=== PATIENT | female | born 1935 | race Caucasian/White ===

== ENCOUNTER 2021-10-24 10:13 | Inpatient (IN) | payer MEDICARE ==
[~2021-10-24] VITALS: Ht 152.4 cm; Wt 55.8 kg
--- NOTE | 2021-10-24 10:24 | NUR ---
DIONICIO FAJARDO from Home "Family called seemed slower than usual/AMS unknown LKWT". TO ER BED 10, HOOKED TO MONITOR, CHANGED TO HOSP GOWN,WARM BLANKET PROVIDED. PATIENT AAO x 2. NOT IN DISTRESS. DR MORGAN AT BEDSIDE
--- NOTE | 2021-10-24 10:28 | NUR ---
SENIOR STATISTICAL PROGRAMMER AT BEDSIDE
[2021-10-24] MEDS ORDERED: IV NS 0.9% 1,000 ML BAG IV ONE (10:30)
--- NOTE | 2021-10-24 10:41 | NUR ---
UNABLE TO PROVIDE URINE AT THIS TIME
--- NOTE | 2021-10-24 10:48 | NUR ---
COVID SWAB DONE AND SENT TO LAB
[2021-10-24 10:49] LABS: BASOPHILS % (AUTO) 0.5 % (0.0-2.0); EOSINOPHILS % (AUTO) 0.5 % (0.0-6.0); HEMATOCRIT 27 % (33-45); LYMPHOCYTES # (AUTO) 0.8 K/uL (0.8-4.8); LYMPHOCYTES % (AUTO) 14.3 % (20.0-44.0); MEAN CORPUSCULAR HGB CONC 34 g/dl (31.0-36.0); MEAN CORPUSCULAR VOLUME 101 fL (82-100); MONOCYTES # (AUTO) 0.2 K/uL (0.1-1.30); MONOCYTES % (AUTO) 2.7 % (2.0-12.0); NEUTROPHILS # (AUTO) 4.7 K/uL (1.8-8.9); PLATELET COUNT (AUTO) 475 K/uL (150-450); RED BLOOD CELL COUNT(AUTO) 2.68 MIL/uL (4.0-5.2); WHITE BLOOD COUNT (AUTO) 5.8 K/uL (4.3-11.0)
[2021-10-24 11:12] LABS: ALANINE AMINOTRANSFERASE 58 U/L (12-78); ALBUMIN 3.1 g/dL (3.4-5.0); ALKALINE PHOSPHATASE 94 U/L (46-116); ASPARTATE AMINOTRANSFERASE 181 U/L (15-37); BILIRUBIN,DIRECT 0.2 mg/dL (0.0-0.2); BILIRUBIN,TOTAL 0.9 mg/dL (0.2-1.0); CALCIUM, SERUM 8.1 mg/dL (8.5-10.1); CARBON DIOXIDE 21 mmol/L (21-32); CHLORIDE 96 mmol/L (98-107); CREATININE 1.5 mg/dL (0.6-1.3); GLUCOSE 149 mg/dL (74-106); POTASSIUM 4.4 mmol/L (3.5-5.1); SODIUM SERUM 129 mmol/L (136-145); TOTAL PROTEIN, SERUM 7.1 g/dL (6.4-8.2); UREA NITROGEN, BLOOD 33 mg/dL (7-18)
--- NOTE | 2021-10-24 11:25 | NUR ---
MOVE SHEET SUBMITTED.
--- NOTE | 2021-10-24 11:29 | NUR ---
URINE SAMPLE COLLECTED VIA STRAIGHT CATHETER, SENT TO LAB. URINE OUTPUT TOTAL 600CC, MADE AWARE
[2021-10-24] MEDS ORDERED: CEFTRIAXONE 1GM BAG (ER ONLY) 1 GM/50 ML PIGGYBACK IV ONE (12:00)
[2021-10-24] MEDS ORDERED: CEFTRIAXONE 1GM BAG (ER ONLY) 50 ML IV ONE (12:00)
--- NOTE | 2021-10-24 12:29 | NUR ---
DR. PETERSON SPEAKING WITH DR. MORGAN.
[2021-10-24] MEDS ORDERED: ASPIRIN 325 MG TABLET ONE (12:30)
[2021-10-24] MEDS ORDERED: ASPIRIN 325 MG TABLET PO ONE (12:30)
--- NOTE | 2021-10-24 12:30 | NUR ---
[facility] CALLED CAFETERIA MONITOR PAGED.
[2021-10-24] MEDS ORDERED: HYDR500C2 PO (12:31)
[2021-10-24] MEDS ORDERED: LEVE500T9 PO (12:31)
[2021-10-24] MEDS ORDERED: CINN500C2 PO (12:31)
[2021-10-24] MEDS ORDERED: ASPI-1169 PO (12:31)
[2021-10-24] MEDS ORDERED: LOSA100T31 PO (12:31)
[2021-10-24] MEDS ORDERED: CARV6.252 PO (12:31)
[2021-10-24] MEDS ORDERED: INSU100I24 SQ (12:31)
[2021-10-24] MEDS ORDERED: GABA-532 PO (12:31)
[2021-10-24] MEDS ORDERED: DULA1.5P SQ (12:31)
[2021-10-24] MEDS ORDERED: PRAV10TA40 PO (12:31)
[2021-10-24] MEDS ORDERED: LEVO25TA2 PO (12:31)
[2021-10-24] MEDS ORDERED: ASCO-352 PO (12:31)
[2021-10-24] MEDS ORDERED: UBID200C36 PO (12:31)
[2021-10-24 12:53] LABS: BILIRUBIN,URINE NEGATIVE (NEGATIVE); COLOR,URINE YELLOW (YELLOW); LEUKOCYTE ESTERASE ,URINE NEGATIVE (NEGATIVE); NITRITE, URINE NEGATIVE (NEGATIVE); PROTEIN,URINE 30 mg/dl (NEGATIVE); UGLUCOSE NEGATIVE (NEGATIVE); UROBILINOGEN,URINE 0.2 EU/dL (0.2)
[2021-10-24 13:23] LABS: BACTERIA,URINE Few /HPF (None Seen); RBC,URINE 0-2 /HPF (0-2); SQUAMOUS EPITHELIAL CELL,UR Rare /HPF (None Seen); URINE AMORPHOUS URATE Moderate /HPF (None Seen); WBC,URINE 0-2 /HPF (0-3)
[2021-10-24] MEDS ORDERED: ONDANSETRON HCL/PF 4 MG/2 ML VIAL IVP PRN (15:00)
[2021-10-24] MEDS ORDERED: IV NS 0.9% 1,000 ML IV ONE (15:00)
[2021-10-24] MEDS ORDERED: PIPERACILLIN /TAZOBACTAM 3.375 G in IV D5W 50 ML IV SCH (18:00)
[2021-10-24] MEDS ORDERED: VANCOMYCIN 1 GM in IV D5W 250ml IV SCH (18:00)
[2021-10-24] MEDS ORDERED: GABAPENTIN 100 MG CAPSULE ONE (18:22)
[2021-10-24] MEDS: GABAPENTIN 100 MG CAPSULE PO SCH (18:23)
--- NOTE | 2021-10-24 18:42 | NUR ---
GOING TO TELE 113.1
--- NOTE | 2021-10-24 19:19 | NUR ---
TROPONIN 378
--- NOTE | 2021-10-24 19:41 | NUR ---
PER [facility] LABORATORY ASSISTANT; [facility] RN RECIEVED REPORT
--- NOTE | 2021-10-24 19:42 | NUR ---
REPORT GIVEN TO LUIS ALFREDO ELISE OF TELE UNIT
--- NOTE | 2021-10-24 19:45 | NUR ---
MEDICAL OFFICE TECHNICIAN NOTES: RECEIVED REPORT FROM FRONT END DEVELOPER JAVASCRIPT HTML CSS NATTY. PT TRANSFERRED TO [facility] FROM ER VIA [facility] WITH ACLS PROTOCOL. PLACED IN ROOM 113 BED 2. PT AWAKE, ALERT/ORIENTED X3 AND VERBALLY RESPONSIVE. BREATHING EVEN AND UNLABORED. ON O2 AT 2L/MIN VIA N/C, O2 SAT 100%. PT TOLERATED WELL. IV ACCESS ON LAC#18G AND LFA#22G INTACT AND PATENT. NO S/S OF INFILTRATIONS. BODY ASSESSMENT DONE. NOTED SKIN REDNESS ON BOTH BIG TOES, LT HEEL AND SACRUM AREA. NO OPEN SKIN OR ANY OTHER SKIN DISCOLORATIONS NOTED. NO C/O PAIN OR DISCOMFORT. NO ACUTE DISTRESS. ALL SAFETY MEASURES IN PLACE. BED IN LOWEST POSITION AND LOCKED. SIDE RAILS UP X2, PLACE CALL LIGHT WITH IN REACH. WILL CONTINUE TO MONITOR
--- NOTE | 2021-10-24 19:56 | NUR ---
PT TRANSFERRED TO [facility] 113-2 VIA ACLS PROTOCOL. ALL BELONGINGS WITH PT. VSS
--- NOTE | 2021-10-24 19:58 | NUR ---
NOTIFIED MR KALIN SARGENT THAT PT GOT ADMITTED TO [facility]
[2021-10-24 20:00] VITALS: BP 108/52
--- NOTE | 2021-10-24 21:56 | NUR ---
RN NOTES: PT WANTS WATER TO DRINK. NOTIFIED ENZO SANTILLAN. ORDERED- BED SIDE SWALLOW EVAL. NOTED AND CARRIED OUT. GAVE HER SEVERAL SPOONS OF WATER, PT WAS ABLE TO SWALLOW WITHOUT ANY DIFFICULTIES. NOTIFIED DR. BELLO.
[2021-10-24] MEDS ORDERED: CEFTRIAXONE 1 G in IV D5W 50 ML IV SCH (22:00)
[2021-10-24] MEDS: IV NS 0.9% 1,000 ML IV PRN (22:03)
[2021-10-24] MEDS ORDERED: CEFTRIAXONE 1 G VIAL ONE (22:13)
[2021-10-24] MEDS: ATORVASTATIN 10 MG TABLET PO SCH (22:17)
[2021-10-25] VITALS (11 sets, daily range): BP systolic 99–153; BP diastolic 38–87
--- NOTE | 2021-10-25 03:43 | NUR ---
RN NOTES: RECEIVED CRITICAL LAB(ASHLEY), PT'S TROPONIN LEVEL 237 NOW. INITIALLY IT WAS-551 YESTERDAY, AT [phone], NOW TRENDING DOWN. MADE AWARE ENZO SANTILLAN WITH NNO. WILL CONTINUE TO MONITOR
--- NOTE | 2021-10-25 06:43 | NUR ---
RN CLOSING NOTES: PT SLEEPING IN BED, BUT EASILY AROUSABLE, ALERT/ORIENTED X3 AND VERBALLY RESPONSIVE. BREATHING EVEN AND UNLABORED. ON O2 AT 2L/MIN VIA N/C, O2 SAT 98%. PT TOLERATED WELL. IV ACCESS ON LAC#18G AND LFA#22G INTACT AND PATENT. NO S/S OF INFILTRATIONS. RUNNING NS AT 75CC/HR. NO C/O PAIN OR DISCOMFORT. NO ACUTE DISTRESS. ALL DUE MEDS GIVEN ORDERED. ALL SAFETY MEASURES IN PLACE. BED IN LOWEST POSITION AND LOCKED. SIDE RAILS UP X2, PLACE CALL LIGHT WITH IN REACH. WILL ENDORSE TO MORNING SHIFT NURSE.
[2021-10-25 07:18] LABS: BASOPHILS % (AUTO) 0.2 % (0.0-2.0); EOSINOPHILS % (AUTO) 1.3 % (0.0-6.0); HEMATOCRIT 23 % (33-45); HEMOGLOBIN 7.6 g/dL (11.5-14.8); LYMPHOCYTES # (AUTO) 0.7 K/uL (0.8-4.8); LYMPHOCYTES % (AUTO) 15.2 % (20.0-44.0); MEAN CORPUSCULAR HGB CONC 33 g/dl (31.0-36.0); MEAN CORPUSCULAR VOLUME 101 fL (82-100); MONOCYTES # (AUTO) 0.2 K/uL (0.1-1.30); NEUTROPHILS # (AUTO) 3.6 K/uL (1.8-8.9); NEUTROPHILS % (AUTO) 79.3 % (43.0-81.0); PLATELET COUNT (AUTO) 391 K/uL (150-450); RED BLOOD CELL COUNT(AUTO) 2.28 MIL/uL (4.0-5.2); WHITE BLOOD COUNT (AUTO) 4.5 K/uL (4.3-11.0)
--- NOTE | 2021-10-25 07:30 | NUR ---
RN OPENING NOTES; RECEIVED PATIENT IN BED, AWAKE, ALERT X 2. PATIENT IS ON OXYGEN @ 2L/MIN VIA N/C. PATIENT HAS NO S/ OF SOB, NOTED TO HAVE UNLABORED BREATHING, NO RESPIRATORY DISTRESS NOTED. PATIENT IS ON SR WITH HR OF 67. PATIENT HAS IV SITE ON LAC # 18 INFUSING WITH NS @ 75CC/HR, NO S/S OF INFILTRATION OF THE IV SITE, IV SITE ON LFA # 22, PATENT AND FLUSHING WELL. NO S/S OF PAIN OR DISCOMFORT. SKIN WARM AND DRY TO TOUCH. SAFETY MEASURES INITIATED. HOB ELEVATED, BED LOCKED AND IN LOWEST POSITION, SR UP, CALL LIGHT WITHIN REACH. WILL CONTINUE TO MONITOR THROUGH SHIFT.
[2021-10-25 08:12] LABS: ALBUMIN 2.5 g/dL (3.4-5.0); BILIRUBIN,TOTAL 0.4 mg/dL (0.2-1.0); CALCIUM, SERUM 7.7 mg/dL (8.5-10.1); CREATININE 1.3 mg/dL (0.6-1.3); MAGNESIUM 2.4 mg/dL (1.8-2.4); PHOSPHORUS 4.3 mg/dL (2.5-4.9); TOTAL PROTEIN, SERUM 5.9 g/dL (6.4-8.2)
[2021-10-25] MEDS ORDERED: CEFTRIAXONE 1 G in IV D5W 50 ML IV SCH (08:17)
[2021-10-25] MEDS: LEVOTHYROXINE SODIUM 25 MCG TABLET PO SCH (08:24)
[2021-10-25] MEDS: LEVETIRACETAM (250 MG) 250 MG TABLET PO SCH ×2 (08:25→17:05)
[2021-10-25] MEDS: ASPIRIN 81 MG TAB.CHEW PO SCH (08:25)
[2021-10-25] MEDS: ASCORBIC ACID 500 MG TABLET PO SCH ×2 (08:25→17:05)
[2021-10-25] MEDS: ACETAMINOPHEN 325 MG TABLET PO PRN (08:26)
[2021-10-25] MEDS: INSULIN GLARGINE, 100 UNIT/ML CARTRIDGE SQ SCH ×2 (08:27→16:49)
--- NOTE | 2021-10-25 08:28 | NUR ---
LANTUS HELD DUE TO PATIENT'S BLOOD SUGAR WAS 82 MG/DL. PATIENT ONLY CONSUMED 25% OF BREAKFAST
[2021-10-25] MEDS ORDERED: Medication Not On Formulary EA (Pravastatin Sodium 10 MG) PO SCH (09:00)
[2021-10-25] MEDS ORDERED: ASPIRIN 81 MG TAB.CHEW PO SCH (09:00)
[2021-10-25] MEDS ORDERED: UBIDECARENONE 200 MG PO SCH (09:00)
[2021-10-25] MEDS ORDERED: PANTOPRAZOLE 40 MG VIAL IV SCH (09:00)
[2021-10-25] MEDS ORDERED: Medication Not On Formulary EA (Levetiracetam (Keppra) 500 MG) PO SCH (09:00)
[2021-10-25] MEDS ORDERED: CINNAMON BARK 500 MG PO SCH (09:00)
[2021-10-25] MEDS: HYDROXYUREA 500 MG CAPSULE PO SCH (09:34)
[2021-10-25 10:03] LABS: THYROID STIMULATING HORMONE 1.604 uIU/mL (0.358-3.74)
--- NOTE | 2021-10-25 11:20 | NUR ---
RECEIVED A CALL FROM [facility] STATING THAT THEY DON'T CARRY TRULICITY. SPOKE WITH AND SAID THAT HE WILL BRING THE MED TODAY WHEN HE COMES IN AN HOUR.
[2021-10-25 11:26] LABS: IRON, SERUM 25 ug/dl (50-175); TOTAL IRON BINDING CAPACITY 181 ug/dl (250-450)
[2021-10-25] MEDS: IV NS 0.9% 1,000 ML IV PRN (12:22)
[2021-10-25 12:27] LABS: FERRITIN 617 ng/mL (8-388)
--- NOTE | 2021-10-25 12:47 | NUR ---
PT'S CAME BY BUT DID NOT BRING THE MEDICATION TRULICITY. WILL BRING IT LATER IN PM
[2021-10-25] MEDS: GABAPENTIN 100 MG CAPSULE PO SCH (17:04)
--- NOTE | 2021-10-25 18:52 | NUR ---
RN CLOSING NOTES: PATIENT IN BED, AWAKE, ALERT X 2. PATIENT REMAINS ON OXYGEN @ 2L/MIN VIA N/C. NO SOB NOTED AT THIS TIME, BREATHING EVEN AND UNLABORED. NO RESPIRATORY DISTRESS NOTED. PATIENT IS ON SR WITH HR OF 72. AMY HAS AN ONGOING BLOOD TRANSFUSION ORDERED BY DR. PETERSON, NO IMMEDIATE REACTIONS NOTED ON THE PATIENT AT THIS TIME, NO C/O PAIN OR DISCOMFORT. PATIENT HAS IV SITE ON LAC # 18. NO S/S OF INFILTRATION OF THE IV SITE, IV SITE ON LFA # 22, PATENT AND FLUSHING WELL. . SAFETY MEASURES INITIATED. HOB ELEVATED, BED LOCKED AND IN LOWEST POSITION, SR UP, CALL LIGHT WITHIN REACH. WILL CONTINUE TO MONITOR THROUGH SHIFT. Addendum: 10/25/21 at 1857 by THANH BRIONES RN WILL ENDORSE TO NEXT SHIFT NURSE FOR CONTINUITY OF CARE AND TO MONITOR COMPLETION OF BLOOD TRANSFUSION.
--- NOTE | 2021-10-25 18:55 | NUR ---
GOSIA NOTES: BLOOD TRANSFUSION WAS COMPLETED. PT TOLERATED WELL. NO ADVERSE REACTIONS. PT AFEBRILE. V/S STABLE. WILL CONTINUE TO MONITOR Addendum: 10/25/21 at 2232 by WILLIAM LOBATO RN wrong time
--- NOTE | 2021-10-25 19:55 | NUR ---
RN NOTES: BLOOD TRANSFUSION WAS COMPLETED. PT TOLERATED WELL. NO ADVERSE REACTIONS. NO NOTED RASHES OR HIVES. PT AFEBRILE. WILL CONTINUE TO MONITOR
--- NOTE | 2021-10-25 20:45 | NUR ---
2044 Noted patient tachypneic RR 36. O2 saturation 82% on 4L NC. Patient awake and verbally responsive. Skin pale and clammy. BS 167mg/dl when checked. Placed patient on NRM noted O2 saturation went up to 93%. Repositioned patient on high fowlers for maximum oxygenation. With c/o difficulty breathing when asked. Called RT to check patient. Called placed to HYDRO PLANT SITE MANAGER Palomares and made him aware of patient's change of condition with orders given. Orders noted and carried out.
--- NOTE | 2021-10-25 20:55 | NUR ---
2054 Vital signs taken as follows: BP 142/67, HR 118 sinus, RR 38, O2 sat 93% on NRM.
[2021-10-25 21:12] LABS: BASOPHILS % (AUTO) 0.2 % (0.0-2.0); EOSINOPHILS % (AUTO) 0.8 % (0.0-6.0); HEMATOCRIT 37 % (33-45); HEMOGLOBIN 11.9 g/dL (11.5-14.8); LYMPHOCYTES # (AUTO) 0.8 K/uL (0.8-4.8); LYMPHOCYTES % (AUTO) 5.3 % (20.0-44.0); MEAN CORPUSCULAR HGB CONC 33 g/dl (31.0-36.0); MEAN CORPUSCULAR VOLUME 102 fL (82-100); MONOCYTES # (AUTO) 0.2 K/uL (0.1-1.30); MONOCYTES % (AUTO) 1.1 % (2.0-12.0); NEUTROPHILS # (AUTO) 14.3 K/uL (1.8-8.9); NEUTROPHILS % (AUTO) 92.6 % (43.0-81.0); PLATELET COUNT (AUTO) 488 K/uL (150-450); RED BLOOD CELL COUNT(AUTO) 3.59 MIL/uL (4.0-5.2); WHITE BLOOD COUNT (AUTO) 15.4 K/uL (4.3-11.0)
[2021-10-25 21:21] LABS: ABG BASE EXCESS -14.5 mmol/L; ABG OXYGEN SATURATION 94.4 % (92.0-98.5); ABG PCO2 17.6 mmHg (35.0-45.0); ABG PO2 76.5 mmHg (75.0-100.0); AaDO2 618.9 mmHg; COHb 0.3 % (0.5-1.5); MetHb 0.3 % (0.0-1.5); O2Hb 93.8 % (94.0-97.0); SITE, ABG Right Radial; VENT MODE, BG 15LPM NRB
--- NOTE | 2021-10-25 21:30 | NUR ---
130 ABG and CBC results relayed to MECHANICAL METER TESTER Jelani. Awaiting orders at this time. Patient awake and verbally responsive. Vital signs checked again as follows: BP 136/77 HR 117 sinus, RR 40, O2 saturation 96% on NRM. Patient remains verbally responsive. Requesting to use bedside commode. Explained to patient that she's too short of breath to get on the commode. HOB kept elevated for maximum oxygenation. CXR result still pending. Patient being closely monitored.
--- NOTE | 2021-10-25 22:09 | NUR ---
8247 Called Radiology to follow up on CXR result. Tech will fax order now.
[2021-10-25] MEDS: ATORVASTATIN 10 MG TABLET PO SCH (22:22)
[2021-10-25] MEDS: CEFTRIAXONE 1 G in IV D5W 50 ML IV SCH (22:23)
--- NOTE | 2021-10-25 22:30 | NUR ---
2230 PACKAGING SPECIALIST Palomares at bedside and examined patient with order made.
--- NOTE | 2021-10-25 22:35 | NUR ---
2021 INSTRUCTIONAL RESOURCE TEACHER Jelani made aware that patient keeps removing her NRM causing her O2 saturation to drop immediately to low 80s with order to apply soft wrist restraints to prevent from pulling life saving device. Order noted and carried out.
[2021-10-25] MEDS ORDERED: LEVALBUTEROL HCL NEB 1.25 MG/0.5 ML VIAL.NEB NEB SCH (23:00)
[2021-10-25] MEDS ORDERED: IPRATROPIUM NEB FS 0.5 MG/2.5 ML AMPUL.NEB NEB PRN (23:00)
[2021-10-25] MEDS ORDERED: LEVALBUTEROL HCL NEB 1.25 MG/0.5 ML VIAL.NEB NEB PRN (23:45)
[2021-10-26] VITALS (26 sets, daily range): BP systolic 87–152; BP diastolic 20–70
[2021-10-26] MEDS ORDERED: FUROSEMIDE 40 MG/4 ML VIAL IV ONE (00:30)
--- NOTE | 2021-10-26 00:30 | NUR ---
0030 OCC THER Palomares in the unit and re assessed patient with orders to transfer to icu for rescue bipap and give Lasix 40mg ivp once. Order noted.
--- NOTE | 2021-10-26 01:13 | NUR ---
0113 Transferred to ICU on ACLS protocol. Patient awake and verbally responsive. Remains tachypneic on NRM. O2 saturation 96%. HOB elevated for maximum oxygenation.
--- NOTE | 2021-10-26 01:15 | NUR ---
ICU/RN: RECEIVED PT FROM [facility]. CORNELIUS PAUL RN PLACED GUSTAFSON CATH 1150ML [place] URINE. RETURNED. PT LINENS CHANGED. PT POSITIONED IN HIGH FOLWERS POSITION. BED IN LOW LOCKED POSITION SIDE RAILS UP. CONTINUE PLAN OF CARE.
--- NOTE | 2021-10-26 01:28 | NUR ---
RN NOTES: REPORT GIVEN TO JAREN NEWSPAPER EDITOR. PT TRANSFERRED TO ICU PER DR'S ORDER WITH ACLS PROTOCOL.
--- NOTE | 2021-10-26 01:46 | NUR ---
RT NOTE PATIENT PLACED ON BIPAP ON ORDERED SETTINGS OF S/T 15/5 RR20 100%. PATIENT IS AWAKE AND ALERT. ALARMS ARE SET AND AUDIBLE. MECHANICAL VENT IS PLUGGED INTO RED OUTLET. EMERGENCY EQUIPMENT AT PATIENT BEDSIDE. WAITING FOR FURTHER ORDERS. Addendum: 10/26/21 at 0148 by TOMAS LOPEZ RT Amended: Links added.
[2021-10-26] MEDS ORDERED: LORAZEPAM INJ 2 MG/ML VIAL IV PRN (02:00)
[2021-10-26 03:18] LABS: ABG BASE EXCESS -14.7 mmol/L; ABG OXYGEN SATURATION 99.3 % (92.0-98.5); ABG PCO2 22.4 mmHg (35.0-45.0); ABG PH 7.275 (7.350-7.450); ABG PO2 258.2 mmHg (75.0-100.0); AaDO2 432.4 mmHg; COHb 0.3 % (0.5-1.5); MetHb 0.4 % (0.0-1.5); O2Hb 98.6 % (94.0-97.0); SITE, ABG Right Radial; VENT MODE, BG S/T 15/5 RR20 100%
--- NOTE | 2021-10-26 03:25 | NUR ---
ICU/RN: ABG RESULTS RELAYED TO EUGENIA LORA. NEW ORDERS FOR ABG @0600 AND IV SOLUMEDROL 125MG x1 NOW. WILL CONTINUE WITH PLAN OF CARE.
[2021-10-26] MEDS ORDERED: methylPREDNISolone SOD SUCC 125 MG/2ML VIAL IV ONE (03:30)
--- NOTE | 2021-10-26 03:32 | NUR ---
RT NOTE POST BIPAP ABG RESULTS REPORTED TO FIO2 TITRATED TO 50%. FOLLOW UP ABG AT 0600. Addendum: 10/26/21 at 0332 by TOMAS LOPEZ RT Amended: Links added.
[2021-10-26 03:58] LABS: BASOPHILS % (AUTO) 0.2 % (0.0-2.0); EOSINOPHILS % (AUTO) 0.1 % (0.0-6.0); HEMATOCRIT 34 % (33-45); HEMOGLOBIN 11.3 g/dL (11.5-14.8); LYMPHOCYTES # (AUTO) 0.5 K/uL (0.8-4.8); LYMPHOCYTES % (AUTO) 3.9 % (20.0-44.0); MEAN CORPUSCULAR HGB CONC 33 g/dl (31.0-36.0); MEAN CORPUSCULAR VOLUME 99 fL (82-100); MONOCYTES # (AUTO) 0.2 K/uL (0.1-1.30); MONOCYTES % (AUTO) 1.3 % (2.0-12.0); NEUTROPHILS # (AUTO) 13.2 K/uL (1.8-8.9); NEUTROPHILS % (AUTO) 94.5 % (43.0-81.0); PLATELET COUNT (AUTO) 444 K/uL (150-450); RED BLOOD CELL COUNT(AUTO) 3.47 MIL/uL (4.0-5.2); WHITE BLOOD COUNT (AUTO) 13.9 K/uL (4.3-11.0)
--- NOTE | 2021-10-26 04:00 | NUR ---
ICU/RN: LABS DRAWN EARLY PER EUGENIA GIRALDO ACNP REQUEST.
[2021-10-26 04:12] LABS: CARBON DIOXIDE 14 mmol/L (21-32); CHLORIDE 97 mmol/L (98-107); GLUCOSE 192 mg/dL (74-106); MAGNESIUM 2.2 mg/dL (1.8-2.4); PHOSPHORUS 6.3 mg/dL (2.5-4.9); POTASSIUM 5.4 mmol/L (3.5-5.1); SODIUM SERUM 127 mmol/L (136-145); UREA NITROGEN, BLOOD 42 mg/dL (7-18)
[2021-10-26] MEDS ORDERED: ACETAMINOPHEN 650 MG/SUPP.RECT RC PRN (04:30)
--- NOTE | 2021-10-26 04:51 | NUR ---
ICU/RN: CRITICAL LABS AND PT CONDITION RELAYED TO EUGENIA LORA. WILL CONTINUE PLAN OF CARE.
[2021-10-26 05:08] LABS: BILIRUBIN,DIRECT 0.2 mg/dL (0.0-0.2)
[2021-10-26 06:14] LABS: ABG BASE EXCESS -15.3 mmol/L; ABG OXYGEN SATURATION 96.8 % (92.0-98.5); ABG PH 7.317 (7.350-7.450); ABG PO2 99.2 mmHg (75.0-100.0); AaDO2 238.2 mmHg; COHb 0.3 % (0.5-1.5); MetHb 0.6 % (0.0-1.5); O2Hb 95.9 % (94.0-97.0); SITE, ABG Right Brachial; VENT MODE, BG S/T 15/5 RR20 50%
--- NOTE | 2021-10-26 06:38 | NUR ---
ICU/RN: 0600 ABG RELAYED TO EUGENIA GIRALDO ACNP NO NEW ORDERS.
--- NOTE | 2021-10-26 07:45 | NUR ---
pt. is awake and follow commands placed into nasal cannula @ 3 lpm o2 flow. spo2 95% . bipap on stand by @ bedside. Addendum: 10/26/21 at 0747 by HENRIETTA MEI RT Amended: Links added.
[2021-10-26] MEDS: LEVOTHYROXINE SODIUM 25 MCG TABLET PO SCH (07:56)
--- NOTE | 2021-10-26 08:00 | NUR ---
Dr Mireles @ bedside assessing patient. Updated MD with patient progress
[2021-10-26] MEDS: LEVETIRACETAM (250 MG) 250 MG TABLET PO SCH ×2 (08:15→17:02)
[2021-10-26] MEDS: ASPIRIN 81 MG TAB.CHEW PO SCH (08:15)
[2021-10-26] MEDS: HYDROXYUREA 500 MG CAPSULE PO SCH (08:15)
[2021-10-26] MEDS: ASCORBIC ACID 500 MG TABLET PO SCH ×2 (08:16→17:02)
[2021-10-26] MEDS: INSULIN GLARGINE, 100 UNIT/ML CARTRIDGE SQ SCH (08:59)
[2021-10-26] MEDS ORDERED: INSULIN REGULAR, HUMAN 100 UNIT/ML 3 ML VIAL SQ PRN (09:00)
[2021-10-26] MEDS ORDERED: DEXTROSE 50%-WATER 50 ML DISP.SYRIN IV PRN (09:00)
[2021-10-26] MEDS ORDERED: *INSULIN REGULAR(HUMULIN R)HUM 100 UNIT/ML VIAL SQ PRN (09:00)
[2021-10-26] MEDS: PANTOPRAZOLE 40 MG TABLET.DR PO SCH (09:03)
[2021-10-26] MEDS ORDERED: IPRATROPIUM NEB FS 0.5 MG/2.5 ML AMPUL.NEB NEB PRN (10:20)
[2021-10-26] MEDS ORDERED: ALBUTEROL FS 2.5 MG/0.5 ML VIAL.NEB NEB PRN ×2 (10:30)
[2021-10-26] MEDS ORDERED: IV NS 0.9% 1,000 ML IV PRN (12:00)
--- NOTE | 2021-10-26 12:09 | NUR ---
Family @ bedside (Fozia -niece) conversing with patient. Updated family of plan of care.
[2021-10-26 12:20] LABS: ABG BASE EXCESS -16.3 mmol/L; ABG OXYGEN SATURATION 92.1 % (92.0-98.5); ABG PO2 71.7 mmHg (75.0-100.0); AaDO2 142.6 mmHg; COHb 0.1 % (0.5-1.5); MetHb 0.4 % (0.0-1.5); O2Hb 91.6 % (94.0-97.0); SITE, ABG Right Brachial; VENT MODE, BG nasal cannula
[2021-10-26] MEDS ORDERED: IV D5W 1,000 ML IV ONE (14:00)
[2021-10-26] MEDS: INSULIN REGULAR, HUMAN 100 UNIT in IV NS 0.9% 99 ML IV PRN ×2 (15:13)
[2021-10-26] MEDS: BLOOD SUGAR DIAGNOSTIC 1 EACH STRIP IN SCH ×7 (17:04→23:01)
[2021-10-26] MEDS: GABAPENTIN 100 MG CAPSULE PO SCH (17:29)
--- NOTE | 2021-10-26 19:56 | NUR ---
RT NOTE PT RECEIVED ON 3LPM NASAL CANNULA. PT IS RESTING AND SLEEPING BUT RR > 30. SPO2 @ 97%. BIPAP AT STANDBY, WILL CONTINUE TO MONITOR CLOSELY.
[2021-10-26 20:49] LABS: CALCIUM, SERUM 7.8 mg/dL (8.5-10.1); CARBON DIOXIDE 13 mmol/L (21-32); CHLORIDE 99 mmol/L (98-107); CREATININE 2.4 mg/dL (0.6-1.3); GLUCOSE 310 mg/dL (74-106); POTASSIUM 3.7 mmol/L (3.5-5.1); SODIUM SERUM 128 mmol/L (136-145); UREA NITROGEN, BLOOD 57 mg/dL (7-18)
--- NOTE | 2021-10-26 21:19 | NUR ---
ICU/RN: POTASSIUM REPLACEMENT PER DKA PROTOCOL. WILL CONTINUE WITH PLAN OF CARE.
[2021-10-26] MEDS ORDERED: POTASSIUM CL. PREMIX PERIPHER. 50 ML IV ONE (21:30)
[2021-10-26] MEDS: ATORVASTATIN 10 MG TABLET PO SCH (22:03)
[2021-10-26] MEDS: CEFTRIAXONE 1 G in IV D5W 50 ML IV SCH (22:32)
[2021-10-27] VITALS (32 sets, daily range): BP systolic 89–149; BP diastolic 48–105
[2021-10-27] MEDS: BLOOD SUGAR DIAGNOSTIC 1 EACH STRIP IN SCH ×17 (00:05→21:44)
[2021-10-27 00:52] LABS: CALCIUM, SERUM 8.1 mg/dL (8.5-10.1); CARBON DIOXIDE 16 mmol/L (21-32); CHLORIDE 99 mmol/L (98-107); CREATININE 2.4 mg/dL (0.6-1.3); GLUCOSE 252 mg/dL (74-106); POTASSIUM 4.2 mmol/L (3.5-5.1); SODIUM SERUM 128 mmol/L (136-145); UREA NITROGEN, BLOOD 59 mg/dL (7-18)
[2021-10-27 03:57] LABS: BASOPHILS % (AUTO) 0.1 % (0.0-2.0); HEMATOCRIT 33 % (33-45); HEMOGLOBIN 11.3 g/dL (11.5-14.8); LYMPHOCYTES # (AUTO) 0.5 K/uL (0.8-4.8); LYMPHOCYTES % (AUTO) 3.6 % (20.0-44.0); MEAN CORPUSCULAR HGB CONC 34 g/dl (31.0-36.0); MEAN CORPUSCULAR VOLUME 96 fL (82-100); MONOCYTES # (AUTO) 0.3 K/uL (0.1-1.30); MONOCYTES % (AUTO) 2.2 % (2.0-12.0); NEUTROPHILS # (AUTO) 12.8 K/uL (1.8-8.9); NEUTROPHILS % (AUTO) 94.1 % (43.0-81.0); PLATELET COUNT (AUTO) 403 K/uL (150-450); RED BLOOD CELL COUNT(AUTO) 3.44 MIL/uL (4.0-5.2); WHITE BLOOD COUNT (AUTO) 13.6 K/uL (4.3-11.0)
[2021-10-27 04:07] LABS: CALCIUM, SERUM 8.2 mg/dL (8.5-10.1); CARBON DIOXIDE 16 mmol/L (21-32); CHLORIDE 98 mmol/L (98-107); CREATININE 2.3 mg/dL (0.6-1.3); GLUCOSE 203 mg/dL (74-106); SODIUM SERUM 129 mmol/L (136-145); UREA NITROGEN, BLOOD 57 mg/dL (7-18)
[2021-10-27 04:12] LABS: ALANINE AMINOTRANSFERASE 84 U/L (12-78); ALBUMIN 2.5 g/dL (3.4-5.0); ALKALINE PHOSPHATASE 107 U/L (46-116); ASPARTATE AMINOTRANSFERASE 155 U/L (15-37); BILIRUBIN,TOTAL 0.3 mg/dL (0.2-1.0); MAGNESIUM 2.4 mg/dL (1.8-2.4); PHOSPHORUS 4.6 mg/dL (2.5-4.9); TOTAL PROTEIN, SERUM 6.4 g/dL (6.4-8.2)
[2021-10-27] MEDS: BLOOD SUGAR DIAGNOSTIC 1 EACH STRIP VI SCH ×2 (06:42→12:02)
[2021-10-27] MEDS: LEVOTHYROXINE SODIUM 25 MCG TABLET PO SCH (07:46)
[2021-10-27] MEDS: PANTOPRAZOLE 40 MG TABLET.DR PO SCH (08:13)
[2021-10-27] MEDS: ASPIRIN 81 MG TAB.CHEW PO SCH (08:13)
[2021-10-27] MEDS: HYDROXYUREA 500 MG CAPSULE PO SCH (08:13)
[2021-10-27] MEDS: LEVETIRACETAM (250 MG) 250 MG TABLET PO SCH ×2 (08:15→17:30)
[2021-10-27] MEDS: ASCORBIC ACID 500 MG TABLET PO SCH ×2 (08:15→17:30)
[2021-10-27] MEDS: INSULIN REGULAR, HUMAN 100 UNIT in IV NS 0.9% 99 ML IV PRN ×2 (08:33)
[2021-10-27 08:45] LABS: CALCIUM, SERUM 8.3 mg/dL (8.5-10.1); CARBON DIOXIDE 16 mmol/L (21-32); CHLORIDE 101 mmol/L (98-107); CREATININE 2.1 mg/dL (0.6-1.3); GLUCOSE 151 mg/dL (74-106); POTASSIUM 4.2 mmol/L (3.5-5.1); SODIUM SERUM 130 mmol/L (136-145); UREA NITROGEN, BLOOD 54 mg/dL (7-18)
[2021-10-27] MEDS ORDERED: IV D5/ 0.9% NACL 1,000 ML IV PRN (09:00)
[2021-10-27 09:13] LABS: ABG BASE EXCESS -10.1 mmol/L; ABG OXYGEN SATURATION 95.8 % (92.0-98.5); ABG PCO2 18.7 mmHg (35.0-45.0); ABG PH 7.428 (7.350-7.450); ABG PO2 83.1 mmHg (75.0-100.0); AaDO2 108.8 mmHg; COHb 0.3 % (0.5-1.5); MetHb 0.4 % (0.0-1.5); O2Hb 95.1 % (94.0-97.0); SITE, ABG Right Radial
--- NOTE | 2021-10-27 09:31 | NUR ---
RELAYED TO DR. JOHNSON RECENT LABS, BMP.
--- NOTE | 2021-10-27 09:48 | NUR ---
DR JOHNSON SEEN PT. WITH NEW ORDERS NOTED OF IVF.
[2021-10-27] MEDS ORDERED: Sodium Chloride 154 MEQ in IV 10% DEXTROSE 1,000 ML IV SCH (10:00)
[2021-10-27 12:15] LABS: CARBON DIOXIDE 13 mmol/L (21-32); CHLORIDE 101 mmol/L (98-107); GLUCOSE 197 mg/dL (74-106); POTASSIUM 4.1 mmol/L (3.5-5.1); SODIUM SERUM 129 mmol/L (136-145); UREA NITROGEN, BLOOD 54 mg/dL (7-18)
--- NOTE | 2021-10-27 13:15 | NUR ---
RELAYED TO DR. JOHNSON THE RECENT 12NOON BMP RESULTS.; ALSO NOTIFIED MD THAT PATIENT'S IS VISITING PATIENT NOW AND REQUESTING A CONVERSATION WITH PRIMARY MD.
[2021-10-27] MEDS: INSULIN GLARGINE, 100 UNIT/ML CARTRIDGE SQ SCH ×2 (14:00→21:47)
--- NOTE | 2021-10-27 14:00 | NUR ---
DR JOHNSON WITH NEW ORDERS OF IVF, D/C INSULIN DRIP. WILL CARRY OUT MD ORDERS.
[2021-10-27] MEDS: IV D5/0.45 NACL 1,000 ML IV PRN (14:41)
[2021-10-27] MEDS: ACETAMINOPHEN 325 MG TABLET PO PRN (17:30)
[2021-10-27] MEDS: GABAPENTIN 100 MG CAPSULE PO SCH (17:31)
[2021-10-27] MEDS: INSULIN REGULAR, HUMAN 100 UNIT/ML 3 ML VIAL SQ PRN (17:35)
--- NOTE | 2021-10-27 18:02 | NUR ---
PT. WITH EXTREME AGITATION AND STAFF REMAINS AT PT. BEDSIDE FOR MONITORING.
--- NOTE | 2021-10-27 18:18 | NUR ---
REPORTED TO DR JOHNSON REGARDING HR RANGING FROM 120s -140s and BP 131/105. AND PT. ANXIOUS. WITH NEW ORDERS OF EKG AND ATIVAN IVP ONCE.
[2021-10-27] MEDS ORDERED: LORAZEPAM INJ 2 MG/ML VIAL IV ONE (18:30)
--- NOTE | 2021-10-27 19:36 | NUR ---
PERL DEVELOPER OPENING NOTE PT RECEIVED IN BED AWAKE, A&O X2-3. ON 3L NC WITH CURRENT O2SAT OF 96%; PT NOTED TO HAVE MILD SOB, NO OTHER S/S OF RESP DISTRESS, NON-LABORED AND EQUAL BREATHING, NO COUGH. ATTACHED TO EXTERNAL MONITOR, ST WITH BBB, CURRENT HR OF 103. GUSTAFSON INTACT AND PATENT WITH NO SIGNS OF LEAKING, DRAINING CLEAR AND YELLOW URINE. IV ACCESS ON LFA 22G WITH D5 NS RUNNING AT 75 ML/HR. BED IN LOWEST POSITION, CALL LIGHT WITHIN REACH, SIDE RAILS UP X3. WILL CONTINUE TO MONITOR THROUGHOUT THE NIGHT.
[2021-10-27] MEDS: CEFTRIAXONE 1 G in IV D5W 50 ML IV SCH (21:33)
[2021-10-27] MEDS: ATORVASTATIN 10 MG TABLET PO SCH (21:34)
[2021-10-27] MEDS: *INSULIN REGULAR(HUMULIN R)HUM 100 UNIT/ML VIAL SQ PRN (21:49)
[2021-10-28] VITALS (38 sets, daily range): BP systolic 92–156; BP diastolic 41–73
[2021-10-28] MEDS: IV D5/0.45 NACL 1,000 ML IV PRN (04:31)
--- NOTE | 2021-10-28 06:42 | NUR ---
SALVAGE INSPECTOR CLOSING NOTE PT REMAINS IN BED, A/O X2-3, SLEPT INTERMITTENTLY THROUGHOUT THE NIGHT, CALM, COOPERATIVE. PT CONTINUES TO BE ON 3L NC, O2SAT RANGED FROM 92%-98% WITH MILD SOB; PT ALSO NOTED TO INTERMITTENTLY MAKE GROANING-LIKE SOUNDS WHEN BREATHING; NO OTHER S/S OF RESP DISTRESS, NON-LABORED AND EQUAL BREATHING, NO COUGH. ATTACHED TO EXTERNAL MONITOR ST WITH BBB, HR RANGING FROM 90-125 THROUGHOUT THE NIGHT. GUSTAFSON INTACT AND PATENT WITH NO SIGNS OF LEAKING DRAINING CLEAR AND YELLOW URINE. PT HAD SMALL BM EARLIER TODAY. DTI ON SACRUM WAS CLEANSED AND MEPILEX APPLIED. LFA 22G INTACT AND PATENT, FLUSHES EASILY WITH NO RESISTANCE, HAS D5 NS RUNNING AT 75 ML/HR. ALL DUE MEDS ADMINISTERED DURING THE NIGHT. BED IN LOWEST POSITION, CALL LIGHT WITHIN REACH, SIDE RAILS UP X3. WILL ENDORSE TO DAYSHIFT NURSE TO CONTINUE CARE.
--- NOTE | 2021-10-28 07:05 | NUR ---
RN NOTES PT RECEIVED IN BED AWAKE, A&O X1 , ON 3L NC WITH CURRENT O2SAT OF 96%; MILD SOB NOTED, HR IN IN 110'S , PT IS TACHYPNEIC , RESTLESS , GUSTAFSON INTACT AND PATENT WITH NO SIGNS OF LEAKING, DRAINING CLEAR AND YELLOW URINE. IV ACCESS ON LFA 22G WITH D5 NS RUNNING AT 75 ML/HR. BED IN LOWEST POSITION, CALL LIGHT WITHIN REACH, SIDE RAILS UP X3. WILL CONTINUE TO MONITOR .
[2021-10-28] MEDS: ASCORBIC ACID 500 MG TABLET PO SCH ×2 (08:38→16:51)
[2021-10-28] MEDS: ASPIRIN 81 MG TAB.CHEW PO SCH (08:38)
[2021-10-28] MEDS: LEVOTHYROXINE SODIUM 25 MCG TABLET PO SCH (08:38)
[2021-10-28] MEDS: HYDROXYUREA 500 MG CAPSULE PO SCH (08:39)
[2021-10-28] MEDS: LEVETIRACETAM (250 MG) 250 MG TABLET PO SCH ×2 (08:39→16:51)
[2021-10-28] MEDS: PANTOPRAZOLE 40 MG TABLET.DR PO SCH (08:39)
[2021-10-28] MEDS: INSULIN REGULAR, HUMAN 100 UNIT/ML 3 ML VIAL SQ PRN ×3 (08:58→17:20)
[2021-10-28] MEDS: BLOOD SUGAR DIAGNOSTIC 1 EACH STRIP IN SCH ×4 (08:59→21:34)
[2021-10-28] MEDS: FUROSEMIDE 40 MG/4 ML VIAL IV SCH ×2 (09:13→12:48)
[2021-10-28 09:26] LABS: HEMATOCRIT 34 % (33-45); HEMOGLOBIN 11.5 g/dL (11.5-14.8); LYMPHOCYTES # (AUTO) 0.7 K/uL (0.8-4.8); LYMPHOCYTES % (AUTO) 7.4 % (20.0-44.0); MEAN CORPUSCULAR HGB CONC 34 g/dl (31.0-36.0); MEAN CORPUSCULAR VOLUME 98 fL (82-100); MONOCYTES # (AUTO) 0.2 K/uL (0.1-1.30); MONOCYTES % (AUTO) 1.8 % (2.0-12.0); NEUTROPHILS % (AUTO) 90.8 % (43.0-81.0); PLATELET COUNT (AUTO) 308 K/uL (150-450); RED BLOOD CELL COUNT(AUTO) 3.45 MIL/uL (4.0-5.2); WHITE BLOOD COUNT (AUTO) 9.9 K/uL (4.3-11.0)
[2021-10-28 09:26] LABS: ABG BASE EXCESS -9.1 mmol/L; ABG PCO2 18.3 mmHg (35.0-45.0); ABG PH 7.455 (7.350-7.450); ABG PO2 70.8 mmHg (75.0-100.0); AaDO2 121.6 mmHg; COHb 0.3 % (0.5-1.5); MetHb 0.2 % (0.0-1.5); O2Hb 93.5 % (94.0-97.0); SITE, ABG Right Radial; VENT MODE, BG N/C
[2021-10-28] MEDS ORDERED: Sodium Bicarbonate 150 MEQ in IV D5W 1,000 ML IV SCH (09:30)
[2021-10-28] MEDS ORDERED: Sodium Bicarbonate 150 MEQ in IV D5W 1,000 ML IV PRN (09:30)
[2021-10-28 09:45] LABS: ALANINE AMINOTRANSFERASE 82 U/L (12-78); ALBUMIN 2.4 g/dL (3.4-5.0); ALKALINE PHOSPHATASE 89 U/L (46-116); ASPARTATE AMINOTRANSFERASE 100 U/L (15-37); BILIRUBIN,TOTAL 0.5 mg/dL (0.2-1.0); CALCIUM, SERUM 7.9 mg/dL (8.5-10.1); CARBON DIOXIDE 13 mmol/L (21-32); CHLORIDE 99 mmol/L (98-107); GLUCOSE 317 mg/dL (74-106); POTASSIUM 4.5 mmol/L (3.5-5.1); SODIUM SERUM 126 mmol/L (136-145); TOTAL PROTEIN, SERUM 6.2 g/dL (6.4-8.2); UREA NITROGEN, BLOOD 46 mg/dL (7-18)
[2021-10-28] MEDS ORDERED: VANCOMYCIN 1 GM in IV D5W 250ml IV ONE (10:30)
--- NOTE | 2021-10-28 10:50 | NUR ---
RN NOTES DR JOHNSON AT THE BEDSIDE. NEW ORDER RECEIVED .
--- NOTE | 2021-10-28 11:00 | NUR ---
RN NOTES TELEPHONE CONSENT TO CT OBTAINED FROM PT'S .
[2021-10-28] MEDS ORDERED: IOHEXOL-350 100 ML VIAL IV ONE (11:39)
[2021-10-28] MEDS ORDERED: CT SWABBABLE VALVE TRANS SET 1 EA INFUS.SET MC ONE (11:39)
[2021-10-28] MEDS ORDERED: IV NS 0.9% 250 ML IV ONE (11:40)
--- NOTE | 2021-10-28 14:00 | NUR ---
RN NOTES FAMILY REQUESTING TO TALK TO PRIMARY CARE , DR JOHNSON NOTIFIED .
[2021-10-28] MEDS ORDERED: METOPROLOL TARTRATE 50 MG TABLET PO ONE (15:00)
[2021-10-28] MEDS ORDERED: IV NS 0.9% 500 ML IV ONE (15:00)
--- NOTE | 2021-10-28 15:50 | NUR ---
RN NOTES HR IN 130-140'S, PT TACHYPNEIC , DR JOHNSON NOTIFED , NEW ORDERS RECEIVED , CONTINUE TO MONITOR.
[2021-10-28] MEDS: GABAPENTIN 100 MG CAPSULE PO SCH (17:23)
--- NOTE | 2021-10-28 17:33 | NUR ---
RN NOTES HR IN 90'S , PT TACHYPNEIC , O2 SAT WNL, PT FOLLOWS SIMPLE COMMAND, RESPONDS TO VERBAL STIMULI . CONTINUE TO MONITOR
--- NOTE | 2021-10-28 18:37 | NUR ---
RN NOTES PT ON BICARB DRIP, HR IN 90'S , TACHYPNEIC , AWARE, O2 SAT WNL, PT RESPONDS TO TOUCH , SLEEPING AT THIS TIME, REFUSED TO EAT, WILL ENDORSE TO MANAGER APPOINTMENT NURSE FOR CONTINUITY OF CARE .
[2021-10-28] MEDS: INSULIN GLARGINE, 100 UNIT/ML CARTRIDGE SQ SCH (21:34)
[2021-10-28] MEDS: ATORVASTATIN 10 MG TABLET PO SCH (21:34)
[2021-10-28] MEDS: CEFTRIAXONE 1 G in IV D5W 50 ML IV SCH (21:34)
[2021-10-28] MEDS: *INSULIN REGULAR(HUMULIN R)HUM 100 UNIT/ML VIAL SQ PRN (21:38)
[2021-10-28] MEDS ORDERED: Sodium Bicarbonate 100 MEQ in IV NS 0.9% 1,000 ML IV PRN (23:00)
[2021-10-28] MEDS ORDERED: SODIUM BICARBONATE SYR 50 MEQ/50 ML DISP.SYRIN ONE (23:13)
[2021-10-29] VITALS (71 sets, daily range): BP systolic 85–123; BP diastolic 36–82
--- NOTE | 2021-10-29 04:00 | NUR ---
ICU/RN: PT NOTED WITH ELEVATED HEART RATE 130-140 TWELVE LEAD EKG OBTAINED. RESULTS RELAYED TO ROJAS LORA NEW ORDERS FOR AMIODARONE GTT WITH BOLUS. RECEIVED AND CARRIED OUT.
[2021-10-29 04:24] LABS: BASOPHILS % (AUTO) 0.2 % (0.0-2.0); EOSINOPHILS % (AUTO) 0.2 % (0.0-6.0); HEMATOCRIT 32 % (33-45); HEMOGLOBIN 11.1 g/dL (11.5-14.8); LYMPHOCYTES # (AUTO) 0.9 K/uL (0.8-4.8); LYMPHOCYTES % (AUTO) 12.1 % (20.0-44.0); MEAN CORPUSCULAR HGB CONC 35 g/dl (31.0-36.0); MEAN CORPUSCULAR VOLUME 95 fL (82-100); MONOCYTES # (AUTO) 0.2 K/uL (0.1-1.30); NEUTROPHILS # (AUTO) 6.3 K/uL (1.8-8.9); NEUTROPHILS % (AUTO) 85.5 % (43.0-81.0); PLATELET COUNT (AUTO) 209 K/uL (150-450); RED BLOOD CELL COUNT(AUTO) 3.35 MIL/uL (4.0-5.2); WHITE BLOOD COUNT (AUTO) 7.4 K/uL (4.3-11.0)
[2021-10-29] MEDS ORDERED: AMIODARONE 150 MG in IV D5W 100 ML IV ONE (04:30)
[2021-10-29] MEDS ORDERED: AMIODARONE 150 MG/3 ML VIAL IV ONE ×2 (04:35→04:38)
[2021-10-29 04:56] LABS: ALANINE AMINOTRANSFERASE 78 U/L (12-78); ALBUMIN 2.1 g/dL (3.4-5.0); ALKALINE PHOSPHATASE 73 U/L (46-116); ASPARTATE AMINOTRANSFERASE 83 U/L (15-37); BILIRUBIN,TOTAL 0.4 mg/dL (0.2-1.0); CALCIUM, SERUM 7.7 mg/dL (8.5-10.1); CARBON DIOXIDE 22 mmol/L (21-32); CHLORIDE 100 mmol/L (98-107); CREATININE 2.3 mg/dL (0.6-1.3); GLUCOSE 107 mg/dL (74-106); PHOSPHORUS 2.2 mg/dL (2.5-4.9); POTASSIUM 3.5 mmol/L (3.5-5.1); SODIUM SERUM 131 mmol/L (136-145); TOTAL PROTEIN, SERUM 5.8 g/dL (6.4-8.2); UREA NITROGEN, BLOOD 48 mg/dL (7-18)
--- NOTE | 2021-10-29 05:00 | NUR ---
ICU/RN: ROJAS MANRIQUEZ ACNP ON THE FLOOR MAKING ROUNDS CRITICAL LABS RELAYED TO HER. LACTIC 2.72 AND TROP 3144 NO NEW ORDERS.
[2021-10-29] MEDS: AMIODARONE 450 MG in IV D5W 241 ML IV PRN ×2 (05:04→13:13)
[2021-10-29] MEDS ORDERED: Sodium Bicarbonate 100 MEQ in IV NS 0.9% 1,000 ML IV SCH ×2 (07:27→13:00)
--- NOTE | 2021-10-29 07:30 | NUR ---
ICU/RN PT IS VERY WEAK ,LETHARGIC,REACTIVE ON PAIN STIMULATION.ON 3L N/C SAT O2-96%.ON AMIODARONE DRIP.HR-SINUS ARRHYTHMIA. 80-100 BPM.AFEBRILE.NO PAIN REPORTED AT THIS TIME.ON BICARB DRIP.F/C IN PLACE DRAINING WITH CLOUDY YELLOW URINE.LABS REVIEW. NOTIFIED.
[2021-10-29 07:52] LABS: BILIRUBIN,DIRECT 0.1 mg/dL (0.0-0.2)
[2021-10-29] MEDS: ASPIRIN 81 MG TAB.CHEW PO SCH (08:12)
[2021-10-29] MEDS: ASCORBIC ACID 500 MG TABLET PO SCH ×2 (08:12→17:17)
[2021-10-29] MEDS: HYDROXYUREA 500 MG CAPSULE PO SCH (08:12)
[2021-10-29] MEDS: PANTOPRAZOLE 40 MG TABLET.DR PO SCH (08:12)
[2021-10-29] MEDS: LEVOTHYROXINE SODIUM 25 MCG TABLET PO SCH (08:13)
[2021-10-29] MEDS: LEVETIRACETAM (250 MG) 250 MG TABLET PO SCH ×2 (08:13→17:18)
[2021-10-29] MEDS: BLOOD SUGAR DIAGNOSTIC 1 EACH STRIP IN SCH ×4 (08:13→22:04)
[2021-10-29 08:24] LABS: ABG BASE EXCESS -1.1 mmol/L; ABG OXYGEN SATURATION 91.2 % (92.0-98.5); ABG PCO2 22.8 mmHg (35.0-45.0); ABG PH 7.556 (7.350-7.450); ABG PO2 56.1 mmHg (75.0-100.0); AaDO2 116.6 mmHg; MetHb 0.3 % (0.0-1.5); O2Hb 90.9 % (94.0-97.0); SITE, ABG Left Radial; VENT MODE, BG 2LPM NC
--- NOTE | 2021-10-29 09:00 | NUR ---
ICU/RN ABG DONE.MD NOTIFIED.BICARB DRIP STOP.
[2021-10-29] MEDS: POTASSIUM CL. PREMIX PERIPHER. 50 ML IV SCH ×4 (09:20→12:14)
[2021-10-29] MEDS ORDERED: VANCOMYCIN HCL 0.75 GM in IV D5W 250 ML IV SCH (10:00)
[2021-10-29] MEDS: ENOXAPARIN SODIUM 60 MG/0.6 ML DISP.SYRIN SQ SCH (11:35)
[2021-10-29] MEDS: INSULIN REGULAR, HUMAN 100 UNIT/ML 3 ML VIAL SQ PRN ×2 (11:45→17:19)
[2021-10-29] MEDS ORDERED: K PHOS NEUTRAL 250 MG TABLET PO ONE (16:00)
[2021-10-29] MEDS: GABAPENTIN 100 MG CAPSULE PO SCH (17:17)
[2021-10-29] MEDS: GLUCERNA SHAKE 237 ML CAN PO SCH (17:18)
--- NOTE | 2021-10-29 21:30 | NUR ---
ICU/RN: PER GLASS LOADING EQUIPMENT TENDER PT CONVERTED TO SINUS RHYTHM.
[2021-10-29] MEDS: INSULIN GLARGINE, 100 UNIT/ML CARTRIDGE SQ SCH (22:00)
[2021-10-29] MEDS: CEFTRIAXONE 1 G in IV D5W 50 ML IV SCH (22:04)
[2021-10-29] MEDS: ATORVASTATIN 10 MG TABLET PO SCH (22:04)
[2021-10-29] MEDS: *INSULIN REGULAR(HUMULIN R)HUM 100 UNIT/ML VIAL SQ PRN (22:10)
[2021-10-29 23:30] LABS: BILIRUBIN,URINE NEGATIVE (NEGATIVE); COLOR,URINE YELLOW (YELLOW); LEUKOCYTE ESTERASE ,URINE NEGATIVE (NEGATIVE); NITRITE, URINE NEGATIVE (NEGATIVE); PH,URINE 5.5 (5.0-8.0); PROTEIN,URINE 30 mg/dl (NEGATIVE); UGLUCOSE NEGATIVE (NEGATIVE); UROBILINOGEN,URINE 0.2 EU/dL (0.2)
[2021-10-29 23:42] LABS: CREATININE, URINE 99.4 MG/DL (30.0-125.0)
[2021-10-29 23:45] LABS: BACTERIA,URINE Rare /HPF (None Seen); HYALINE CASTS, URINE Rare /LPF (None Seen); SQUAMOUS EPITHELIAL CELL,UR Few /HPF (None Seen)
[2021-10-30] VITALS (67 sets, daily range): BP systolic 83–158; BP diastolic 38–85
[2021-10-30] MEDS ORDERED: CEFEPIME 1 GM in IV D5W 50 ML IV SCH ×2
[2021-10-30] MEDS ORDERED: CEFEPIME 1 GM VIAL ONE (00:38)
--- NOTE | 2021-10-30 03:00 | NUR ---
ICU/RN: PER ROJAS MANRIQUEZ ACNP DC AMIODARONE DRIP AND SWITCH AMIODARONE 200MG PO DAILY.
[2021-10-30 04:35] LABS: BASOPHILS % (AUTO) 0.4 % (0.0-2.0); EOSINOPHILS % (AUTO) 2.7 % (0.0-6.0); HEMATOCRIT 30 % (33-45); HEMOGLOBIN 10.3 g/dL (11.5-14.8); LYMPHOCYTES % (AUTO) 12.1 % (20.0-44.0); MEAN CORPUSCULAR HGB CONC 35 g/dl (31.0-36.0); MEAN CORPUSCULAR VOLUME 96 fL (82-100); MONOCYTES # (AUTO) 0.1 K/uL (0.1-1.30); MONOCYTES % (AUTO) 1.7 % (2.0-12.0); NEUTROPHILS % (AUTO) 83.1 % (43.0-81.0); PLATELET COUNT (AUTO) 190 K/uL (150-450); RED BLOOD CELL COUNT(AUTO) 3.12 MIL/uL (4.0-5.2); WHITE BLOOD COUNT (AUTO) 8.4 K/uL (4.3-11.0)
[2021-10-30 04:54] LABS: CALCIUM, SERUM 7.7 mg/dL (8.5-10.1); CARBON DIOXIDE 21 mmol/L (21-32); CHLORIDE 98 mmol/L (98-107); CREATININE 2.6 mg/dL (0.6-1.3); GLUCOSE 268 mg/dL (74-106); MAGNESIUM 2.2 mg/dL (1.8-2.4); PHOSPHORUS 3.5 mg/dL (2.5-4.9); SODIUM SERUM 130 mmol/L (136-145); UREA NITROGEN, BLOOD 58 mg/dL (7-18)
--- NOTE | 2021-10-30 07:30 | NUR ---
OPENING NOTE: REPORT RECEIVED FROM JAREN ELISE. ORDERS AND LABS REVIEWED DURING REPORT. PT CHECKED ON HOURLY AND PRN BY NURSING STAFF.
[2021-10-30 08:05] LABS: ABG BASE EXCESS -2.8 mmol/L; ABG OXYGEN SATURATION 94.7 % (92.0-98.5); ABG PH 7.512 (7.350-7.450); ABG PO2 70.9 mmHg (75.0-100.0); AaDO2 100.4 mmHg; COHb 0.3 % (0.5-1.5); MetHb 0.3 % (0.0-1.5); O2Hb 94.1 % (94.0-97.0); SITE, ABG Right Brachial; VENT MODE, BG nasal cannula
[2021-10-30] MEDS: AMIODARONE HCL 200 MG TABLET PO SCH (08:43)
[2021-10-30] MEDS: LEVETIRACETAM (250 MG) 250 MG TABLET PO SCH ×2 (08:44→17:31)
[2021-10-30] MEDS: ASPIRIN 81 MG TAB.CHEW PO SCH (08:44)
[2021-10-30] MEDS: LEVOTHYROXINE SODIUM 25 MCG TABLET PO SCH (08:44)
[2021-10-30] MEDS: HYDROXYUREA 500 MG CAPSULE PO SCH (08:44)
[2021-10-30] MEDS: PANTOPRAZOLE 40 MG TABLET.DR PO SCH (08:44)
[2021-10-30] MEDS: ASCORBIC ACID 500 MG TABLET PO SCH ×2 (08:44→17:31)
[2021-10-30] MEDS: BLOOD SUGAR DIAGNOSTIC 1 EACH STRIP IN SCH ×4 (08:44→22:13)
[2021-10-30] MEDS: INSULIN REGULAR, HUMAN 100 UNIT/ML 3 ML VIAL SQ PRN ×3 (08:46→17:30)
[2021-10-30] MEDS: GLUCERNA SHAKE 237 ML CAN PO SCH ×2 (08:48→17:32)
[2021-10-30] MEDS: ENOXAPARIN SODIUM 60 MG/0.6 ML DISP.SYRIN SQ SCH (14:11)
[2021-10-30] MEDS: GABAPENTIN 100 MG CAPSULE PO SCH (17:31)
[2021-10-30] MEDS: IV NS 0.9% 250 ML IV PRN (17:51)
[2021-10-30] MEDS: INSULIN GLARGINE, 100 UNIT/ML CARTRIDGE SQ SCH (22:00)
[2021-10-30] MEDS ORDERED: VANCOMYCIN HCL 0.75 GM in IV D5W 250 ML IV SCH (22:00)
[2021-10-30] MEDS: ATORVASTATIN 10 MG TABLET PO SCH (22:14)
[2021-10-30] MEDS: *INSULIN REGULAR(HUMULIN R)HUM 100 UNIT/ML VIAL SQ PRN (22:18)
[2021-10-30] MEDS: CEFEPIME 1 GM in IV D5W 50 ML IV SCH (23:11)
[2021-10-31] VITALS (16 sets, daily range): BP systolic 84–120; BP diastolic 44–82
[2021-10-31 05:29] LABS: BASOPHILS % (AUTO) 0.1 % (0.0-2.0); EOSINOPHILS % (AUTO) 1.6 % (0.0-6.0); HEMATOCRIT 31 % (33-45); HEMOGLOBIN 10.3 g/dL (11.5-14.8); LYMPHOCYTES # (AUTO) 0.4 K/uL (0.8-4.8); LYMPHOCYTES % (AUTO) 4.7 % (20.0-44.0); MEAN CORPUSCULAR HGB CONC 34 g/dl (31.0-36.0); MEAN CORPUSCULAR VOLUME 98 fL (82-100); MONOCYTES # (AUTO) 0.1 K/uL (0.1-1.30); MONOCYTES % (AUTO) 1.5 % (2.0-12.0); NEUTROPHILS # (AUTO) 8.4 K/uL (1.8-8.9); NEUTROPHILS % (AUTO) 92.1 % (43.0-81.0); PLATELET COUNT (AUTO) 194 K/uL (150-450); RED BLOOD CELL COUNT(AUTO) 3.13 MIL/uL (4.0-5.2); WHITE BLOOD COUNT (AUTO) 9.1 K/uL (4.3-11.0)
[2021-10-31 06:03] LABS: CALCIUM, SERUM 7.9 mg/dL (8.5-10.1); CARBON DIOXIDE 21 mmol/L (21-32); CHLORIDE 99 mmol/L (98-107); CREATININE 3.2 mg/dL (0.6-1.3); GLUCOSE 202 mg/dL (74-106); MAGNESIUM 2.2 mg/dL (1.8-2.4); PHOSPHORUS 3.5 mg/dL (2.5-4.9); POTASSIUM 4.1 mmol/L (3.5-5.1); SODIUM SERUM 132 mmol/L (136-145); UREA NITROGEN, BLOOD 66 mg/dL (7-18)
[2021-10-31] MEDS: BLOOD SUGAR DIAGNOSTIC 1 EACH STRIP IN SCH ×4 (07:52→21:00)
[2021-10-31] MEDS: LEVOTHYROXINE SODIUM 25 MCG TABLET PO SCH (07:52)
[2021-10-31] MEDS: ASCORBIC ACID 500 MG TABLET PO SCH ×2 (08:02→16:59)
[2021-10-31] MEDS: ASPIRIN 81 MG TAB.CHEW PO SCH (08:02)
[2021-10-31] MEDS: PANTOPRAZOLE 40 MG TABLET.DR PO SCH (08:02)
[2021-10-31] MEDS: LEVETIRACETAM (250 MG) 250 MG TABLET PO SCH ×2 (08:02→16:59)
[2021-10-31] MEDS: AMIODARONE HCL 200 MG TABLET PO SCH (08:02)
[2021-10-31] MEDS: HYDROXYUREA 500 MG CAPSULE PO SCH (08:03)
[2021-10-31] MEDS: GLUCERNA SHAKE 237 ML CAN PO SCH ×2 (08:04→16:59)
[2021-10-31 08:27] LABS: LYMPHOCYTES % (MANUAL) 7 % (16-48); NEUTROPHILS % (MANUAL) 89 (42-76)
[2021-10-31 08:28] LABS: BASOPHILS % (MANUAL) 0 % (0.0-2.0); EOSINOPHILS % (MANUAL) 1 % (0-4); MONOCYTES % (MANUAL) 3 % (0-11.0)
[2021-10-31] MEDS ORDERED: IV NS 0.9% 1,000 ML IV SCH (08:30)
--- NOTE | 2021-10-31 13:00 | NUR ---
director telemetry note received patient from icu , alert oriented with confusion, placed on tele monitor sr hr 88, on 2l nc, no so noted, tried to feed patient but refusing will cont to encourage to eat , rt fa hl intact and flushed well bed in lowest and locked position , call light within reach, will monitor Addendum: 10/31/21 at 1854 by ROSALINE NATION RN 1300 received patient from icu with lethargic but responds to tactily and verbal slimilyelton
[2021-10-31] MEDS: ENOXAPARIN SODIUM 60 MG/0.6 ML DISP.SYRIN SQ SCH (13:31)
[2021-10-31] MEDS: INSULIN REGULAR, HUMAN 100 UNIT/ML 3 ML VIAL SQ PRN ×2 (13:35→17:50)
--- NOTE | 2021-10-31 15:08 | NUR ---
teletype mechanic note turn reposition , kep clean dry, family at bedside
[2021-10-31] MEDS: TRULICITY 1.5 MG/0.5 ML SQ SCH (17:01)
[2021-10-31] MEDS: GABAPENTIN 100 MG CAPSULE PO SCH (17:54)
--- NOTE | 2021-10-31 17:58 | NUR ---
telesales representative note noted patent has difficulty swallow and wound on sacral arae , dr stacie Robison notified with order wound care consult ans swallow eval
--- NOTE | 2021-10-31 18:28 | NUR ---
teleprinter note patient in bed ,resting in bed lethargic but easily awake when taking to her ,on tele monitor st hr 104 with Rosenberg cath to gravity with yellow color urine, bed in lowest and locked position, turn reposition , on 2l nc of o2 ,no sob noted at this time call light within reach family at bedside
[2021-10-31] MEDS: ATORVASTATIN 10 MG TABLET PO SCH (20:58)
[2021-10-31] MEDS: INSULIN GLARGINE, 100 UNIT/ML CARTRIDGE SQ SCH (21:44)
[2021-10-31] MEDS: CEFEPIME 1 GM in IV D5W 50 ML IV SCH (22:00)
[2021-11-01] VITALS: BP 111/60
[2021-11-01 04:00] VITALS: BP 117/63
[2021-11-01 07:02] LABS: BASOPHILS % (AUTO) 0.1 % (0.0-2.0); EOSINOPHILS % (AUTO) 2.4 % (0.0-6.0); HEMATOCRIT 33 % (33-45); HEMOGLOBIN 11.1 g/dL (11.5-14.8); LYMPHOCYTES # (AUTO) 0.4 K/uL (0.8-4.8); LYMPHOCYTES % (AUTO) 3.2 % (20.0-44.0); MEAN CORPUSCULAR HGB CONC 33 g/dl (31.0-36.0); MEAN CORPUSCULAR VOLUME 97 fL (82-100); MONOCYTES # (AUTO) 0.2 K/uL (0.1-1.30); MONOCYTES % (AUTO) 1.7 % (2.0-12.0); NEUTROPHILS # (AUTO) 10.6 K/uL (1.8-8.9); NEUTROPHILS % (AUTO) 92.6 % (43.0-81.0); PLATELET COUNT (AUTO) 209 K/uL (150-450); RED BLOOD CELL COUNT(AUTO) 3.42 MIL/uL (4.0-5.2); WHITE BLOOD COUNT (AUTO) 11.4 K/uL (4.3-11.0)
[2021-11-01 07:22] LABS: CALCIUM, SERUM 8.3 mg/dL (8.5-10.1); CARBON DIOXIDE 20 mmol/L (21-32); CHLORIDE 103 mmol/L (98-107); CREATININE 3.5 mg/dL (0.6-1.3); GLUCOSE 248 mg/dL (74-106); MAGNESIUM 2.4 mg/dL (1.8-2.4); PHOSPHORUS 4.5 mg/dL (2.5-4.9); POTASSIUM 4.7 mmol/L (3.5-5.1); SODIUM SERUM 137 mmol/L (136-145); UREA NITROGEN, BLOOD 73 mg/dL (7-18)
--- NOTE | 2021-11-01 07:30 | NUR ---
PT RECEIVED RESTING COMFORTABLY IN BED. NO S/S OR C/O PAIN OR DISTRESS NOTED. SIDE RAILS UP X2, CALL LIGHT LEFT WITHIN REACH. WILL CONTINUE PLAN OF CARE.
--- NOTE | 2021-11-01 07:31 | NUR ---
RN CLOSING NOTE PATIENT STABLE REPORT GIVEN TO DAY NURSE ALL QUESTIONS ANSWERED.
[2021-11-01 08:00] VITALS: BP 109/57
[2021-11-01 08:21] LABS: BAND % (MANUAL) 10 % (0.0-5.0); LYMPHOCYTES % (MANUAL) 10 % (16-48); METAMYELOCYTES % 1 % (0-0); MONOCYTES % (MANUAL) 2 % (0-11.0); MYELOCYTES % 1 % (0-0); NEUTROPHILS % (MANUAL) 76 (42-76)
[2021-11-01] MEDS: LEVETIRACETAM (250 MG) 250 MG TABLET PO SCH ×2 (09:09→17:41)
[2021-11-01] MEDS: ASPIRIN 81 MG TAB.CHEW PO SCH (09:09)
[2021-11-01] MEDS: HYDROXYUREA 500 MG CAPSULE PO SCH (09:10)
[2021-11-01] MEDS: ASCORBIC ACID 500 MG TABLET PO SCH ×2 (09:10→17:41)
[2021-11-01] MEDS: AMIODARONE HCL 200 MG TABLET PO SCH (09:10)
[2021-11-01] MEDS: LEVOTHYROXINE SODIUM 25 MCG TABLET PO SCH (09:10)
[2021-11-01] MEDS: PANTOPRAZOLE 40 MG TABLET.DR PO SCH (09:10)
[2021-11-01] MEDS: INSULIN REGULAR, HUMAN 100 UNIT/ML 3 ML VIAL SQ PRN ×4 (09:35→21:35)
[2021-11-01] MEDS: GLUCERNA SHAKE 237 ML CAN PO SCH ×2 (09:36→17:00)
[2021-11-01] MEDS: BLOOD SUGAR DIAGNOSTIC 1 EACH STRIP IN SCH ×4 (09:36→21:22)
[2021-11-01 12:00] VITALS: BP 96/48
[2021-11-01] MEDS: ENOXAPARIN SODIUM 60 MG/0.6 ML DISP.SYRIN SQ SCH (12:41)
[2021-11-01 16:00] VITALS: BP 122/70
--- NOTE | 2021-11-01 17:30 | NUR ---
CHANGE OF CONDITION PT PRESENTS WITH TACHYPNEA OF 40 & TACHYCARDIA OF 130. MD JOHNSON PAGED. ORDERS RECEIVED AND CARRIED OUT. - STAT CHEST XRAY - INCREASE LANTUS TO 20 - BREATHING TREATMENT - XANAX ORDERED - NT SUCTION WILL CONTINUE TO MONITOR.
[2021-11-01] MEDS: GABAPENTIN 100 MG CAPSULE PO SCH (17:41)
--- NOTE | 2021-11-01 19:27 | NUR ---
CHANGE OF SHIFT REPORT PT RESTING COMFORTABLY IN BED. NO S/S OR C/O PAIN OR DISTRESS NOTED. SIDE RAILS UP X2, CALL [facility] TLEFT WITHIN REACH. PT KEPT CLEAN, DRY, AND COMFORTABLE. NO SIGNIFICANT CHANGES SINCE PREVIOUS SHIFT. REPORT GIVEN TO KIN ELISE.
--- NOTE | 2021-11-01 19:38 | NUR ---
RN OPENING NOTE PATIENT AWAKE IN BED. A/OX1. NO S/S OF DISTRESS, BREATHING WW/O DIFFICULTY ON 4L NC. RFA #22, AND R-WRIST #22 INTACT AND PATENT. TELE MONITOR REVEALS ST100 (ENDORSED PATIENT'S BASELINE). SAFETY MEASURES IN PLACE: BED LOCKED AND AT LOWEST POSITION, RAILS UP X2, CALL PICHARDO WITHIN REACH. WILL CONTINUE TO MONITOR THE PATIENT.
[2021-11-01 20:00] VITALS: BP 117/52
[2021-11-01] MEDS ORDERED: IV NS 0.9% 500 ML BAG IV ONE (21:00)
[2021-11-01] MEDS: ATORVASTATIN 10 MG TABLET PO SCH (21:22)
[2021-11-01] MEDS: DOXYCYCLINE 100 MG in IV D5W 100 ML IV SCH (21:26)
[2021-11-01] MEDS: INSULIN GLARGINE, 100 UNIT/ML CARTRIDGE SQ SCH (21:35)
[2021-11-01] MEDS ORDERED: VANCOMYCIN HCL 0.75 GM in IV D5W 250 ML IV SCH (22:00)
[2021-11-01] MEDS ORDERED: BUMETANIDE INJ 0.25 MG/ML VIAL IV ONE (22:30)
--- NOTE | 2021-11-01 23:00 | NUR ---
RN NOTE PATIENT WAS FOUND TO HAVE HAD INFILTRATION IN THE RFA AND R-WRIST. IV ACCESS WAS REMOVED W/ BOTH ACCESS PORTS BEING INTACT - THE CATH OF EACH INTACT. NO ACTIVE BLEEDING; HOWEVER, PRESSURE DRESSINGS WERE APPLIED. NEW IV ACCESS SUCCESSFULLY ACQUIRED ON LFA W/ A 22G (#22). PATIENT STABLE; WILL CONTINUE TO MONITOR PATIENT.
[2021-11-01] MEDS: CEFEPIME 1 GM in IV D5W 50 ML IV SCH (23:04)
[2021-11-02] VITALS: BP 111/46
[2021-11-02 04:00] VITALS: BP 98/44
[2021-11-02 06:20] LABS: BASOPHILS % (AUTO) 0.1 % (0.0-2.0); EOSINOPHILS % (AUTO) 6.3 % (0.0-6.0); HEMATOCRIT 30 % (33-45); HEMOGLOBIN 10.2 g/dL (11.5-14.8); LYMPHOCYTES # (AUTO) 0.4 K/uL (0.8-4.8); LYMPHOCYTES % (AUTO) 4.6 % (20.0-44.0); MEAN CORPUSCULAR HGB CONC 34 g/dl (31.0-36.0); MEAN CORPUSCULAR VOLUME 97 fL (82-100); MONOCYTES # (AUTO) 0.1 K/uL (0.1-1.30); MONOCYTES % (AUTO) 1.5 % (2.0-12.0); NEUTROPHILS # (AUTO) 6.8 K/uL (1.8-8.9); NEUTROPHILS % (AUTO) 87.5 % (43.0-81.0); PLATELET COUNT (AUTO) 185 K/uL (150-450); RED BLOOD CELL COUNT(AUTO) 3.08 MIL/uL (4.0-5.2); WHITE BLOOD COUNT (AUTO) 7.8 K/uL (4.3-11.0)
[2021-11-02 06:33] LABS: CALCIUM, SERUM 8.6 mg/dL (8.5-10.1); CARBON DIOXIDE 21 mmol/L (21-32); CHLORIDE 107 mmol/L (98-107); CREATININE 3.7 mg/dL (0.6-1.3); GLUCOSE 95 mg/dL (74-106); MAGNESIUM 2.5 mg/dL (1.8-2.4); PHOSPHORUS 4.4 mg/dL (2.5-4.9); POTASSIUM 4.1 mmol/L (3.5-5.1); SODIUM SERUM 141 mmol/L (136-145)
[2021-11-02 06:38] LABS: UREA NITROGEN, BLOOD 80 mg/dL (7-18)
--- NOTE | 2021-11-02 06:53 | NUR ---
RN CLOSING NOTE PATIENT ASLEEP IN BED. A/OX1. NO S/S OF DISTRESS, BREATHING W/O DIFFICULTY ON 4L NC. LFA #22 INTACT AND PATENT. TELE MONITOR REVEALS SR87. SAFETY MEASURES IN PLACE: BED LOCKED & AT LOWEST POSITION, RAILS UP X2, CALL PICHARDO WITHIN REACH. WILL ENDORSE TO NEXT SHIFT FOR RADHA. CRITICAL LAB WAS NOTIFIED TO THIS RN (ASHLEY FROM LAB). BUN/CYBER SECURITY MANAGER 80/3.7 - HAVING TRENDED UP FROM PREVIOUS. ON-CALL MD, ROJAS MANRIQUEZ, NOTIFIED. NO NEW ORDERS.
[2021-11-02] MEDS: BLOOD SUGAR DIAGNOSTIC 1 EACH STRIP IN SCH ×4 (07:30→22:30)
--- NOTE | 2021-11-02 07:40 | NUR ---
RN OPENING NOTE PATIENT AWAKE IN BED. A/OX1. NO S/S OF DISTRESS, BREATHING WW/O DIFFICULTY ON 4L NC. LFA #22. PATIENT IS ON NASAL CANULA 4 LITER. PATIENT IS NOT DISTRESSED. TELE MONITOR REVEALS SR 84. SAFETY MEASURES IN PLACE: BED LOCKED AND AT LOWEST POSITION, RAILS UP X2, CALL PICHARDO WITHIN REACH. WILL CONTINUE TO MONITOR THE PATIENT.
[2021-11-02 08:00] VITALS: BP 111/47
[2021-11-02] MEDS: HYDROXYUREA 500 MG CAPSULE PO SCH (08:35)
[2021-11-02] MEDS: PANTOPRAZOLE 40 MG TABLET.DR PO SCH (08:35)
[2021-11-02] MEDS: LEVETIRACETAM (250 MG) 250 MG TABLET PO SCH ×2 (08:35→16:49)
[2021-11-02] MEDS: ASPIRIN 81 MG TAB.CHEW PO SCH (08:35)
[2021-11-02] MEDS: ASCORBIC ACID 500 MG TABLET PO SCH ×2 (08:35→16:49)
[2021-11-02] MEDS: LEVOTHYROXINE SODIUM 25 MCG TABLET PO SCH (08:36)
[2021-11-02] MEDS: AMIODARONE HCL 200 MG TABLET PO SCH (08:36)
[2021-11-02] MEDS: GLUCERNA SHAKE 237 ML CAN PO SCH ×2 (08:54→17:29)
[2021-11-02] MEDS: HEPARIN SODIUM, PORCINE 5000 UNITS/1 ML VIAL SQ SCH ×2 (09:07→21:44)
[2021-11-02] MEDS: DOXYCYCLINE 100 MG in IV D5W 100 ML IV SCH ×2 (09:08→21:42)
[2021-11-02 12:00] VITALS: BP 103/45
[2021-11-02] MEDS: INSULIN REGULAR, HUMAN 100 UNIT/ML 3 ML VIAL SQ PRN ×2 (12:40→17:04)
[2021-11-02 16:00] VITALS: BP 109/48
[2021-11-02] MEDS: GABAPENTIN 100 MG CAPSULE PO SCH (17:00)
--- NOTE | 2021-11-02 18:20 | NUR ---
RN CLOSING NOTE PATIENT ASLEEP IN BED. A/OX2. NO S/S OF DISTRESS, BREATHING W/O DIFFICULTY ON 4L NC. LFA #22 INTACT AND PATENT. TELE MONITOR REVEALS SR94. SAFETY MEASURES IN PLACE: BED LOCKED & AT LOWEST POSITION, RAILS UP X3, CALL PICHARDO WITHIN REACH. WILL ENDORSE TO NEXT SHIFT FOR RADHA. BUN/GENERAL MANAGER ORACLE DATA CLOUD 80/3.7 - SAME PREVIOUS SHIFT TRENDED UP. NEPHRO MAY NEED HD IF KIDNEY FXN WORSENS
--- NOTE | 2021-11-02 18:46 | NUR ---
REDNESS ON RIGHT FOOT, PHOTO WAS TAKEN REFERED TO WOUND NURSE NO NEW ORDER FOR NOW BUT CONTINUE TO MONITOR. THE PHOTO IS IN THE CHART WITH TODAYS DATE 11/02/2021.
--- NOTE | 2021-11-02 19:30 | NUR ---
REGRINDER OPENING NOTE RECEIVED PATIENT IN BED, ASLEEP. NO S/SX OF ACUTE DISTRESS NOTED AT THIS TIME. CURRENTLY ON 4L VIA NC, TOLERATING WELL. TELE MONITOE SHOWS SR WITH HR IN 70S. IV ACCESS IN LFA #22., PATENT AND INTACT. ALL SAFETY MEASURES IN PLACE: BED LOCKED IN LOWEST POSITION, SIDE RAILS UP X2, CALL PICHARDO WITHIN REACH. WILL CONTINUE TO MONITOR THE PATIENT.
[2021-11-02 20:00] VITALS: BP 131/52
[2021-11-02] MEDS: ATORVASTATIN 10 MG TABLET PO SCH (21:42)
[2021-11-02] MEDS: *INSULIN REGULAR(HUMULIN R)HUM 100 UNIT/ML VIAL SQ PRN (22:41)
[2021-11-02] MEDS: INSULIN GLARGINE, 100 UNIT/ML CARTRIDGE SQ SCH (22:43)
[2021-11-02] MEDS: CEFEPIME 1 GM in IV D5W 50 ML IV SCH (22:49)
[2021-11-03] VITALS: BP 109/45
[2021-11-03 04:00] VITALS: BP 105/48
--- NOTE | 2021-11-03 06:23 | NUR ---
FENCE MAKER CLOSING NOTE NO SIGNIFICANT CHANGE THROUGHOUT THE SHIFT. ALL VS STABLE. DUE MEDS GIVEN. NEEDS ATTENDED TO. ALL SAFETY MEASURES IN PLACE. WILL ENDORSE TO AM SHIFT NURSE FOR RADHA.
[2021-11-03 07:11] LABS: BASOPHILS % (AUTO) 0.2 % (0.0-2.0); HEMATOCRIT 27 % (33-45); HEMOGLOBIN 9.2 g/dL (11.5-14.8); LYMPHOCYTES # (AUTO) 0.4 K/uL (0.8-4.8); LYMPHOCYTES % (AUTO) 6.2 % (20.0-44.0); MEAN CORPUSCULAR HGB CONC 34 g/dl (31.0-36.0); MEAN CORPUSCULAR VOLUME 97 fL (82-100); MONOCYTES # (AUTO) 0.1 K/uL (0.1-1.30); NEUTROPHILS # (AUTO) 5.2 K/uL (1.8-8.9); NEUTROPHILS % (AUTO) 80.6 % (43.0-81.0); PLATELET COUNT (AUTO) 174 K/uL (150-450); RED BLOOD CELL COUNT(AUTO) 2.83 MIL/uL (4.0-5.2); WHITE BLOOD COUNT (AUTO) 6.5 K/uL (4.3-11.0)
--- NOTE | 2021-11-03 07:15 | NUR ---
RN OPENING NOTES: PATIENT AWAKE AND ALERT A&OX2-3. ALL VSS. PATIENT SATTING AT 96% ON 3.5 L NC. DIET CCHO CRUSHED MEDS. IV LFA #22G PATENT, INTACT AND FLUSHED WITH NS.. ALL SAFETY FALL PRECAUTIONS IN PLACE BED LOCK ON, BED IN LOWEST POSITION, SIDE RAILS UP, BED ALARM ON, CALL LIGHT WITHIN REACH. WILL CONTINUE TO MONITOR.
[2021-11-03 07:20] LABS: CALCIUM, SERUM 8.4 mg/dL (8.5-10.1); CARBON DIOXIDE 19 mmol/L (21-32); CHLORIDE 107 mmol/L (98-107); GLUCOSE 119 mg/dL (74-106); MAGNESIUM 2.2 mg/dL (1.8-2.4); PHOSPHORUS 4.6 mg/dL (2.5-4.9); POTASSIUM 3.9 mmol/L (3.5-5.1); SODIUM SERUM 138 mmol/L (136-145)
[2021-11-03 07:25] LABS: UREA NITROGEN, BLOOD 82 mg/dL (7-18)
[2021-11-03] MEDS: BLOOD SUGAR DIAGNOSTIC 1 EACH STRIP IN SCH ×4 (07:30→21:57)
[2021-11-03 08:00] VITALS: BP 110/52
[2021-11-03] MEDS: DOXYCYCLINE 100 MG in IV D5W 100 ML IV SCH ×2 (08:28→20:14)
[2021-11-03] MEDS: AMIODARONE HCL 200 MG TABLET PO SCH (08:29)
[2021-11-03] MEDS: ASPIRIN 81 MG TAB.CHEW PO SCH (08:29)
[2021-11-03] MEDS: PANTOPRAZOLE 40 MG TABLET.DR PO SCH (08:30)
[2021-11-03] MEDS: ASCORBIC ACID 500 MG TABLET PO SCH ×2 (08:31→17:31)
[2021-11-03] MEDS: LEVETIRACETAM (250 MG) 250 MG TABLET PO SCH ×2 (08:31→17:31)
[2021-11-03] MEDS: HEPARIN SODIUM, PORCINE 5000 UNITS/1 ML VIAL SQ SCH ×2 (08:32→21:59)
[2021-11-03] MEDS: HYDROXYUREA 500 MG CAPSULE PO SCH (08:32)
[2021-11-03] MEDS: GLUCERNA SHAKE 237 ML CAN PO SCH ×2 (08:33→17:32)
[2021-11-03] MEDS: LEVOTHYROXINE SODIUM 25 MCG TABLET PO SCH (08:36)
[2021-11-03] MEDS: IV NS 0.9% 1,000 ML IV PRN ×2 (09:47→18:39)
[2021-11-03] MEDS: *INSULIN REGULAR(HUMULIN R)HUM 100 UNIT/ML VIAL SQ PRN ×2 (11:53→22:13)
[2021-11-03 12:00] VITALS: BP 109/56
[2021-11-03 16:00] VITALS: BP 128/59
[2021-11-03] MEDS: GABAPENTIN 100 MG CAPSULE PO SCH (17:31)
--- NOTE | 2021-11-03 18:47 | NUR ---
RN closing NOTES: PATIENT AWAKE AND ALERT A&OX2-3. ALL VSS. PATIENT SATTING AT 96% ON 4 L NC. DIET CCHO CRUSHED MEDS. IV LFA #22G PATENT, INTACT AND FLUSHED WITH NS. PATIENT IS RUNNING NS 0.9% @ 125MLS/HR. ALL SAFETY FALL PRECAUTIONS IN PLACE BED LOCK ON, BED IN LOWEST POSITION, SIDE RAILS UP, BED ALARM ON, CALL LIGHT WITHIN REACH. PATIENT HAS NO SIGNS OF DISTRESS. ALL CARE ENDORSED TO AUTOMOTIVE REPAIR TECHNICIAN NURSE.
--- NOTE | 2021-11-03 19:40 | NUR ---
RN OPENING NOTE RECEIVED PATIENT SLEEPING IN BED. ALERT AND ORIENTED X 1. NO S/SX OF PAIN NOTED AT THIS TIME. CONTINUES ON O2 4L VIA NC WITH NO S/SX OF RESPIRATORY DISTRESS NOTED. IV ACCESS TO LEFT FOREARM #22G INTACT AND PATENT. CONTINUES ON IVF NS @ 125ML/HR. CONTINUES ON IV ABX. GUSTAFSON CATHETER IN PLACE DRAINING CLEAR, YELLOW URINE TO GRAVITY. CALL LIGHT WITHIN REACH. ASPIRATION, FALL AND SAFETY PRECAUTIONS MAINTAINED. ALL NEEDS ATTENDED TO AT THIS TIME.
[2021-11-03 20:00] VITALS: BP 125/57
[2021-11-03] MEDS: ATORVASTATIN 10 MG TABLET PO SCH (21:58)
[2021-11-03] MEDS: INSULIN GLARGINE, 100 UNIT/ML CARTRIDGE SQ SCH (22:12)
[2021-11-03] MEDS: CEFEPIME 1 GM in IV D5W 50 ML IV SCH (23:28)
[2021-11-04] VITALS: BP 125/57
[2021-11-04 04:00] VITALS: BP 125/57
[2021-11-04] MEDS: IV NS 0.9% 250 ML IV PRN (06:08)
[2021-11-04 06:29] LABS: BASOPHILS % (AUTO) 0.3 % (0.0-2.0); EOSINOPHILS % (AUTO) 10.3 % (0.0-6.0); HEMATOCRIT 29 % (33-45); HEMOGLOBIN 9.6 g/dL (11.5-14.8); LYMPHOCYTES # (AUTO) 0.6 K/uL (0.8-4.8); LYMPHOCYTES % (AUTO) 9.2 % (20.0-44.0); MEAN CORPUSCULAR HGB CONC 33 g/dl (31.0-36.0); MEAN CORPUSCULAR VOLUME 98 fL (82-100); MONOCYTES # (AUTO) 0.2 K/uL (0.1-1.30); MONOCYTES % (AUTO) 2.4 % (2.0-12.0); NEUTROPHILS % (AUTO) 77.8 % (43.0-81.0); PLATELET COUNT (AUTO) 153 K/uL (150-450); RED BLOOD CELL COUNT(AUTO) 2.93 MIL/uL (4.0-5.2); WHITE BLOOD COUNT (AUTO) 6.4 K/uL (4.3-11.0)
--- NOTE | 2021-11-04 06:30 | NUR ---
MS/RN CLOSING NOTE PATIENT CURRENTLY SLEEPING IN BED. ALERT AND ORIENTED X 1. NO S/SX OF PAIN NOTED AT THIS TIME. CONTINUES ON O2 4L VIA NC WITH NO S/SX OF RESPIRATORY DISTRESS NOTED. IV ACCESS TO LEFT FOREARM #22G INTACT AND PATENT. COMPLETED IVF NS @ 125ML/HR X 2 LITERS. CONTINUES ON IV ABX. GUSTAFSON CATHETER IN PLACE DRAINING CLEAR, YELLOW URINE TO GRAVITY. TOTAL OUTPUT WAS 1300CC THIS SHIFT. CALL LIGHT WITHIN REACH. ASPIRATION, FALL AND SAFETY PRECAUTIONS MAINTAINED. WILL ENDORSE PLAN OF CARE TO ONCOMING SHIFT RN.
[2021-11-04 07:15] LABS: ALANINE AMINOTRANSFERASE 47 U/L (12-78); ALBUMIN 1.7 g/dL (3.4-5.0); ALKALINE PHOSPHATASE 112 U/L (46-116); ASPARTATE AMINOTRANSFERASE 41 U/L (15-37); BILIRUBIN,TOTAL 0.5 mg/dL (0.2-1.0); CALCIUM, SERUM 8.1 mg/dL (8.5-10.1); CARBON DIOXIDE 20 mmol/L (21-32); CHLORIDE 105 mmol/L (98-107); CREATININE 3.9 mg/dL (0.6-1.3); GLUCOSE 77 mg/dL (74-106); MAGNESIUM 2.3 mg/dL (1.8-2.4); PHOSPHORUS 4.7 mg/dL (2.5-4.9); POTASSIUM 3.9 mmol/L (3.5-5.1); SODIUM SERUM 137 mmol/L (136-145); TOTAL PROTEIN, SERUM 5.7 g/dL (6.4-8.2)
[2021-11-04] MEDS: BLOOD SUGAR DIAGNOSTIC 1 EACH STRIP IN SCH ×4 (07:30→21:07)
--- NOTE | 2021-11-04 07:30 | NUR ---
RN/ OPENING NOTE, PATIENT RESTING ON BED COMFORTABLE A&OX2-3. ALL VSS. SR. PUREE DIET CRUSHED MEDS. IV LFA #22 G PATENT AND INTACT. VOIDING VIA GUSTAFSON PATENT AND DRAINING BELOW THE BLADDER. ALL SAFETY PRECAUTIONS IN PLACE BED LOCK ON, BED IN LOWEST POSITION, BED ALARM ON, SIDE RAILS UP, CALL LIGHT WITHIN REACH. WILL CONTINUE TO MONITOR.
[2021-11-04 07:31] LABS: UREA NITROGEN, BLOOD 80 mg/dL (7-18)
[2021-11-04 08:00] VITALS: BP 118/41
[2021-11-04] MEDS: GLUCERNA SHAKE 237 ML CAN PO SCH ×2 (08:00→16:49)
[2021-11-04] MEDS: ASCORBIC ACID 500 MG TABLET PO SCH ×2 (08:40→17:24)
[2021-11-04] MEDS: PANTOPRAZOLE 40 MG TABLET.DR PO SCH (08:40)
[2021-11-04] MEDS: HYDROXYUREA 500 MG CAPSULE PO SCH (08:40)
[2021-11-04] MEDS: ASPIRIN 81 MG TAB.CHEW PO SCH (08:40)
[2021-11-04] MEDS: LEVETIRACETAM (250 MG) 250 MG TABLET PO SCH ×2 (08:40→17:24)
[2021-11-04] MEDS: LEVOTHYROXINE SODIUM 25 MCG TABLET PO SCH (08:41)
[2021-11-04] MEDS: HEPARIN SODIUM, PORCINE 5000 UNITS/1 ML VIAL SQ SCH ×2 (08:45→21:01)
[2021-11-04] MEDS: DOXYCYCLINE 100 MG in IV D5W 100 ML IV SCH (09:37)
[2021-11-04] MEDS: AMIODARONE HCL 200 MG TABLET PO SCH (09:45)
[2021-11-04] MEDS: *INSULIN REGULAR(HUMULIN R)HUM 100 UNIT/ML VIAL SQ PRN ×3 (12:17→21:10)
[2021-11-04] MEDS: GABAPENTIN 100 MG CAPSULE PO SCH (17:24)
--- NOTE | 2021-11-04 19:04 | NUR ---
RN/ CLOSING NOTE, PATIENT RESTING ON BED COMFORTABLE A&OX2-3. ALL VSS. SR. PUREE DIET CRUSHED MEDS. IV LFA #22 G PATENT AND INTACT. VOIDING VIA GUSTAFSON PATENT AND DRAINING BELOW THE BLADDER. ALL SAFETY PRECAUTIONS IN PLACE BED LOCK ON, BED IN LOWEST POSITION, BED ALARM ON, SIDE RAILS UP, CALL LIGHT WITHIN REACH. ALL VSS. PATIENT WAS CLEANED AND CHANGED. CARE ENDORSED TO USABILITY ENGINEER NURSE.
--- NOTE | 2021-11-04 19:15 | NUR ---
RN NOTE RECEIVED PATIENT IN BED, AO X 1, IN NO ACUTE DISTRESS AT THIS TIME, AT BEDSIDE. BREATHING EVEN AND UNLABORED, SATURATION AT 98% ON 4L VIA NC, HR IS 93. NOTED IV SITE AT LFA 22G, PATENT AND FLUSHING WELL, NO S/S OF INFECTION OR INFILTRATION. NO IV FLUID INFUSING, BUT NO ORDER TO DC NS AT 125 ML/HR. NOTED PER MD NOTE, CONT IV HYDRATION. GUSTAFSON CATH DRIAINING TO A CLEAR, YELLOW OUTPUT. SAFETY MEASURES IMPLEMENTED. PATIENT BED ALARM IS ON. HEAD OF BED ELEVATED. BED IS LOCKED, IN LOWEST POSITION AND SIDE RAILS UP. CALL LIGHT WITHIN REACH OF THE PATIENT. WILL CONTINUE TO MONITOR AND REASSESS FOR ANY CHANGES.
[2021-11-04 20:00] VITALS: BP 148/63
[2021-11-04] MEDS: IV NS 0.9% 1,000 ML IV PRN (20:13)
[2021-11-04] MEDS: ATORVASTATIN 10 MG TABLET PO SCH (21:01)
[2021-11-04] MEDS: INSULIN GLARGINE, 100 UNIT/ML CARTRIDGE SQ SCH (21:11)
[2021-11-04] MEDS ORDERED: IV NS 0.9% 1,000 ML IV ONE (22:30)
[2021-11-05] VITALS: BP 148/63
[2021-11-05 04:00] VITALS: BP 122/57
[2021-11-05] MEDS: IV NS 0.9% 1,000 ML IV PRN (06:49)
[2021-11-05 07:27] LABS: BASOPHILS % (AUTO) 0.3 % (0.0-2.0); EOSINOPHILS % (AUTO) 7.7 % (0.0-6.0); HEMATOCRIT 29 % (33-45); HEMOGLOBIN 9.5 g/dL (11.5-14.8); LYMPHOCYTES # (AUTO) 1.1 K/uL (0.8-4.8); LYMPHOCYTES % (AUTO) 14.6 % (20.0-44.0); MEAN CORPUSCULAR HGB CONC 33 g/dl (31.0-36.0); MEAN CORPUSCULAR VOLUME 98 fL (82-100); MONOCYTES # (AUTO) 0.1 K/uL (0.1-1.30); MONOCYTES % (AUTO) 1.9 % (2.0-12.0); NEUTROPHILS # (AUTO) 5.7 K/uL (1.8-8.9); NEUTROPHILS % (AUTO) 75.5 % (43.0-81.0); PLATELET COUNT (AUTO) 170 K/uL (150-450); RED BLOOD CELL COUNT(AUTO) 2.93 MIL/uL (4.0-5.2); WHITE BLOOD COUNT (AUTO) 7.5 K/uL (4.3-11.0)
--- NOTE | 2021-11-05 07:30 | NUR ---
RN MS NOTES PT IN BED, AWAKE, ALERT AND VERBALLY RESPONSIVE, NO COMPLAINT OF PAIN OR ANY DISCOMFORT AT THIS TIME, NO SOB, CALL LIGHT WITHIN REACH, F/C IN PLACE, DRAINING WELL WITH CLEAR, YELLOW URINE, KEPT WARM AND COMFORTABLE IN BED.
[2021-11-05 07:59] LABS: CALCIUM, SERUM 8.2 mg/dL (8.5-10.1); CARBON DIOXIDE 19 mmol/L (21-32); CHLORIDE 110 mmol/L (98-107); CREATININE 3.6 mg/dL (0.6-1.3); GLUCOSE 51 mg/dL (74-106); PHOSPHORUS 4.4 mg/dL (2.5-4.9); POTASSIUM 3.9 mmol/L (3.5-5.1); SODIUM SERUM 142 mmol/L (136-145); UREA NITROGEN, BLOOD 73 mg/dL (7-18)
[2021-11-05 08:00] VITALS: BP 118/47
[2021-11-05] MEDS: DEXTROSE 50%-WATER 50 ML DISP.SYRIN IV PRN ×3 (08:05→08:31)
[2021-11-05] MEDS: LEVOTHYROXINE SODIUM 25 MCG TABLET PO SCH (08:16)
[2021-11-05] MEDS: BLOOD SUGAR DIAGNOSTIC 1 EACH STRIP IN SCH ×4 (08:16→21:14)
[2021-11-05] MEDS: GLUCERNA SHAKE 237 ML CAN PO SCH ×2 (08:27→16:43)
[2021-11-05] MEDS: HYDROXYUREA 500 MG CAPSULE PO SCH (09:00)
[2021-11-05] MEDS: LEVETIRACETAM (250 MG) 250 MG TABLET PO SCH ×2 (09:09→16:50)
[2021-11-05] MEDS: PANTOPRAZOLE 40 MG TABLET.DR PO SCH (09:10)
[2021-11-05] MEDS: AMIODARONE HCL 200 MG TABLET PO SCH (09:10)
[2021-11-05] MEDS: ASCORBIC ACID 500 MG TABLET PO SCH ×2 (09:11→16:50)
[2021-11-05] MEDS: ASPIRIN 81 MG TAB.CHEW PO SCH (09:11)
[2021-11-05] MEDS: HEPARIN SODIUM, PORCINE 5000 UNITS/1 ML VIAL SQ SCH ×2 (09:16→21:13)
[2021-11-05] MEDS ORDERED: Sodium Bicarbonate 50 MEQ in IV NS 0.9% 1,000 ML IV SCH (11:00)
--- NOTE | 2021-11-05 11:49 | NUR ---
RN MS NOTES PT SEEN AND EXAMINED BY DR. FUENTES, PLAN OF CARE DISCUSSED WITH PT, MD AWARE OF PT'S EPISODE OF HYPOGLYCEMIA BEFORE BREAKFAST, ORDERS GIVEN, NOTED AND CARRIED OUT.
[2021-11-05 12:00] VITALS: BP 136/60
[2021-11-05 16:00] VITALS: BP 130/61
[2021-11-05] MEDS: GABAPENTIN 100 MG CAPSULE PO SCH (16:51)
[2021-11-05] MEDS: INSULIN REGULAR, HUMAN 100 UNIT/ML 3 ML VIAL SQ PRN (16:53)
--- NOTE | 2021-11-05 18:00 | NUR ---
RN CLOSING NOTE PATIENT ASLEEP IN BED. A/OX1. NO S/S OF DISTRESS, BREATHING W/O DIFFICULTY ON 2L NC. RFA #22 INTACT AND PATENT. NO S/S OF HYPOGLYCEMIA. SAFETY MEASURES IN PLACE: BED LOCKED & AT LOWEST POSITION, RAILS UP X3, CALL PICHARDO WITHIN REACH. WILL ENDORSE TO NEXT SHIFT FOR RADHA.
--- NOTE | 2021-11-05 19:20 | NUR ---
RN NOTE RECEIVED PATIENT IN BED, AO X 1-2, IN NO ACUTE DISTRESS AT THIS TIME, BREATHING EVEN AND UNLABORED, SATURATION AT 97% ON 2L VIA NC, HR IS 95. EMMANUELLE MIDLINE PATENT AND FLUSHING WELL, NO S/S OF INFECTION OR INFILTRATION, SALINE LOCKED. GUSTAFSON CATH DRAINING TO A CLEAR, YELLOW OUTPUT. SAFETY MEASURES IMPLEMENTED. PATIENT BED ALARM IS ON. HEAD OF BED ELEVATED. BED IS LOCKED, IN LOWEST POSITION AND SIDE RAILS UP. CALL LIGHT WITHIN REACH OF THE PATIENT. WILL CONTINUE TO MONITOR AND REASSESS FOR ANY CHANGES.
[2021-11-05 20:00] VITALS: BP 129/72
[2021-11-05] MEDS: *INSULIN REGULAR(HUMULIN R)HUM 100 UNIT/ML VIAL SQ PRN (21:15)
[2021-11-05] MEDS: INSULIN GLARGINE, 100 UNIT/ML CARTRIDGE SQ SCH (21:16)
[2021-11-05] MEDS: ATORVASTATIN 10 MG TABLET PO SCH (21:16)
[2021-11-06] VITALS: BP 129/72
[2021-11-06 04:00] VITALS: BP 116/69
[2021-11-06] MEDS: IV NS 0.9% 1,000 ML IV SCH ×3 (07:26→23:22)
--- NOTE | 2021-11-06 07:30 | NUR ---
MS RN opening NOTE PATIENT IN BED. PATIENT IS ALERT AND ORIENTED X1-2. PATIENT IS ON 2 L NASAL CANNULA TOLERATING 100%. PATIENT HAS IV ON RIGHT ARM. IV PATENT AND FLUSHING WELL. PATIENT HAS NORMAL SALINE RUNNING AT 125 ML/HR. PATIENT HAS DIAPER AND GUSTAFSON CATHETER. ALL SAFETY MEASURES IN PLACE. BED LOCKED AND IN LOWEST POSITION.CALL LIGHT WITHIN REACH. BEDSIDE TABLE NEXT TO PATIENT. WILL CONTINUE TO ASSESS THROUGHOUT SHIFT
[2021-11-06 07:56] LABS: BASOPHILS % (AUTO) 0.6 % (0.0-2.0); EOSINOPHILS % (AUTO) 8.1 % (0.0-6.0); HEMATOCRIT 28 % (33-45); HEMOGLOBIN 9.6 g/dL (11.5-14.8); LYMPHOCYTES # (AUTO) 1.7 K/uL (0.8-4.8); LYMPHOCYTES % (AUTO) 27.3 % (20.0-44.0); MEAN CORPUSCULAR HGB CONC 34 g/dl (31.0-36.0); MEAN CORPUSCULAR VOLUME 98 fL (82-100); MONOCYTES # (AUTO) 0.2 K/uL (0.1-1.30); MONOCYTES % (AUTO) 2.5 % (2.0-12.0); NEUTROPHILS # (AUTO) 3.8 K/uL (1.8-8.9); NEUTROPHILS % (AUTO) 61.5 % (43.0-81.0); PLATELET COUNT (AUTO) 134 K/uL (150-450); RED BLOOD CELL COUNT(AUTO) 2.91 MIL/uL (4.0-5.2); WHITE BLOOD COUNT (AUTO) 6.2 K/uL (4.3-11.0)
[2021-11-06 08:00] VITALS: BP 109/50
[2021-11-06 08:17] LABS: CALCIUM, SERUM 8.5 mg/dL (8.5-10.1); CARBON DIOXIDE 17 mmol/L (21-32); CHLORIDE 107 mmol/L (98-107); CREATININE 3.5 mg/dL (0.6-1.3); GLUCOSE 102 mg/dL (74-106); PHOSPHORUS 4.6 mg/dL (2.5-4.9); POTASSIUM 4.3 mmol/L (3.5-5.1); SODIUM SERUM 134 mmol/L (136-145); UREA NITROGEN, BLOOD 70 mg/dL (7-18)
[2021-11-06] MEDS: HYDROXYUREA 500 MG CAPSULE PO SCH (08:25)
[2021-11-06] MEDS: BLOOD SUGAR DIAGNOSTIC 1 EACH STRIP IN SCH ×4 (08:25→22:05)
[2021-11-06 08:29] LABS: MAGNESIUM 2.2 mg/dL (1.8-2.4)
[2021-11-06] MEDS: LEVOTHYROXINE SODIUM 25 MCG TABLET PO SCH (08:42)
[2021-11-06] MEDS: HEPARIN SODIUM, PORCINE 5000 UNITS/1 ML VIAL SQ SCH ×2 (09:00→22:04)
[2021-11-06] MEDS: PANTOPRAZOLE 40 MG TABLET.DR PO SCH (09:00)
[2021-11-06] MEDS: LEVETIRACETAM (250 MG) 250 MG TABLET PO SCH ×2 (09:00→18:50)
[2021-11-06] MEDS: ASPIRIN 81 MG TAB.CHEW PO SCH (09:00)
[2021-11-06] MEDS: AMIODARONE HCL 200 MG TABLET PO SCH (09:00)
[2021-11-06] MEDS: ASCORBIC ACID 500 MG TABLET PO SCH ×2 (09:00→18:50)
[2021-11-06 09:23] LABS: BAND % (MANUAL) 5 % (0.0-5.0); BASOPHILS % (MANUAL) 0 % (0.0-2.0); EOSINOPHILS % (MANUAL) 9 % (0-4); LYMPHOCYTES % (MANUAL) 23 % (16-48); MONOCYTES % (MANUAL) 3 % (0-11.0); NEUTROPHILS % (MANUAL) 60 (42-76)
[2021-11-06] MEDS: GLUCERNA SHAKE 237 ML CAN PO SCH ×2 (10:42→19:00)
[2021-11-06] MEDS: INSULIN REGULAR, HUMAN 100 UNIT/ML 3 ML VIAL SQ PRN (12:20)
--- NOTE | 2021-11-06 15:08 | NUR ---
ENDORSED BY SOLAR PV INSTALLER NURSE THAT REFUSES HYDROXYUREA
--- NOTE | 2021-11-06 15:13 | NUR ---
television script writer note notified dr. jones that sodium is currently 134 before it was 142 and currently on normal saline at 125 ml/hr. Addendum: 11/06/21 at 1629 by EMANUEL POP RN dr. jones said to hold po hydration meds if any and recheck labs in the morning
--- NOTE | 2021-11-06 15:37 | NUR ---
FAMILY AT BEDSIDE
[2021-11-06 16:00] VITALS: BP 122/66
--- NOTE | 2021-11-06 18:00 | NUR ---
C CONSULTANT NOTE spoke with patient's to consult with dr. bai and patient chief of service on whether or not she should be taking hydroxurea. dr. bai aware and will call chief of service on monday.
--- NOTE | 2021-11-06 18:30 | NUR ---
notified dr. bai that bs is 163 and hold insulin due to patient not eating a lot. md aware and acknowledged
[2021-11-06] MEDS: GABAPENTIN 100 MG CAPSULE PO SCH (18:51)
--- NOTE | 2021-11-06 19:15 | NUR ---
RN NOTE RECEIVED PATIENT IN BED, AO X 1-2, IN NO ACUTE DISTRESS AT THIS TIME, BREATHING EVEN AND UNLABORED, SATURATION AT 95% ON 2L VIA NC, HR IS 99. EMMANUELLE MIDLINE PATENT AND FLUSHING WELL, NO S/S OF INFECTION OR INFILTRATION, NS INFUSING AT 125 ML/HR. GUSTAFSON CATH DRAINING TO A CLEAR, YELLOW OUTPUT. SAFETY MEASURES IMPLEMENTED. PATIENT BED ALARM IS ON. HEAD OF BED ELEVATED. BED IS LOCKED, IN LOWEST POSITION AND SIDE RAILS UP. CALL LIGHT WITHIN REACH OF THE PATIENT. WILL CONTINUE TO MONITOR AND REASSESS FOR ANY CHANGES.
--- NOTE | 2021-11-06 19:45 | NUR ---
MS RN opening NOTE PATIENT IN BED. PATIENT IS ALERT AND ORIENTED X1-2. PATIENT IS ON 2 L NASAL CANNULA TOLERATING 100%. PATIENT HAS IV ON RIGHT ARM. IV PATENT AND FLUSHING WELL. PATIENT IS ON PUREED DIET. NO SIGNS OF PAIN OR DISCOMFORT AT THIS TIME.PATIENT HAS NORMAL SALINE RUNNING AT 125 ML/HR. PATIENT HAS DIAPER. ALL SAFETY MEASURES IN PLACE. BED LOCKED AND IN LOWEST POSITION.CALL LIGHT WITHIN REACH. BEDSIDE TABLE NEXT TO PATIENT. Addendum: 11/06/21 at 2002 by EMANUEL POP RN telecommunications linesworker closing note
[2021-11-06 20:00] VITALS: BP 127/67
[2021-11-06] MEDS: ATORVASTATIN 10 MG TABLET PO SCH (22:06)
[2021-11-06] MEDS: INSULIN GLARGINE, 100 UNIT/ML CARTRIDGE SQ SCH (22:06)
[2021-11-06] MEDS: *INSULIN REGULAR(HUMULIN R)HUM 100 UNIT/ML VIAL SQ PRN (22:28)
[2021-11-07] VITALS: BP 127/67
[2021-11-07] MEDS: ALPRAZOLAM 0.25 MG TABLET PO PRN ×2 (01:22→11:48)
[2021-11-07 04:00] VITALS: BP 117/63
[2021-11-07] MEDS: IV NS 0.9% 1,000 ML IV SCH (06:22)
[2021-11-07 07:20] LABS: BASOPHILS # (AUTO) 0.1 K/uL (0.0-0.2); EOSINOPHILS % (AUTO) 5.9 % (0.0-6.0); HEMATOCRIT 24 % (33-45); LYMPHOCYTES # (AUTO) 1.5 K/uL (0.8-4.8); LYMPHOCYTES % (AUTO) 28.2 % (20.0-44.0); MEAN CORPUSCULAR HGB CONC 34 g/dl (31.0-36.0); MEAN CORPUSCULAR VOLUME 97 fL (82-100); MONOCYTES # (AUTO) 0.1 K/uL (0.1-1.30); MONOCYTES % (AUTO) 2.2 % (2.0-12.0); NEUTROPHILS # (AUTO) 3.3 K/uL (1.8-8.9); NEUTROPHILS % (AUTO) 62.7 % (43.0-81.0); PLATELET COUNT (AUTO) 146 K/uL (150-450); RED BLOOD CELL COUNT(AUTO) 2.41 MIL/uL (4.0-5.2); WHITE BLOOD COUNT (AUTO) 5.3 K/uL (4.3-11.0)
--- NOTE | 2021-11-07 07:35 | NUR ---
RN OPEN NOTE PATIENT AWAKE IN BED. A/OX1. NO S/S OF DISTRESS, BREATHING NON LABORED ON 4L VIA NC. EMMANUELLE MIDLINE #22. RUNING AY 75 ML/HR OF D5W ,SAFETY MEASURES IN PLACE: BED LOCKED AND AT LOWEST POSITION, RAILS UP X2, CALL PICHARDO WITHIN REACH. WILL CONTINUE TO MONITOR THE PATIENT.
[2021-11-07 08:00] VITALS: BP 134/56
[2021-11-07] MEDS: LEVOTHYROXINE SODIUM 25 MCG TABLET PO SCH (08:02)
[2021-11-07] MEDS: BLOOD SUGAR DIAGNOSTIC 1 EACH STRIP IN SCH ×4 (08:03→21:09)
[2021-11-07] MEDS: GLUCERNA SHAKE 237 ML CAN PO SCH ×2 (08:04→17:04)
[2021-11-07 08:26] LABS: CARBON DIOXIDE 19 mmol/L (21-32); CHLORIDE 113 mmol/L (98-107); CREATININE 3.1 mg/dL (0.6-1.3); GLUCOSE 152 mg/dL (74-106); PHOSPHORUS 5.2 mg/dL (2.5-4.9); POTASSIUM 4.6 mmol/L (3.5-5.1); SODIUM SERUM 142 mmol/L (136-145); UREA NITROGEN, BLOOD 63 mg/dL (7-18)
[2021-11-07] MEDS: ASCORBIC ACID 500 MG TABLET PO SCH ×2 (09:49→17:03)
[2021-11-07] MEDS: HYDROXYUREA 500 MG CAPSULE PO SCH (09:50)
[2021-11-07] MEDS: ASPIRIN 81 MG TAB.CHEW PO SCH (09:50)
[2021-11-07] MEDS: LEVETIRACETAM (250 MG) 250 MG TABLET PO SCH ×2 (09:50→17:03)
[2021-11-07] MEDS: PANTOPRAZOLE 40 MG TABLET.DR PO SCH (09:50)
[2021-11-07] MEDS: AMIODARONE HCL 200 MG TABLET PO SCH (09:51)
[2021-11-07] MEDS: HEPARIN SODIUM, PORCINE 5000 UNITS/1 ML VIAL SQ SCH ×2 (09:53→20:30)
[2021-11-07] MEDS: INSULIN REGULAR, HUMAN 100 UNIT/ML 3 ML VIAL SQ PRN ×2 (12:13→18:21)
[2021-11-07] MEDS ORDERED: GUAIFENESIN/D-METHORPHAN HB 5 ML UDC PO PRN (13:00)
[2021-11-07 16:33] VITALS: BP 125/65
[2021-11-07] MEDS: GABAPENTIN 100 MG CAPSULE PO SCH (17:03)
[2021-11-07] MEDS: TRULICITY 1.5 MG/0.5 ML SQ SCH (17:14)
--- NOTE | 2021-11-07 18:45 | NUR ---
RN CLOSING NOTE PATIENT IS IN BED, ALERT , ORIENTED BY NAME .CURRENTLY ON NPO JUST MEDS, HAS EMMANUELLE MIDLINE NS RUNNING AT 125 ML/HR , HAS GUSTAFSON CATH IN PLACE RUINING YELLOW CLEAR URINE .STARTING MORNUING AROUND 10 AM MOANING , ASKED IF YOU HAVE ANY PAIN STATING NO. BED IS AT LOWEST POSITION , CALL LIGHT WITHIN REACH
--- NOTE | 2021-11-07 19:30 | NUR ---
MS RN OPENING NOTE RECEIVED PATIENT IN BED, AWAKE. A/O X 1. NO S/SX OF ACUTE DISTRESS NOTED AT THIS TIME, BREATHING IS NON LABORED. CURRENTLY ON O2 VIA NC, 2LPM, TOLERATING WELL. EMMANUELLE MIDLINE NOTED, RUNNING NS @ 40 CC/HR. GUSTAFSON CATH IN PLACE, DRAINING YELLOW URINE VIA GRAVITY. ALL SAFETY MEASURES IN PLACE: BED LOCKED IN LOWEST POSITION, BED ALARM ON, SIDE RAILS UP X2, CALL LIGHT WITHIN REACH. WILL CONTINUE TO MONITOR THE PATIENT.
[2021-11-07 20:00] VITALS: BP 135/64
[2021-11-07] MEDS: IV NS 0.9% 1,000 ML IV PRN (20:37)
[2021-11-07] MEDS: ATORVASTATIN 10 MG TABLET PO SCH (21:02)
[2021-11-07] MEDS: *INSULIN REGULAR(HUMULIN R)HUM 100 UNIT/ML VIAL SQ PRN (21:16)
[2021-11-08 04:00] VITALS: BP 133/63
--- NOTE | 2021-11-08 06:29 | NUR ---
MS RN CLOSING NOTE PT REMAINED STABLE THROUGHOUT THE SHIFT. NO ACUTE DISTRESS NOTED. CURRENTLY NPO EXCEPT MEDS. ALL DUE MEDS GIVEN. NEEDS ATTENDED TO. ALL SAFETY MEASURES IMPLEMENTED: BED LOCKED IN LOW POSITION. BED ALARM ON. CALL LIGHT WITHIN REACH. SR UP X3. WILL ENDORSE TO AM SHIFT NURSE FOR RADHA.
[2021-11-08 07:04] LABS: BASOPHILS # (AUTO) 0.1 K/uL (0.0-0.2); BASOPHILS % (AUTO) 0.8 % (0.0-2.0); EOSINOPHILS % (AUTO) 4.9 % (0.0-6.0); HEMATOCRIT 29 % (33-45); HEMOGLOBIN 9.5 g/dL (11.5-14.8); LYMPHOCYTES # (AUTO) 1.9 K/uL (0.8-4.8); LYMPHOCYTES % (AUTO) 24.9 % (20.0-44.0); MEAN CORPUSCULAR HGB CONC 33 g/dl (31.0-36.0); MEAN CORPUSCULAR VOLUME 99 fL (82-100); MONOCYTES # (AUTO) 0.2 K/uL (0.1-1.30); MONOCYTES % (AUTO) 3.2 % (2.0-12.0); NEUTROPHILS # (AUTO) 5.1 K/uL (1.8-8.9); NEUTROPHILS % (AUTO) 66.2 % (43.0-81.0); PLATELET COUNT (AUTO) 165 K/uL (150-450); WHITE BLOOD COUNT (AUTO) 7.6 K/uL (4.3-11.0)
--- NOTE | 2021-11-08 07:16 | NUR ---
RN open note PATIENT IS IN BED, ALERT , ORIENTED BY NAME .CURRENTLY ON NPO JUST MEDS, HAS EMMANUELLE MIDLINE NS RUNNING AT40 ML/HR , HAS GUSTAFSON CATH IN PLACE RUINING YELLOW CLEAR URINE .PATIENT IS MOANING , HEAVY BREATHING , BED IS AT LOWEST POSITION , SIDE RAILS ARE UP CALL LIGHT WITHIN REACH.
[2021-11-08 07:28] LABS: ALANINE AMINOTRANSFERASE 264 U/L (12-78); ALBUMIN 1.8 g/dL (3.4-5.0); ALKALINE PHOSPHATASE 839 U/L (46-116); ASPARTATE AMINOTRANSFERASE 154 U/L (15-37); BILIRUBIN,TOTAL 1.6 mg/dL (0.2-1.0); CALCIUM, SERUM 8.5 mg/dL (8.5-10.1); CARBON DIOXIDE 13 mmol/L (21-32); CHLORIDE 111 mmol/L (98-107); CREATININE 3.1 mg/dL (0.6-1.3); GLUCOSE 129 mg/dL (74-106); MAGNESIUM 2.3 mg/dL (1.8-2.4); PHOSPHORUS 5.5 mg/dL (2.5-4.9); POTASSIUM 5.1 mmol/L (3.5-5.1); SODIUM SERUM 139 mmol/L (136-145); UREA NITROGEN, BLOOD 59 mg/dL (7-18)
--- NOTE | 2021-11-08 07:39 | NUR ---
Received PT on 5 L NC,awake with Saturation of 93%. No increase WOB. will continue to monitor Addendum: 11/08/21 at 0741 by ARIELLE SANCHEZ RT Amended: Links added.
[2021-11-08] MEDS: BLOOD SUGAR DIAGNOSTIC 1 EACH STRIP IN SCH ×4 (07:55→21:34)
[2021-11-08] MEDS: LEVOTHYROXINE SODIUM 25 MCG TABLET PO SCH ×2 (07:58→08:59)
[2021-11-08] MEDS: HEPARIN SODIUM, PORCINE 5000 UNITS/1 ML VIAL SQ SCH ×2 (09:02→21:33)
[2021-11-08] MEDS: PANTOPRAZOLE 40 MG TABLET.DR PO SCH (09:03)
[2021-11-08] MEDS: LEVETIRACETAM (250 MG) 250 MG TABLET PO SCH ×2 (09:03→17:00)
[2021-11-08] MEDS: ASCORBIC ACID 500 MG TABLET PO SCH ×2 (09:03→17:00)
[2021-11-08] MEDS: ASPIRIN 81 MG TAB.CHEW PO SCH (09:03)
[2021-11-08] MEDS: HYDROXYUREA 500 MG CAPSULE PO SCH (09:03)
[2021-11-08] MEDS: AMIODARONE HCL 200 MG TABLET PO SCH (09:04)
[2021-11-08] MEDS: GLUCERNA SHAKE 237 ML CAN PO SCH ×2 (09:52→17:00)
[2021-11-08] MEDS: INSULIN REGULAR, HUMAN 100 UNIT/ML 3 ML VIAL SQ PRN ×2 (13:42→18:58)
[2021-11-08 15:57] VITALS: BP 143/73
[2021-11-08] MEDS: GABAPENTIN 100 MG CAPSULE PO SCH (18:01)
--- NOTE | 2021-11-08 18:27 | NUR ---
RN NOTE PM MEDICATIONS NOT ADMINISTERED DUE TO PATIENTS IS NOT SAFE TO SWALLOW , SPEECH THERAPIST EVALUATION IS PENDING.
--- NOTE | 2021-11-08 19:21 | NUR ---
RN CLOSING NOTE RN open note PATIENT IS IN BED, DISORIENTED BY NAME .CURRENTLY ON NPO JUST MEDS, HAS EMMANUELLE MIDLINE NS RUNNING AT40 ML/HR , HAS GUSTAFSON CATH IN PLACE RUINING YELLOW CLEAR URINE .PATIENT IS MOANING , HEAVY BREATHING , HAS HD CATHATHER PLACED, XR FOR PLACEMENT PENDING. BED IS AT LOWEST POSITION , SIDE RAILS ARE UP CALL LIGHT WITHIN REACH.
[2021-11-08 20:00] VITALS: BP 135/65
--- NOTE | 2021-11-08 20:41 | NUR ---
MS RN NOTE PT TRANSFERRED FROM ROOM 110 TO ROOM # 117-2. ALSO STARTED HD AT THIS TIME.
[2021-11-08 20:56] LABS: IRON, SERUM 146 ug/dl (50-175); TOTAL IRON BINDING CAPACITY 181 ug/dl (250-450)
[2021-11-08] MEDS: ATORVASTATIN 10 MG TABLET PO SCH (21:33)
[2021-11-08] MEDS: Z GUARD REMEDY 4 OZ OINT TP SCH (21:41)
[2021-11-08] MEDS: MIDODRINE HCL (5MG) 5 MG TABLET PO SCH (23:00)
--- NOTE | 2021-11-08 23:00 | NUR ---
SUPERVISOR MOLD YARD NOTE PT ON DIALYSIS NOTED RESP 36, B/P WNL. DR FRANCIS INFORMED, DR CAME TO VISIT THE PT AND GAVE NEW ORDERS , ORDERS NOTED AND CARRIED. DIALYSIS STOPPED. BP IS 122/68, ON 233 ML OUT BY DIALYSIS NURSE. ABG RESULT PENDING. CONTINUE TO MONITOR HER. IVF NS INFUSING AT 40 ML/HR, NO S/S OF INFILTRATION NOTED.
[2021-11-08] MEDS: IV NS 0.9% 1,000 ML IV PRN (23:08)
--- NOTE | 2021-11-08 23:49 | NUR ---
TEACHER INDUSTRIAL ARTS NOTE ABG DONE AND RESULT GIVEN TO DR FRANCIS. PER MD NO ISSUE WITH ABG AND NO NEW ORDER AT THIS TIME. CONTINUE TO MONITOR
[2021-11-09] VITALS (17 sets, daily range): BP systolic 109–144; BP diastolic 47–74
--- NOTE | 2021-11-09 03:57 | NUR ---
INDUSTRIAL RECRUITER NOTE PT IN BED ASLEEP, NO DISTRESS NOTED. ON TELE MONITOR SR/ST WITH PAC HR 110. IVF INFUSING WELL, NO S/S OF INFILTRATION NOTED. CONTINUE TO MONITOR HER.
[2021-11-09 05:52] LABS: BASOPHILS # (AUTO) 0.1 K/uL (0.0-0.2); HEMATOCRIT 28 % (33-45); HEMOGLOBIN 9.3 g/dL (11.5-14.8); LYMPHOCYTES # (AUTO) 1.6 K/uL (0.8-4.8); LYMPHOCYTES % (AUTO) 18.9 % (20.0-44.0); MEAN CORPUSCULAR HGB CONC 34 g/dl (31.0-36.0); MEAN CORPUSCULAR VOLUME 99 fL (82-100); MONOCYTES # (AUTO) 0.2 K/uL (0.1-1.30); MONOCYTES % (AUTO) 2.6 % (2.0-12.0); NEUTROPHILS # (AUTO) 6.4 K/uL (1.8-8.9); NEUTROPHILS % (AUTO) 73.5 % (43.0-81.0); PLATELET COUNT (AUTO) 160 K/uL (150-450); RED BLOOD CELL COUNT(AUTO) 2.79 MIL/uL (4.0-5.2); WHITE BLOOD COUNT (AUTO) 8.7 K/uL (4.3-11.0)
[2021-11-09 06:05] LABS: ABG BASE EXCESS -5.1 mmol/L; ABG OXYGEN SATURATION 93.2 % (92.0-98.5); ABG PH 7.486 (7.350-7.450); ABG PO2 65.1 mmHg (75.0-100.0); COHb 0.3 % (0.5-1.5); MetHb 0.2 % (0.0-1.5); O2Hb 92.7 % (94.0-97.0); SITE, ABG Right Radial; VENT MODE, BG N/C 3L
[2021-11-09] MEDS: BLOOD SUGAR DIAGNOSTIC 1 EACH STRIP IN SCH ×4 (06:20→22:00)
[2021-11-09 07:12] LABS: CALCIUM, SERUM 8.8 mg/dL (8.5-10.1); CARBON DIOXIDE 15 mmol/L (21-32); CHLORIDE 109 mmol/L (98-107); CREATININE 2.4 mg/dL (0.6-1.3); GLUCOSE 150 mg/dL (74-106); MAGNESIUM 2.1 mg/dL (1.8-2.4); PHOSPHORUS 5.1 mg/dL (2.5-4.9); POTASSIUM 4.7 mmol/L (3.5-5.1); SODIUM SERUM 141 mmol/L (136-145); UREA NITROGEN, BLOOD 44 mg/dL (7-18)
--- NOTE | 2021-11-09 07:30 | NUR ---
UNDERWRITING OPERATIONS MANAGER NOTE PATIENT RECEIVED IN BED WITH O2 VIA NASAL CANNULA AT 3L/MIN, O2 SATURATION AT 94%. PATIENT APPEARS TO BE IN LABORED BREATHING, RESPIRATORY RATE MORE THAN 30 PER MINUTE. PATIENT UNABLE TO OPEN EYES TO VERBAL CUES, TOUCH, AND LIGHT PAIN. INFORMED CHARGE NURSE WHO INFORMED DR. PETERSON. STAT ABG WAS ORDERED AND TRANSFER TO ICU WAS MADE. PATIENT ENDORSED TO GOSIA FONG FOR CONTINUITY OF CARE.
--- NOTE | 2021-11-09 07:32 | NUR ---
patient seen and evaluated by dr. paz nonresponsive,c/o fish like breathing,transferred to [address] m[address]onald .
[2021-11-09 07:57] LABS: ABG OXYGEN SATURATION 92.8 % (92.0-98.5); ABG PCO2 19.1 mmHg (35.0-45.0); ABG PH 7.457 (7.350-7.450); ABG PO2 66.7 mmHg (75.0-100.0); AaDO2 139.1 mmHg; MetHb 0.3 % (0.0-1.5); O2Hb 92.5 % (94.0-97.0); SITE, ABG Right Radial; VENT MODE, BG nasal cannula
[2021-11-09] MEDS: GLUCERNA SHAKE 237 ML CAN PO SCH ×2 (08:00→17:00)
[2021-11-09] MEDS: ASPIRIN 81 MG TAB.CHEW PO SCH (08:11)
[2021-11-09] MEDS: AMIODARONE HCL 200 MG TABLET PO SCH (08:11)
[2021-11-09] MEDS: HYDROXYUREA 500 MG CAPSULE PO SCH (08:12)
[2021-11-09] MEDS: MIDODRINE HCL (5MG) 5 MG TABLET PO SCH ×3 (08:12→17:00)
[2021-11-09] MEDS: LEVETIRACETAM (250 MG) 250 MG TABLET PO SCH ×2 (08:12→17:00)
[2021-11-09] MEDS: PANTOPRAZOLE 40 MG TABLET.DR PO SCH (08:13)
[2021-11-09] MEDS: ASCORBIC ACID 500 MG TABLET PO SCH ×2 (08:13→17:00)
--- NOTE | 2021-11-09 08:13 | NUR ---
PO Meds held. Pt tx to ICU for AMS / Obtunded. High Risk for Aspiration. May need NGT for Med access
[2021-11-09 08:30] LABS: ALBUMIN 1.9 g/dL (3.4-5.0); BILIRUBIN,DIRECT 0.5 mg/dL (0.0-0.2); TOTAL PROTEIN, SERUM 6.3 g/dL (6.4-8.2)
[2021-11-09] MEDS: HEPARIN SODIUM, PORCINE 5000 UNITS/1 ML VIAL SQ SCH (08:53)
[2021-11-09] MEDS: Z GUARD REMEDY 4 OZ OINT TP SCH (08:55)
[2021-11-09] MEDS ORDERED: ALBUMIN 25% 100 ML IV ONE (11:12)
[2021-11-09 12:01] LABS: BILIRUBIN,URINE NEGATIVE (NEGATIVE); COLOR,URINE YELLOW (YELLOW); LEUKOCYTE ESTERASE ,URINE TRACE (NEGATIVE); NITRITE, URINE NEGATIVE (NEGATIVE); PH,URINE 5.5 (5.0-8.0); PROTEIN,URINE 100 mg/dl (NEGATIVE); UGLUCOSE NEGATIVE (NEGATIVE); UROBILINOGEN,URINE 0.2 EU/dL (0.2)
[2021-11-09 12:12] LABS: BACTERIA,URINE Moderate /HPF (None Seen); SQUAMOUS EPITHELIAL CELL,UR Moderate /HPF (None Seen)
[2021-11-09 12:22] LABS: FINE GRANULAR CASTS,URINE Moderate /LPF (None Seen)
[2021-11-09 13:51] LABS: ABG BASE EXCESS -2.8 mmol/L; ABG OXYGEN SATURATION 94.8 % (92.0-98.5); ABG PCO2 23.9 mmHg (35.0-45.0); ABG PH 7.523 (7.350-7.450); ABG PO2 73.3 mmHg (75.0-100.0); AaDO2 126.9 mmHg; COHb 0.2 % (0.5-1.5); MetHb 0.3 % (0.0-1.5); O2Hb 94.3 % (94.0-97.0); SITE, ABG Right Radial; VENT MODE, BG nasal cannula
[2021-11-09] MEDS: ALBUMIN 25% 25 GM in PREMIX 1 EA IV PRN (14:02)
[2021-11-09] MEDS: GABAPENTIN 100 MG CAPSULE PO SCH (18:00)
--- NOTE | 2021-11-09 18:00 | NUR ---
Pt Opens eyes with tactile stimuli, remains high risk for aspiration, PO meds held. Tolerated HD today. Cont close ICU monitoring.
[2021-11-09] MEDS: ATORVASTATIN 10 MG TABLET PO SCH (21:16)
[2021-11-10] VITALS (24 sets, daily range): BP systolic 115–152; BP diastolic 44–78
[2021-11-10] MEDS: LEVOTHYROXINE SODIUM 25 MCG TABLET PO SCH (07:30)
[2021-11-10] MEDS: GLUCERNA SHAKE 237 ML CAN PO SCH ×2 (08:00→17:00)
[2021-11-10] MEDS: BLOOD SUGAR DIAGNOSTIC 1 EACH STRIP IN SCH ×4 (08:15→21:10)
[2021-11-10 08:17] LABS: BASOPHILS # (AUTO) 0.1 K/uL (0.0-0.2); BASOPHILS % (AUTO) 1.6 % (0.0-2.0); HEMATOCRIT 25 % (33-45); HEMOGLOBIN 8.2 g/dL (11.5-14.8); LYMPHOCYTES # (AUTO) 1.6 K/uL (0.8-4.8); LYMPHOCYTES % (AUTO) 22.2 % (20.0-44.0); MEAN CORPUSCULAR HGB CONC 33 g/dl (31.0-36.0); MEAN CORPUSCULAR VOLUME 99 fL (82-100); MONOCYTES # (AUTO) 0.3 K/uL (0.1-1.30); MONOCYTES % (AUTO) 4.7 % (2.0-12.0); NEUTROPHILS % (AUTO) 67.5 % (43.0-81.0); PLATELET COUNT (AUTO) 173 K/uL (150-450); RED BLOOD CELL COUNT(AUTO) 2.51 MIL/uL (4.0-5.2); WHITE BLOOD COUNT (AUTO) 7.4 K/uL (4.3-11.0)
[2021-11-10] MEDS: LEVETIRACETAM (250 MG) 250 MG TABLET PO SCH ×2 (08:17→17:00)
[2021-11-10] MEDS: HYDROXYUREA 500 MG CAPSULE PO SCH (08:17)
[2021-11-10] MEDS: AMIODARONE HCL 200 MG TABLET PO SCH (08:17)
[2021-11-10] MEDS: ASPIRIN 81 MG TAB.CHEW PO SCH (08:17)
[2021-11-10] MEDS: MIDODRINE HCL (5MG) 5 MG TABLET PO SCH ×3 (08:18→17:00)
[2021-11-10] MEDS: ASCORBIC ACID 500 MG TABLET PO SCH ×2 (08:21→17:00)
[2021-11-10] MEDS: PANTOPRAZOLE 40 MG TABLET.DR PO SCH (08:21)
--- NOTE | 2021-11-10 08:21 | NUR ---
Pt Awake but remains High risk for aspiration. "Pocketing food". awaiting swallow eval speech. will request for NGT insertion order for med administration access.
[2021-11-10] MEDS: Z GUARD REMEDY 4 OZ OINT TP SCH (08:30)
[2021-11-10 08:31] LABS: CALCIUM, SERUM 8.6 mg/dL (8.5-10.1); CARBON DIOXIDE 15 mmol/L (21-32); CHLORIDE 102 mmol/L (98-107); CREATININE 2.2 mg/dL (0.6-1.3); GLUCOSE 199 mg/dL (74-106); POTASSIUM 3.9 mmol/L (3.5-5.1); SODIUM SERUM 137 mmol/L (136-145); UREA NITROGEN, BLOOD 39 mg/dL (7-18)
[2021-11-10 08:58] LABS: ABG BASE EXCESS -9.5 mmol/L; ABG OXYGEN SATURATION 94.4 % (92.0-98.5); ABG PCO2 20.8 mmHg (35.0-45.0); ABG PH 7.429 (7.350-7.450); ABG PO2 77.4 mmHg (75.0-100.0); AaDO2 155.2 mmHg; COHb 0.3 % (0.5-1.5); MetHb 0.3 % (0.0-1.5); O2Hb 93.8 % (94.0-97.0); SITE, ABG Left Radial; VENT MODE, BG 4 L NC
--- NOTE | 2021-11-10 11:01 | NUR ---
ICU/RN NOTE HEMO DIALYSIS WAS COMPLETED. REPORT RECEIVED FROM HD RN. NOTHING WAS TAKEN OUT. 500ML SALINE WAS PUT IN. 100ML OF ALBUMIN WAS PUT IN. PATIENT TOLERATED THE HD WELL.
[2021-11-10] MEDS: INSULIN REGULAR, HUMAN 100 UNIT/ML 3 ML VIAL SQ PRN ×2 (14:11→21:11)
[2021-11-10] MEDS ORDERED: TPN/PPN PER PHARMACY XX PRN (17:30)
[2021-11-10] MEDS: GABAPENTIN 100 MG CAPSULE PO SCH (18:00)
--- NOTE | 2021-11-10 19:30 | NUR ---
LOGISTICS ADMINISTRATOR NOTE REPORT GIVEN, ALL CARE ENDORSE TO EQUIPMENT LEAD RN.
--- NOTE | 2021-11-10 21:14 | NUR ---
ICU/RN NOTE BS CHECKED AT 163 MG/DL, 4 UNITS OF INSULIN GIVEN PER SLIDING SCALE.
[2021-11-10] MEDS: ATORVASTATIN 10 MG TABLET PO SCH (21:17)
[2021-11-11] VITALS (16 sets, daily range): BP systolic 123–145; BP diastolic 47–84
--- NOTE | 2021-11-11 07:40 | NUR ---
ICU/RN PT IS RESTING.ON 4L N/C SAT O2-97%.V/S STABLE.AFEBRILE.NO PAIN REPORTED AT THIS TIME.RIGHT IJ HD CATH.PT IS NPO.RIGHT UPPER ML.F/C IN PLACE DRAINING WITH YELLOW URINE.LABS REVIEW. AWARE.
[2021-11-11] MEDS: BLOOD SUGAR DIAGNOSTIC 1 EACH STRIP IN SCH ×4 (07:57→22:55)
[2021-11-11] MEDS: GLUCERNA SHAKE 237 ML CAN PO SCH (08:00)
[2021-11-11 08:28] LABS: BASOPHILS # (AUTO) 0.1 K/uL (0.0-0.2); BASOPHILS % (AUTO) 1.9 % (0.0-2.0); EOSINOPHILS % (AUTO) 4.9 % (0.0-6.0); HEMATOCRIT 23 % (33-45); HEMOGLOBIN 7.8 g/dL (11.5-14.8); LYMPHOCYTES # (AUTO) 1.7 K/uL (0.8-4.8); LYMPHOCYTES % (AUTO) 26.1 % (20.0-44.0); MEAN CORPUSCULAR HGB CONC 34 g/dl (31.0-36.0); MEAN CORPUSCULAR VOLUME 98 fL (82-100); MONOCYTES # (AUTO) 0.4 K/uL (0.1-1.30); NEUTROPHILS # (AUTO) 3.9 K/uL (1.8-8.9); NEUTROPHILS % (AUTO) 61.1 % (43.0-81.0); PLATELET COUNT (AUTO) 174 K/uL (150-450); RED BLOOD CELL COUNT(AUTO) 2.37 MIL/uL (4.0-5.2); WHITE BLOOD COUNT (AUTO) 6.4 K/uL (4.3-11.0)
[2021-11-11 08:38] LABS: CALCIUM, SERUM 8.3 mg/dL (8.5-10.1); CARBON DIOXIDE 22 mmol/L (21-32); CHLORIDE 104 mmol/L (98-107); GLUCOSE 193 mg/dL (74-106); PHOSPHORUS 4.5 mg/dL (2.5-4.9); POTASSIUM 3.2 mmol/L (3.5-5.1); SODIUM SERUM 138 mmol/L (136-145); UREA NITROGEN, BLOOD 31 mg/dL (7-18)
[2021-11-11] MEDS: AMIODARONE HCL 200 MG TABLET PO SCH (09:05)
[2021-11-11] MEDS: LEVETIRACETAM (250 MG) 250 MG TABLET PO SCH (09:05)
[2021-11-11] MEDS: LEVOTHYROXINE SODIUM 25 MCG TABLET PO SCH (09:05)
[2021-11-11] MEDS: ASCORBIC ACID 500 MG TABLET PO SCH (09:05)
[2021-11-11] MEDS: PANTOPRAZOLE 40 MG TABLET.DR PO SCH (09:05)
[2021-11-11] MEDS: ASPIRIN 81 MG TAB.CHEW PO SCH (09:05)
[2021-11-11] MEDS: MIDODRINE HCL (5MG) 5 MG TABLET PO SCH (09:06)
[2021-11-11] MEDS: HYDROXYUREA 500 MG CAPSULE PO SCH (09:06)
[2021-11-11] MEDS: Z GUARD REMEDY 4 OZ OINT TP SCH (09:06)
--- NOTE | 2021-11-11 09:30 | NUR ---
ICU/RN RIGHT NG TUBE INSERTED ORDERED.DUE MEDS ARE GIVEN ORDERED.PT IS OPEN HER EYES,CONFUSED ,NOT FOLLOWS COMMAND.GENERALIZED EDEMA PRESENT.BILATERAL SOFT WRIST RESTRAINS APPLIED.PT TRY TO REMOVED NG TUBE.
[2021-11-11] MEDS ORDERED: PHARMACY TO CHANGE PO MEDS TO GT/NG XX PRN (10:30)
[2021-11-11] MEDS ORDERED: ALPRAZOLAM 0.25 MG TABLET GT PRN (10:34)
[2021-11-11 10:37] LABS: ABG BASE EXCESS -4.5 mmol/L; ABG OXYGEN SATURATION 97.4 % (92.0-98.5); ABG PCO2 28.4 mmHg (35.0-45.0); ABG PH 7.441 (7.350-7.450); ABG PO2 112.3 mmHg (75.0-100.0); COHb 0.3 % (0.5-1.5); MetHb 0.5 % (0.0-1.5); O2Hb 96.6 % (94.0-97.0); SITE, ABG Right Radial
[2021-11-11] MEDS ORDERED: GLUCERNA SHAKE 237 ML CAN GT SCH (10:39)
[2021-11-11] MEDS ORDERED: GUAIFENESIN/D-METHORPHAN HB 5 ML UDC GT PRN (10:40)
--- NOTE | 2021-11-11 10:45 | NUR ---
ICU/RN ABG DONE. NOTIFIED.OK TRANSFER PT TO TELE UNIT.OK TO START NG TUBE FEEDING..CHARGE NURSE NOTIFIED.WAITING FOR THE BED.
[2021-11-11] MEDS ORDERED: ALPRAZOLAM 0.25 MG TABLET PO PRN (11:00)
[2021-11-11] MEDS ORDERED: GLUCERNA SHAKE 237 ML CAN PO SCH (11:00)
[2021-11-11] MEDS ORDERED: AMIODARONE HCL 200 MG TABLET PO SCH (11:00)
[2021-11-11] MEDS ORDERED: ASCORBIC ACID 500 MG TABLET PO SCH (11:00)
[2021-11-11] MEDS ORDERED: LEVOTHYROXINE SODIUM 25 MCG TABLET PO SCH (11:00)
[2021-11-11] MEDS ORDERED: GUAIFENESIN/D-METHORPHAN HB 5 ML UDC PO PRN (11:00)
[2021-11-11] MEDS ORDERED: ASPIRIN 81 MG TAB.CHEW PO SCH (11:00)
[2021-11-11] MEDS ORDERED: NEPRO 1,000 ML BOTTLE GT PRN (11:30)
--- NOTE | 2021-11-11 12:05 | NUR ---
ICU/RN PT TRANSFER TO TELE UNIT.V/S STABLE ,AFEBRILE.NO PAIN REPORTED AT THIS TIME.REPORT GIVEN TO TERI/GOSIA
[2021-11-11] MEDS: *INSULIN REGULAR(HUMULIN R)HUM 100 UNIT/ML VIAL SQ PRN ×2 (12:29→17:34)
--- NOTE | 2021-11-11 12:52 | NUR ---
RN NOTE RESUMES CARE FOR PATIENT
[2021-11-11] MEDS ORDERED: MIDODRINE HCL (5MG) 5 MG TABLET PO SCH (13:00)
[2021-11-11] MEDS: MIDODRINE HCL (5MG) 5 MG TABLET GT SCH ×2 (13:43→17:33)
[2021-11-11] MEDS: POTASSIUM CL. PREMIX PERIPHER. 50 ML IV SCH ×3 (13:44→15:59)
--- NOTE | 2021-11-11 15:02 | NUR ---
RN NOTE G TUBE PLACEMENT CONFIRMED WITH ROSALINE ELISE.
[2021-11-11] MEDS: GABAPENTIN 100 MG CAPSULE GT SCH (17:33)
[2021-11-11] MEDS: GLUCERNA 1.2 1,000 ML BOTTLE NG PRN (17:33)
[2021-11-11] MEDS: ASCORBIC ACID 500 MG TABLET GT SCH (17:34)
[2021-11-11] MEDS ORDERED: GABAPENTIN 100 MG CAPSULE PO SCH (18:00)
--- NOTE | 2021-11-11 18:48 | NUR ---
RN CLOSING NOTE PATIENT RESTING IN BED A/OX1. PATIENT IN 3L NC WITH NO SINGS OF RESPIRATORY DISTRESS OR PAIN. ON TELE MONITOR. NG TUBE IN PLACE RUNNING NEPRO AT 20MLS/HR WITH A GOAL OF 50MLS. IV ACCES ON EMMANUELLE MIDLINE 18 G OPEN TO TKO. SAFETY MEASURES IN PLACE WILL ENDORSE TO NIGHT NURSE FOR RADHA.
--- NOTE | 2021-11-11 20:09 | NUR ---
DIE DRAWING CHECKER OPENING NOTES: RECEIVED PATIENT SLEEP IN BED COMFORTABLY, BED IN LOW POSITION CALL LIGHTS WITHIN REACH, NO COMPLAIN OF PAIN AND DISCOMFORT AT THIS TIME, ON O2 INHALATION AT 3LPM SATURATING WELL PATIENT ON HD AT RIGHT JUGULAR VEIN HD DONE YESTERDAY WITH 1L OUT, ON TELE MONITOR ST-114, ON NGT AT 20LPM PATIENT IS ON BILAT SOFT WRIST RESTRAINT, PATIENT KEPT CLEAN AND DRY ALL NEEDS MET WILL CONTINUE TO MONITOR.
[2021-11-11] MEDS: LEVETIRACETAM SOL (5 ML) 100 MG/ML UDC GT SCH (21:43)
[2021-11-11] MEDS: ATORVASTATIN 10 MG TABLET GT SCH (21:44)
[2021-11-11] MEDS ORDERED: ATORVASTATIN 10 MG TABLET PO SCH (22:00)
[2021-11-11] MEDS: INSULIN REGULAR, HUMAN 100 UNIT/ML 3 ML VIAL SQ PRN (22:52)
--- NOTE | 2021-11-11 22:55 | NUR ---
RN NOTES: BLOOD SUGAR -218/ 8 REGULAR INSULIN GIVEN PER SLIDING SCALE
[2021-11-11] MEDS: ACETAMINOPHEN 650 MG/20.3 ML UDC NG PRN (23:15)
--- NOTE | 2021-11-11 23:15 | NUR ---
RN NOTES: NOTIFY DR FUENTES FOR PATIENT TEMP AT 101.2 AD REQUEST MEDICATION FOR INCREASE TEMP, REPLIED TO GIVE ACETAMINOPHEN 650MG Q4H PRN FOR FEVER NOTED AND CARRY OUT-ACETAMINOPHEN 650 MG GIVEN FOR TEMP AT 101.2
[2021-11-12] VITALS (7 sets, daily range): BP systolic 104–118; BP diastolic 41–51
[2021-11-12 06:48] LABS: CALCIUM, SERUM 8.4 mg/dL (8.5-10.1); CARBON DIOXIDE 24 mmol/L (21-32); CHLORIDE 106 mmol/L (98-107); CREATININE 2.4 mg/dL (0.6-1.3); GLUCOSE 291 mg/dL (74-106); MAGNESIUM 2.2 mg/dL (1.8-2.4); PHOSPHORUS 5.9 mg/dL (2.5-4.9); POTASSIUM 4.1 mmol/L (3.5-5.1); SODIUM SERUM 139 mmol/L (136-145); UREA NITROGEN, BLOOD 42 mg/dL (7-18)
[2021-11-12 06:57] LABS: HEMATOCRIT 24 % (33-45); MEAN CORPUSCULAR HGB CONC 33 g/dl (31.0-36.0); MEAN CORPUSCULAR VOLUME 99 fL (82-100); PLATELET COUNT (AUTO) 173 K/uL (150-450); RED BLOOD CELL COUNT(AUTO) 2.42 MIL/uL (4.0-5.2); WHITE BLOOD COUNT (AUTO) 7.3 K/uL (4.3-11.0)
--- NOTE | 2021-11-12 07:04 | NUR ---
ADMISSIONS REPRESENTATIVE CLOSING NOTES: PATIENT SLEEP IN BED COMFORTABLY, AROUSABLE TO VERBAL STIMULI, BED IN LOW POSITION CALL LIGHTS WITHIN REACH, NO COMPLAIN OF PAIN AND DISCOMFORT AT THIS TIME ON O2 INHALATION AT 3LPM SATURATING WELL, PATIENT ON TELE MONITOR SR-77, KEPT CLEAN AND DRY ALL NEEDS MET ENDORSE TO INCOMING SHIFT.
[2021-11-12] MEDS: BLOOD SUGAR DIAGNOSTIC 1 EACH STRIP IN SCH ×4 (07:37→22:04)
[2021-11-12] MEDS: PANTOPRAZOLE 40 MG/PACK PACK NG SCH (08:14)
[2021-11-12] MEDS: LEVETIRACETAM SOL (5 ML) 100 MG/ML UDC GT SCH ×2 (08:14→20:39)
[2021-11-12] MEDS: ASPIRIN 81 MG TAB.CHEW GT SCH (08:14)
[2021-11-12] MEDS: ASCORBIC ACID 500 MG TABLET GT SCH ×2 (08:15→17:31)
[2021-11-12] MEDS: AMIODARONE HCL 200 MG TABLET GT SCH (08:15)
[2021-11-12] MEDS: MIDODRINE HCL (5MG) 5 MG TABLET GT SCH ×3 (08:15→17:31)
[2021-11-12] MEDS: LEVOTHYROXINE SODIUM 25 MCG TABLET GT SCH (08:15)
[2021-11-12] MEDS: HYDROXYUREA 500 MG CAPSULE GT SCH (08:15)
[2021-11-12] MEDS: Z GUARD REMEDY 4 OZ OINT TP SCH (08:16)
[2021-11-12] MEDS: INSULIN REGULAR, HUMAN 100 UNIT/ML 3 ML VIAL SQ PRN ×4 (08:17→22:03)
[2021-11-12 10:20] LABS: BAND % (MANUAL) 25 % (0.0-5.0); NEUTROPHILS % (MANUAL) 54 (42-76)
[2021-11-12 10:21] LABS: EOSINOPHILS % (MANUAL) 2 % (0-4); LYMPHOCYTES % (MANUAL) 16 % (16-48); MONOCYTES % (MANUAL) 3 % (0-11.0)
--- NOTE | 2021-11-12 15:30 | NUR ---
RN NOTE HD INITIATED. PT DEMONSTRATING SHACKING ON RIGHT UPPER EXTREMITY AND PALENESS. HD STOPPED, VITAL HR 120, SPO2 95%, BP STABLE. 700CC REMOVED.
[2021-11-12] MEDS: GABAPENTIN 100 MG CAPSULE GT SCH (17:31)
[2021-11-12] MEDS: GLUCERNA 1.2 1,000 ML BOTTLE NG PRN (17:58)
--- NOTE | 2021-11-12 20:00 | NUR ---
BLUEPRINT READER OPENING NOTES: RECEIVED PATIENT SLEEP IN BED COMFORTABLY, BED IN LOW POSITION CALL LIGHTS WITHIN REACH, NO COMPLAIN OF PAIN AND DISCOMFORT AT THIS TIME, HOB ELEVATED AT ALL TIMES FOR ASPIRATION PRECAUTION.ON O2 INHALATION AT 4LPM SATURATING WELL 93-94% ON HD CATH AT RIGHT JUGULAR HD DONE TODAY WITH 700CC OUT, ON TELE MONITOR ST-104, ON NGT AT RIGHT NOSETRILS AT 65 INCH LOUISA GLUCERNA 1.2 AT 50CC/HR PATIENNO RESIDUAL NOTED.T IS ON BILAT SOFT WRIST RESTRAINT, PATIENT KEPT CLEAN AND DRY ALL NEEDS MET WILL CONTINUE TO MONITOR PTS .V/S STABLE FEBRILE TEMP 100.6 COOLING MEASURES APPLIED.
[2021-11-12] MEDS: ACETAMINOPHEN 650 MG/20.3 ML UDC NG PRN (20:39)
[2021-11-12] MEDS: ATORVASTATIN 10 MG TABLET GT SCH (21:28)
--- NOTE | 2021-11-12 22:06 | NUR ---
outbound telemarketer notes Blood sugar at 10pm is 178mg/dl 4 units of regular insulin given per sliding scale pts on gt feeding on progress will checked blood sugar again in am
--- NOTE | 2021-11-12 22:07 | NUR ---
senior telecommunications specialist notes temperature of 100.6 acetamenophen given as ordered . cooling measures applied.will continue to monitor pts.
[2021-11-13] VITALS: BP 106/49
[2021-11-13 04:00] VITALS: BP 104/40
[2021-11-13 06:47] LABS: BASOPHILS # (AUTO) 0.1 K/uL (0.0-0.2); BASOPHILS % (AUTO) 0.6 % (0.0-2.0); EOSINOPHILS % (AUTO) 5.8 % (0.0-6.0); HEMATOCRIT 21 % (33-45); HEMOGLOBIN 7.2 g/dL (11.5-14.8); LYMPHOCYTES # (AUTO) 1.4 K/uL (0.8-4.8); LYMPHOCYTES % (AUTO) 15.5 % (20.0-44.0); MEAN CORPUSCULAR HGB CONC 34 g/dl (31.0-36.0); MEAN CORPUSCULAR VOLUME 99 fL (82-100); MONOCYTES # (AUTO) 0.3 K/uL (0.1-1.30); MONOCYTES % (AUTO) 3.8 % (2.0-12.0); NEUTROPHILS # (AUTO) 6.5 K/uL (1.8-8.9); NEUTROPHILS % (AUTO) 74.3 % (43.0-81.0); PLATELET COUNT (AUTO) 204 K/uL (150-450); RED BLOOD CELL COUNT(AUTO) 2.15 MIL/uL (4.0-5.2); WHITE BLOOD COUNT (AUTO) 8.7 K/uL (4.3-11.0)
--- NOTE | 2021-11-13 07:16 | NUR ---
relay telegrapher notes Pts remains in bed comfortable afebrile. on 4l 0f 02via nc sating 98% . will endorse to rn day shift for continuity of care.
--- NOTE | 2021-11-13 07:28 | NUR ---
RN OPENING NOTE RECEIVED PATIENT REPORT FROM NIGHTSHIFT RN. PATIENT IN BED ON 4 LITERS NASAL CANULA, OYGEN SATURATION AT 95%. PATIENT IS ALERT AND ORIENTED TIMES 1, NONVERBAL. ATTACHED TO EXTERNAL HEEL LINING PASTER READING SINUS TACHYCARDIA AT 114 BEATS PER MINUTE. GUSTAFSON CATHETER ATTACHED DRAINING URINE. BILATERAL WRIST RESTRAINTS NOTED. NASOGASTRIC TUBE NOTED, MARKED AT 65 INCHES, RUNNING GLUCERNA AT 50 MLS/HR, TOLERATING WELL EVIDENCED B LOW RESIDUAL. RIGHT JUGULAR HEMODIALYSIS CATHETER NOTED. IV ACCESS ON RIGHT UPPER ARM MIDLINE, PATENT AND FLUSHING WITH NO RESISTANCE. SAFETY MEASURES IMPLEMENTED, BED IN LOWEST LOCKED POSITION, SIDE RAILS UP, CALL BUTTON WITHIN REACH. WILL CONTINUE PLAN OF CARE AND ANTICIPATE NEEDS.
[2021-11-13 07:39] LABS: CALCIUM, SERUM 8.1 mg/dL (8.5-10.1); CARBON DIOXIDE 25 mmol/L (21-32); CHLORIDE 106 mmol/L (98-107); GLUCOSE 300 mg/dL (74-106); MAGNESIUM 2.1 mg/dL (1.8-2.4); PHOSPHORUS 4.3 mg/dL (2.5-4.9); SODIUM SERUM 138 mmol/L (136-145); UREA NITROGEN, BLOOD 44 mg/dL (7-18)
[2021-11-13] MEDS: LEVOTHYROXINE SODIUM 25 MCG TABLET GT SCH (07:44)
[2021-11-13] MEDS: BLOOD SUGAR DIAGNOSTIC 1 EACH STRIP IN SCH ×4 (07:44→21:41)
[2021-11-13 07:48] LABS: CREATININE 2.4 mg/dL (0.6-1.3)
[2021-11-13 08:00] VITALS: BP 124/76
[2021-11-13] MEDS: INSULIN REGULAR, HUMAN 100 UNIT/ML 3 ML VIAL SQ PRN ×3 (08:05→17:30)
[2021-11-13] MEDS: ASCORBIC ACID 500 MG TABLET GT SCH ×2 (09:07→17:06)
[2021-11-13] MEDS: LEVETIRACETAM SOL (5 ML) 100 MG/ML UDC GT SCH ×2 (09:07→21:36)
[2021-11-13] MEDS: ASPIRIN 81 MG TAB.CHEW GT SCH (09:07)
[2021-11-13] MEDS: PANTOPRAZOLE 40 MG/PACK PACK NG SCH (09:07)
[2021-11-13] MEDS: HYDROXYUREA 500 MG CAPSULE GT SCH (09:07)
[2021-11-13] MEDS: AMIODARONE HCL 200 MG TABLET GT SCH (09:07)
[2021-11-13] MEDS: MIDODRINE HCL (5MG) 5 MG TABLET GT SCH ×3 (09:07→17:06)
[2021-11-13] MEDS: Z GUARD REMEDY 4 OZ OINT TP SCH (09:08)
[2021-11-13] MEDS: ALBUMIN 25% 25 GM in PREMIX 1 EA IV PRN (11:04)
[2021-11-13 12:00] VITALS: BP 106/53
[2021-11-13] MEDS: GLUCERNA 1.2 1,000 ML BOTTLE NG PRN (14:13)
[2021-11-13 16:00] VITALS: BP 115/52
[2021-11-13] MEDS: GABAPENTIN 100 MG CAPSULE GT SCH (17:06)
--- NOTE | 2021-11-13 18:52 | NUR ---
RN CLOSING NOTE PATIENT IN BED ON 4 LITERS NASAL CANULA, OXYGEN SATURATION AT 95%. PATIENT IS ALERT AND ORIENTED TIMES 1, NONVERBAL. ATTACHED TO EXTERNAL SPOUT LINER READING SINUS TACHYCARDIA AT 107 BEATS PER MINUTE. GUSTAFSON CATHETER ATTACHED DRAINING URINE. BILATERAL WRIST RESTRAINTS NOTED. NASOGASTRIC TUBE NOTED, MARKED AT 65 INCHES, RUNNING GLUCERNA AT 50 MLS/HR, TOLERATING WELL EVIDENCED B LOW RESIDUAL. RIGHT JUGULAR HEMODIALYSIS CATHETER NOTED. IV ACCESS ON RIGHT UPPER ARM MIDLINE, PATENT AND FLUSHING WITH NO RESISTANCE. SAFETY MEASURES IMPLEMENTED, BED IN LOWEST LOCKED POSITION, SIDE RAILS UP, CALL BUTTON WITHIN REACH. ALL DUE MEDICATIONS ADMINISTERED, KEPT CLEAN AND DRY THROUGHOUT SHIFT. WILL ENDORSE TO NIGHTSHIFT RN FOR CONTINUATION OF CARE.
--- NOTE | 2021-11-13 19:30 | NUR ---
RN NOTE RECEIVED PATIENT IN BED, LETHARGIC, IN NO ACUTE DISTRESS AT THIS TIME, BREATHING APPEARS LABORED, SATURATION AT 98% ON 24 VIA NC, SR ON THE MONITOR HR IS 96. NG TUBE AT R NARE IN PLACE AT 65 CM, POSITIVE PLACEMENT CONFIRMED BY ASPIRATION AND AUSCULTATION, 10 ML RESIDUAL NOTED, TUBE FEEDING OF GLUCERNA INFUSING AT 50 ML/HR. EMMANUELLE MIDLINE PATENT AND FLUSHING WELL, R JUGULAR HD CATH INTACT, NO S/S OF INFECTION OR BLEEDING. GUSTAFSON CATH DRAINING TO A CLEAR, YELLOW OUTPUT. B SOFT WRIST RESTRAINTS IN PLACE, SKIN AND CIRCULATION WERE CHECKED AND ARE WNL. SAFETY MEASURES IMPLEMENTED. PATIENT BED ALARM IS ON. HEAD OF BED ELEVATED. BED IS LOCKED, IN LOWEST POSITION AND SIDE RAILS UP. CALL LIGHT WITHIN REACH OF THE PATIENT. WILL CONTINUE TO MONITOR AND REASSESS FOR ANY CHANGES.
[2021-11-13 20:00] VITALS: BP 136/58
[2021-11-13] MEDS: ATORVASTATIN 10 MG TABLET GT SCH (21:36)
[2021-11-13] MEDS: *INSULIN REGULAR(HUMULIN R)HUM 100 UNIT/ML VIAL SQ PRN (21:52)
[2021-11-14] VITALS: BP 134/52
[2021-11-14 04:00] VITALS: BP 136/55
--- NOTE | 2021-11-14 07:30 | NUR ---
ACCOUNT ADMINISTRATOR OPENING NOTES RECEIVED PATIENT ON BED AWAKE AND A/O X1, LETHARGIC. ON O2 AT 4LPM VIA NASAL CANNULA TOLERATING WELL. NOT IN DISTRESS. ON TELE MONITOR CURRENTLY READING SINUS RHYTHM [id number]. WITH GUSTAFSON CATHETER IN PLACED. WITH IV ACCESS AT THE RIGHT UPPER MIDLINE AND AT RIGHT JUGULAR HD ACCESS WITH DRY AND INTACT DRESSING. ON GLUCERNA FEEDING AT 50ML/HR VIA G-TUBE TOLERATING WELL. SAFETY MEASURES IN PLACED. CALL LIGHT WITHIN REACH. BED ON LOWEST LOCKED POSITION, SIDE RAILS UP X2. WILL CONTINUE TO MONITOR.
[2021-11-14 08:00] VITALS: BP 96/45
[2021-11-14] MEDS: INSULIN REGULAR, HUMAN 100 UNIT/ML 3 ML VIAL SQ PRN ×3 (08:48→17:26)
[2021-11-14] MEDS: BLOOD SUGAR DIAGNOSTIC 1 EACH STRIP IN SCH ×4 (08:50→21:09)
[2021-11-14] MEDS: PANTOPRAZOLE 40 MG/PACK PACK NG SCH (08:51)
[2021-11-14] MEDS: LEVETIRACETAM SOL (5 ML) 100 MG/ML UDC GT SCH ×2 (08:51→21:08)
[2021-11-14] MEDS: ASPIRIN 81 MG TAB.CHEW GT SCH (08:51)
[2021-11-14] MEDS: HYDROXYUREA 500 MG CAPSULE GT SCH (08:51)
[2021-11-14] MEDS: LEVOTHYROXINE SODIUM 25 MCG TABLET GT SCH (08:51)
[2021-11-14] MEDS: ASCORBIC ACID 500 MG TABLET GT SCH ×2 (08:51→17:00)
[2021-11-14] MEDS: Z GUARD REMEDY 4 OZ OINT TP SCH (08:52)
[2021-11-14] MEDS: AMIODARONE HCL 200 MG TABLET GT SCH (08:52)
[2021-11-14] MEDS: MIDODRINE HCL (5MG) 5 MG TABLET GT SCH ×3 (08:53→17:00)
[2021-11-14 12:00] VITALS: BP 96/45
[2021-11-14] MEDS ORDERED: EPOETIN ALFA-EPBX 4,000 UNIT/ML VIAL IV SCH (13:00)
[2021-11-14] MEDS: GLUCERNA 1.2 1,000 ML BOTTLE NG PRN (14:22)
--- NOTE | 2021-11-14 15:06 | NUR ---
telephoto installer note received call t from Vito ayala rail track layer to get consent for peg placement and start on npo ,order carried out
[2021-11-14 16:00] VITALS: BP 129/52
[2021-11-14] MEDS ORDERED: TRULICITY 1.5 MG/0.5 ML SQ SCH (16:59)
[2021-11-14] MEDS: GABAPENTIN 100 MG CAPSULE GT SCH (17:00)
--- NOTE | 2021-11-14 18:32 | NUR ---
MANAGER ENGINE CLOSING NOTES PATIENT ON BED AWAKE AND A/O X1, LETHARGIC. ON O2 AT 4LPM VIA NASAL CANNULA TOLERATING WELL. NOT IN DISTRESS. ON TELE MONITOR CURRENTLY READING SINUS RHYTHM AT 93BPM. WITH GUSTAFSON CATHETER IN PLACED. WITH IV ACCESS AT THE RIGHT UPPER MIDLINE AND AT RIGHT JUGULAR HD ACCESS WITH DRY AND INTACT DRESSING. ON GLUCERNA FEEDING AT 50ML/HR VIA G-TUBE TOLERATING WELL. DUE MEDS GIVEN. SAFETY MEASURES IN PLACED. CALL LIGHT WITHIN REACH. BED ON LOWEST LOCKED POSITION, SIDE RAILS UP X2. WILL ENDORSE TO NEXT SHIFT FOR RADHA.
--- NOTE | 2021-11-14 19:30 | NUR ---
RN OPENING NOTE RECEIVED PATIENT RESTING IN BED. AWAKE, ALERT AND ORIENTED TO NAME. NO S/SX OF PAIN NOTED AT THIS TIME. CONTINUES ON O2 4L VIA NC WITH NO S/SX OF RESPIRATORY DISTRESS NOTED. IV ACCESS TO RIGHT UPPER ARM MIDLINE #18G INTACT, PATENT AND SALINE LOCKED. RIGHT JUGULAR VEIN HD ACCESS IN PLACE WITH DRESSING C/D/I. CONTINUES ON TELE MONITOR WITH CURRENT READING SR. NG TUBE IN PLACE TO RIGHT NARE WITH GLUCERNA RUNNING AT 50ML/HR. TUBE FEED TO BE TURNED OFF AT MIDNIGHT FOR PLANNED PEG PLACEMENT IN AM. CONSENTS IN CHART. CONTINUES ON BILATERAL SOFT WRIST RESTRAINTS WITH NO S/SX OF CIRCULATION OR SKIN ISSUES. CALL LIGHT WITHIN REACH. ASPIRATION, FALL AND SAFETY PRECAUTIONS MAINTAINED. ALL NEEDS ATTENDED TO AT THIS TIME.
[2021-11-14 19:57] LABS: BASOPHILS # (AUTO) 0.1 K/uL (0.0-0.2); BASOPHILS % (AUTO) 0.5 % (0.0-2.0); EOSINOPHILS % (AUTO) 8.5 % (0.0-6.0); HEMATOCRIT 21 % (33-45); LYMPHOCYTES # (AUTO) 1.6 K/uL (0.8-4.8); LYMPHOCYTES % (AUTO) 13.6 % (20.0-44.0); MEAN CORPUSCULAR HGB CONC 33 g/dl (31.0-36.0); MEAN CORPUSCULAR VOLUME 98 fL (82-100); MONOCYTES # (AUTO) 0.5 K/uL (0.1-1.30); NEUTROPHILS # (AUTO) 8.4 K/uL (1.8-8.9); NEUTROPHILS % (AUTO) 73.4 % (43.0-81.0); PLATELET COUNT (AUTO) 248 K/uL (150-450); RED BLOOD CELL COUNT(AUTO) 2.08 MIL/uL (4.0-5.2); WHITE BLOOD COUNT (AUTO) 11.4 K/uL (4.3-11.0)
[2021-11-14 20:00] VITALS: BP 150/55
[2021-11-14 20:13] LABS: HEMOGLOBIN 6.8 g/dL (11.5-14.8)
--- NOTE | 2021-11-14 20:21 | NUR ---
RN NOTE RECEIVED CRITICAL LAB VALUE FOR HGB 6.8 AND HCT 21. NO VISUAL S/SX OF BLEEDING NOTED. NOTIFIED TECHNOLOGY RECRUITER MD FUENTES. AWAITING RESPONSE.
[2021-11-14] MEDS ORDERED: IV D5/ 0.9% NACL 1,000 ML IV PRN (20:30)
--- NOTE | 2021-11-14 20:35 | NUR ---
GOSIA NOTE CONSENT FOR BLOOD TRANSFUSION IN CHART SIGNED 11/14. Addendum: 11/14/21 at 6 by JORJE EDGAR RN Amended: Links added.
--- NOTE | 2021-11-14 20:37 | NUR ---
RN NOTE DR. FUENTES RESPONDED WITH NEW ORDERS FOR 1 UNIT PRBC AND D5NS @ 45ML/HR. ORDERS INPUTTED AND CARRIED OUT.
[2021-11-14 20:51] LABS: BAND % (MANUAL) 15 % (0.0-5.0); EOSINOPHILS % (MANUAL) 6 % (0-4); LYMPHOCYTES % (MANUAL) 11 % (16-48); METAMYELOCYTES % 1 % (0-0); MONOCYTES % (MANUAL) 2 % (0-11.0); NEUTROPHILS % (MANUAL) 65 (42-76)
[2021-11-14] MEDS: ATORVASTATIN 10 MG TABLET GT SCH (21:08)
--- NOTE | 2021-11-14 21:15 | NUR ---
RN NOTE RECEIVED CALL FROM AIDEE WOODSON STATING THE DOCTOR HAS TO SIGN THE BLOOD TRANSFUSION CONSENT FORM IN ORDER TO BE ABLE TO NUTRITION SERVICES WORKER BLOOD. INFORMED ELECTRICAL SUPERINTENDENT DR. FUENTES WHO STATES SHE WILL BE ON THE UNIT BY MIDNIGHT TO SIGN CONSENT.
--- NOTE | 2021-11-14 21:30 | NUR ---
RN NOTE PATIENTS BLOOD SUGAR IS 252. PATIENT IS NPO POST MIDNIGHT FOR PLANNED PROCEDURE IN AM. NOTIFIED HAND MEAT SALTER MD FUENTES WITH ORDER TO HOLD INSULIN SLIDING SCALE TONIGHT.
[2021-11-15] VITALS (20 sets, daily range): BP systolic 111–153; BP diastolic 48–74
--- NOTE | 2021-11-15 00:45 | NUR ---
RN NOTE SEARCH MARKETING SPECIALIST MD NOT ON UNIT YET. CONTACTED DR. FUENTES AGAIN WHO STATES SHE WILL BE HERE SOON TO SIGN CONSENT FOR BLOOD TRANSFUSION.
--- NOTE | 2021-11-15 01:30 | NUR ---
RN NOTE MD FUENTES ON UNIT TO SIGN BLOOD TRANSFUSION CONSENT.
--- NOTE | 2021-11-15 01:45 | NUR ---
RN NOTE PER CLS BLOOD PRODUCT IS NOT READY YET. WILL NOTIFY RN WHEN AVAILABLE FOR VET TECH.
--- NOTE | 2021-11-15 02:25 | NUR ---
RN NOTE STARTED TRANSFUSION OF 1 UNIT PRBC AT APPROX. 0220 WITH NO S/SX OF ADVERSE EFFECTS.
--- NOTE | 2021-11-15 05:20 | NUR ---
TELE/RN NOTE PATIENT COMPLETED BLOOD TRANSFUSION WITH NO ADVERSE REACTIONS NOTED. LAB WORK TO BE DRAWN THIS AM POST TRANSFUSION. PATIENT REMAINS NPO WITH TUBE FEEDING OFF FOR PLANNED PROCEDURE TODAY.
--- NOTE | 2021-11-15 06:43 | NUR ---
RN CLOSING NOTE PATIENT CURRENTLY RESTING IN BED. AWAKE, ALERT AND ORIENTED TO NAME. NO S/SX OF PAIN NOTED AT THIS TIME. CONTINUES ON O2 4L VIA NC WITH NO S/SX OF RESPIRATORY DISTRESS NOTED. IV ACCESS TO RIGHT UPPER ARM MIDLINE #18G INTACT, PATENT AND SALINE LOCKED. RIGHT JUGULAR VEIN HD ACCESS IN PLACE WITH DRESSING C/D/I. CONTINUES ON TELE MONITOR WITH CURRENT READING SR. NG TUBE IN PLACE TO RIGHT NARE - GLUCERNA TUBE FEED STOPPED AT 0000 FOR PLANNED PEG PLACEMENT TODAY. CONSENTS IN CHART. CONTINUES ON BILATERAL SOFT WRIST RESTRAINTS WITH NO S/SX OF CIRCULATION OR SKIN ISSUES. CALL LIGHT WITHIN REACH. ASPIRATION, FALL AND SAFETY PRECAUTIONS MAINTAINED. ALL NEEDS ATTENDED TO AT THIS TIME.
--- NOTE | 2021-11-15 07:28 | NUR ---
fingerstick blood glucose 404. notified dr. arevalo
[2021-11-15] MEDS: LEVOTHYROXINE SODIUM 25 MCG TABLET GT SCH (07:30)
--- NOTE | 2021-11-15 07:30 | NUR ---
blood sugar checked with 101 stat lab drawn 417 give 12 units /sq as ordered per DR.RONALD DE LEON also notified to OR patient on npo status per PEG placement at -
--- NOTE | 2021-11-15 07:30 | NUR ---
earth burner opening note patient currently sleeping, easily arousable. patient is alert and oriented x1-2.no signs or symptoms pain. patient on 02 4l via nasal cannula.patient has labored breathing. patient has iv access to right upper arm midline.iv patent and flushing well. patient has right jugular vein hd access in place. patient has ng tube in right nare. glucerna feeding stopped due to possible peg tube placement. patient on bilateral soft wrist restraints.release circulation every 2 hours to assess. all safety measures in place. call light within reach.bed locked in lowest position.bedside table next to patient. side rails up x2. will continue to assess throughout shift
[2021-11-15 07:47] LABS: BASOPHILS % (AUTO) 0.4 % (0.0-2.0); HEMATOCRIT 25 % (33-45); HEMOGLOBIN 8.5 g/dL (11.5-14.8); LYMPHOCYTES # (AUTO) 1.1 K/uL (0.8-4.8); MEAN CORPUSCULAR HGB CONC 34 g/dl (31.0-36.0); MEAN CORPUSCULAR VOLUME 94 fL (82-100); MONOCYTES # (AUTO) 0.5 K/uL (0.1-1.30); MONOCYTES % (AUTO) 5.7 % (2.0-12.0); NEUTROPHILS # (AUTO) 7.4 K/uL (1.8-8.9); NEUTROPHILS % (AUTO) 76.9 % (43.0-81.0); PLATELET COUNT (AUTO) 254 K/uL (150-450); RED BLOOD CELL COUNT(AUTO) 2.67 MIL/uL (4.0-5.2); WHITE BLOOD COUNT (AUTO) 9.6 K/uL (4.3-11.0)
[2021-11-15] MEDS: BLOOD SUGAR DIAGNOSTIC 1 EACH STRIP IN SCH ×4 (07:51→22:10)
[2021-11-15 08:01] LABS: CALCIUM, SERUM 8.1 mg/dL (8.5-10.1); CARBON DIOXIDE 27 mmol/L (21-32); CHLORIDE 101 mmol/L (98-107); CREATININE 1.8 mg/dL (0.6-1.3); PHOSPHORUS 4.1 mg/dL (2.5-4.9); POTASSIUM 5.6 mmol/L (3.5-5.1); SODIUM SERUM 137 mmol/L (136-145); UREA NITROGEN, BLOOD 41 mg/dL (7-18)
[2021-11-15 08:07] LABS: GLUCOSE 417 mg/dL (74-106)
[2021-11-15] MEDS: INSULIN REGULAR, HUMAN 100 UNIT/ML 3 ML VIAL SQ PRN ×2 (08:17→11:07)
[2021-11-15] MEDS: PANTOPRAZOLE 40 MG/PACK PACK NG SCH (09:00)
[2021-11-15] MEDS: LEVETIRACETAM SOL (5 ML) 100 MG/ML UDC GT SCH ×2 (09:00→21:37)
[2021-11-15] MEDS: MIDODRINE HCL (5MG) 5 MG TABLET GT SCH ×3 (09:00→17:11)
[2021-11-15] MEDS: HYDROXYUREA 500 MG CAPSULE GT SCH (09:00)
[2021-11-15] MEDS: AMIODARONE HCL 200 MG TABLET GT SCH (09:00)
[2021-11-15] MEDS: ASCORBIC ACID 500 MG TABLET GT SCH ×2 (09:00→17:11)
[2021-11-15] MEDS: ASPIRIN 81 MG TAB.CHEW GT SCH (09:00)
--- NOTE | 2021-11-15 09:29 | NUR ---
o2 destuarting to 84%, elevated head of bed, nasal cannula via 5L. dr. smallwood said to hold surgery due to not stable condition of patient and order arterial blood gas
[2021-11-15 09:36] LABS: ABG BASE EXCESS -2.4 mmol/L; ABG OXYGEN SATURATION 93.1 % (92.0-98.5); ABG PH 7.386 (7.350-7.450); ABG PO2 68.2 mmHg (75.0-100.0); AaDO2 173.3 mmHg; COHb 1.4 % (0.5-1.5); MetHb 0.1 % (0.0-1.5); O2Hb 91.7 % (94.0-97.0); SITE, ABG Left Radial; VENT MODE, BG NASAL CANNULA
--- NOTE | 2021-11-15 09:37 | NUR ---
patient was ready for surgery pickup. dr. smallwood made rounds and said to cancel surgery due to not stability and to order arterial blood gas. will followup
--- NOTE | 2021-11-15 10:49 | NUR ---
WOUND CARE CONSULT: PT SEEN FOR SACRAL DEEP TISSUE INJURY WHICH IS IN EVOLUTION WELL INTACT DEEP TISSUE INJURIES TO HEELS. PT NOTED TO HAVE MULTIPLE CO-MORBIDITIES INCLUDING SEPSIS, NON ST ELEVATION M.I., ANEMIA, PNEUMONIA, HEART FAILURE, SEIZURE DISORDER, METABOLIC ACIDOSIS, RENAL FAILURE (NOW STARTED ON HEMODIALYSIS). DUE TO MULTIPLE CO-MORBIDITIES, FURTHER SKIN BREAKDOWN MAY BE UNAVOIDABLE. PT IS ON FIRST STEP CIRRUS LOW AIRLOSS MATTRESS. ALL SKIN PROTECTION AND WOUND CARE RECOMMENDATIONS DISCUSSED WITH NURSING STAFF. PT HAS BEEN FOLLOWED BY PLASTIC SURGERY TEAM. IN AGREEMENT WITH PLAN OF CARE.
--- NOTE | 2021-11-15 11:00 | NUR ---
dr. smallwood saw patient. dr. smallwood said patient unstable for surgery and to order arterial blood gas. ordered chem 7, lactic acid and chest x-ray. also said to clarify code status with family. called family.patient is full code. dr. smallwood said if patient is still tachyonic and full code to transfer to ICU.
--- NOTE | 2021-11-15 11:00 | NUR ---
rechecked blood sugar 309. notfied said to give 10 units of insulin. adminstered 10 units
--- NOTE | 2021-11-15 11:33 | NUR ---
dr. arevalo said to transfer to ICU. patient remains unstable
[2021-11-15] MEDS: Z GUARD REMEDY 4 OZ OINT TP SCH (11:41)
[2021-11-15] MEDS ORDERED: SODIUM POLYSTYRENE SULFONATE 15 G/60 ML BOTTLE NG ONE (12:00)
[2021-11-15 12:14] LABS: MAGNESIUM 2.2 mg/dL (1.8-2.4); PHOSPHORUS 4.1 mg/dL (2.5-4.9)
[2021-11-15] MEDS ORDERED: BUMETANIDE INJ 6 MG in IV D5W 36 ML IV ONE (15:00)
[2021-11-15 15:36] LABS: BILIRUBIN,DIRECT 0.3 mg/dL (0.0-0.2); BILIRUBIN,TOTAL 0.9 mg/dL (0.2-1.0)
[2021-11-15] MEDS: GABAPENTIN 100 MG CAPSULE GT SCH (17:11)
[2021-11-15] MEDS: ALBUMIN 25% 25 GM in PREMIX 1 EA IV PRN (17:34)
--- NOTE | 2021-11-15 19:05 | NUR ---
RN OPENING NOTES RECEIVED PATIENT ON BED, A/O X 1, RESPONSE TO NAME, ON NASAL CANULA @ 4 LPM SATING AT96%. RESPIRATORY EVEN AND UNLABORED, NO SOB NOTED. WITH ON GOING HEMODIALYSIS, PROCEDURE TOLERATED WELL, VITAL SIGN WITH IN NORMAL LIMITS. PATIENT WITH EMMANUELLE MID LINE, FLUSHED WITH NS, NO S/S OF INFILTRATION NOTED AT SITE. RIGHT IJ FOR HEMODIALYSIS, NO ACTIVE BLEEDING AT SITE. GUSTAFSON CATHETER INTACT, INFUSING WELL WITH CLEAR YELLOW URINE OUTPUT VIA GRAVITY. REPOSITION Q2HRS. ALL SAFETY PRECAUTION PROVIDED. BED IN LOWEST POSITION, LOCKED, BED ALARM ARMED. CONTINUE TO MONITOR.
[2021-11-15] MEDS: ATORVASTATIN 10 MG TABLET GT SCH (21:37)
--- NOTE | 2021-11-15 22:10 | NUR ---
RN NOTES BLOOD SUGAR 113 mg/dL, NO INSULIN COVERAGE PER SLIDING SCALE. NO S/S OF HYPOGLYCEMIA NOTED. CONTINUE TO MONITOR
[2021-11-15] MEDS: *INSULIN REGULAR(HUMULIN R)HUM 100 UNIT/ML VIAL SQ PRN (22:43)
--- NOTE | 2021-11-15 23:30 | NUR ---
RN NOTES RECEIVED TELEPHONE ORDER FROM DR. FUENTES, KEEP PATIENT ON NPO AND CHANGED SLIDING SCALE TO MILD SLIDING SCALE Q6HRS NOTED AND CARRIED OUT.
[2021-11-16] VITALS (24 sets, daily range): BP systolic 83–142; BP diastolic 46–71
[2021-11-16 04:37] LABS: BASOPHILS # (AUTO) 0.1 K/uL (0.0-0.2); BASOPHILS % (AUTO) 0.6 % (0.0-2.0); EOSINOPHILS % (AUTO) 5.8 % (0.0-6.0); HEMATOCRIT 25 % (33-45); HEMOGLOBIN 8.5 g/dL (11.5-14.8); LYMPHOCYTES # (AUTO) 1.6 K/uL (0.8-4.8); LYMPHOCYTES % (AUTO) 14.6 % (20.0-44.0); MEAN CORPUSCULAR HGB CONC 34 g/dl (31.0-36.0); MEAN CORPUSCULAR VOLUME 93 fL (82-100); MONOCYTES # (AUTO) 0.7 K/uL (0.1-1.30); MONOCYTES % (AUTO) 6.1 % (2.0-12.0); NEUTROPHILS % (AUTO) 72.9 % (43.0-81.0); PLATELET COUNT (AUTO) 266 K/uL (150-450); RED BLOOD CELL COUNT(AUTO) 2.72 MIL/uL (4.0-5.2); WHITE BLOOD COUNT (AUTO) 10.9 K/uL (4.3-11.0)
[2021-11-16 05:19] LABS: BAND % (MANUAL) 4 % (0.0-5.0); EOSINOPHILS % (MANUAL) 3 % (0-4); LYMPHOCYTES % (MANUAL) 15 % (16-48); MONOCYTES % (MANUAL) 4 % (0-11.0)
[2021-11-16 05:20] LABS: NEUTROPHILS % (MANUAL) 74 (42-76)
[2021-11-16 05:24] LABS: CALCIUM, SERUM 8.1 mg/dL (8.5-10.1); CARBON DIOXIDE 31 mmol/L (21-32); CHLORIDE 99 mmol/L (98-107); CREATININE 1.6 mg/dL (0.6-1.3); GLUCOSE 242 mg/dL (74-106); MAGNESIUM 1.8 mg/dL (1.8-2.4); PHOSPHORUS 4.3 mg/dL (2.5-4.9); POTASSIUM 3.4 mmol/L (3.5-5.1); SODIUM SERUM 138 mmol/L (136-145); UREA NITROGEN, BLOOD 29 mg/dL (7-18)
[2021-11-16] MEDS ORDERED: DEXTROSE 50%-WATER 50 ML DISP.SYRIN IV PRN (06:00)
[2021-11-16] MEDS: BLOOD SUGAR DIAGNOSTIC 1 EACH STRIP IN SCH ×3 (06:16→18:12)
[2021-11-16] MEDS: INSULIN REGULAR, HUMAN 100 UNIT/ML 3 ML VIAL SQ PRN ×2 (06:20→11:33)
--- NOTE | 2021-11-16 07:08 | NUR ---
RN NOTES PATIENT REMAIN STABLE THROUGH OUT THE SHIFT. RESPIRATORY EVEN AND UNLABORED, NO SOB NOTED. RIGHT IJ FOR HEMODIALYSIS, NO ACTIVE BLEEDING AT SITE. GUSTAFSON CATHETER INTACT, INFUSING WELL WITH CLEAR YELLOW URINE OUTPUT VIA GRAVITY. ALL DUE MEDS GIVEN. REPOSITION Q2HRS. BILATERAL SOFT WRIST RESTRAINT RELEASE Q 2HRS FOR CIRCULATION CHECKED. ALL SAFETY PRECAUTION PROVIDED. BED IN LOWEST POSITION, LOCKED, BED ALARM ARMED. REPORT GIVEN TO MORNING SHIFT NURSE FOR CONTINUITY OF CARE.
--- NOTE | 2021-11-16 07:25 | NUR ---
ICU/RN PT RECEIVED AWAKE AND ALERT RESPONSIVE TO NAME BUT SPEECH IS UNCLEAR ABLE TO ANSWER YES AND NO. BREATHING IS EVEN AND UNLABORED NO S/S OF RESPIRATORY DISTRESS CONTINUES TO BE ON 4L NC SATS 100%. GUSTAFSON CATHETER PATENT AND DRAINING LIGHT YELLOW URINE 1 BM INDORSED, AM CARE PROVIDED. HD COMPLETED YESTERDAY SCHEDULED FOR HD TODAY. POTASSIUM LOWER TODAY 3.4 WILL FOLLOW UP WITH PROVIDER. EMMANUELLE MIDLINE PATENT RUNNING FLUID TKO. RIJ NO SIGNS OF BLEEDING FROM SITE. BED LOCKED HEELS FLOATING V/S STABLE NO S/S OF DISTRESS OR DECOMPENSATION.
[2021-11-16] MEDS: HYDROXYUREA 500 MG CAPSULE GT SCH (08:14)
[2021-11-16] MEDS: LEVETIRACETAM SOL (5 ML) 100 MG/ML UDC GT SCH ×2 (08:14→21:31)
[2021-11-16] MEDS: ASCORBIC ACID 500 MG TABLET GT SCH ×2 (08:16→16:58)
[2021-11-16] MEDS: AMIODARONE HCL 200 MG TABLET GT SCH (08:17)
[2021-11-16] MEDS: Z GUARD REMEDY 4 OZ OINT TP SCH (08:18)
[2021-11-16] MEDS: PANTOPRAZOLE 40 MG/PACK PACK NG SCH (08:18)
[2021-11-16] MEDS: ASPIRIN 81 MG TAB.CHEW GT SCH (08:18)
[2021-11-16] MEDS: MIDODRINE HCL (5MG) 5 MG TABLET GT SCH ×3 (08:18→16:58)
[2021-11-16] MEDS: LEVOTHYROXINE SODIUM 25 MCG TABLET GT SCH (08:28)
[2021-11-16] MEDS: ALBUMIN 25% 25 GM in PREMIX 1 EA IV PRN (10:01)
--- NOTE | 2021-11-16 11:00 | NUR ---
RT 0800 ABG CANCELLED FOR BEING A DUPLICATE
[2021-11-16 14:28] LABS: ABG BASE EXCESS 4.5 mmol/L; ABG OXYGEN SATURATION 94.6 % (92.0-98.5); ABG PCO2 45.1 mmHg (35.0-45.0); ABG PH 7.431 (7.350-7.450); ABG PO2 76.8 mmHg (75.0-100.0); AaDO2 69.6 mmHg; COHb 0.5 % (0.5-1.5); MetHb 0.6 % (0.0-1.5); O2Hb 93.6 % (94.0-97.0); SITE, ABG Right Radial; VENT MODE, BG 2L NC
--- NOTE | 2021-11-16 15:00 | NUR ---
RETAIL GREETING CARD MERCHANDISER NOTE RECEIVED PATIENT IN BED RESTING ALERT ORIENTED X1 ON 2L OXYGEN VIA NASAL CANNULA O2:95% IV SITE IS ON RIGHT UPPER ARM MIDLINE AND R IJ HD CATH INTACT PATENT,GUSTAFSON CATH IN PLACE URINE DRAINING YELLOW AND CLEAR BY GRAVITY,SOFT BILATERAL WRIST RESTRAIN IN PLACE WILL CHECK EVERY 15 MINS FOR SKIN BREAKDOWN AND CIRCULATION,SAFETY MEASURE IMPLEMENT BED IN LOW POSITION AND LOCKED,HEAD OF THE HEAD ELEVATED,CONTINUE TO MONITOR.
[2021-11-16] MEDS ORDERED: APIXABAN 2.5 MG TABLET PO SCH (17:30)
[2021-11-16] MEDS: GABAPENTIN 100 MG CAPSULE GT SCH (18:03)
--- NOTE | 2021-11-16 19:05 | NUR ---
RN OPENING NOTES RECEIVED PATIENT ON BED, A/O X 1, RESPONSE TO NAME, ON NASAL CANULA @ 4 LPM SATING AT96%. RESPIRATORY EVEN AND UNLABORED, NO SOB NOTED. PATIENT WITH EMMANUELLE MID LINE, FLUSHED WITH NS, NO S/S OF INFILTRATION NOTED AT SITE. RIGHT IJ FOR HEMODIALYSIS, NO ACTIVE BLEEDING AT SITE. NGT INSERTED NO RIGHT NARE, INTACT, VERIFIED PLACEMENT BY AUSCULTATION, NO RESIDUAL NOTED. GUSTAFSON CATHETER INTACT, INFUSING WELL WITH CLEAR YELLOW URINE OUTPUT VIA GRAVITY. REPOSITION Q2HRS. BILATERAL SOFT WRIST RESTRAINT REASSESSED Q2HRS FOR CIRCULATION. ALL SAFETY PRECAUTION PROVIDED. BED IN LOWEST POSITION, LOCKED, BED ALARM ARMED. CONTINUE TO MONITOR.
--- NOTE | 2021-11-16 19:10 | NUR ---
RN NOTE PATIENT REMAINS ON ALERT ORIENTED X1 NONVERBAL NO SOB NOT ACUTE DISTRESS NOTED,RECEIVED FEEDING TUBE ORDER NEPHRO 1.8 30CC/H FOR 24HRS.SAFETY MEASURE IMPLEMENTED,HEAD OF THE BED ELEVATED ALL THE TIME,ALL DUE MEDS GIVEN MD ORDERED ENDORSE NEXT COMING SHIFT FOR CONTINUATION OF CARE.
--- NOTE | 2021-11-16 19:30 | NUR ---
RN NOTES STARTED TUBE FEEDING NEPHRO 1.8 @ 30 ML/HR. PER MD'S ORDER. NGT INTACT, VERIFIED PLACEMENT BY AUSCULTATION, NO RESIDUAL NOTED. CONTINUE TO MONITOR FOR ANY ADVERSE REACTION.
[2021-11-16] MEDS: NEPRO 1,000 ML BOTTLE GT PRN (19:32)
[2021-11-16] MEDS: ATORVASTATIN 10 MG TABLET GT SCH (21:31)
[2021-11-17] VITALS (24 sets, daily range): BP systolic 112–134; BP diastolic 28–57
[2021-11-17] MEDS: BLOOD SUGAR DIAGNOSTIC 1 EACH STRIP IN SCH ×5 (00:10→23:49)
[2021-11-17] MEDS: INSULIN REGULAR, HUMAN 100 UNIT/ML 3 ML VIAL SQ PRN ×5 (00:11→23:55)
[2021-11-17] MEDS: IV NS 0.9% 250 ML IV PRN (04:29)
--- NOTE | 2021-11-17 06:30 | NUR ---
RN NOTES HEMODIALYSIS STARTED, V/S WITH IN NORMAL LIMITS.
--- NOTE | 2021-11-17 07:11 | NUR ---
RN NOTES PATIENT AWAKE, WITH ON GOING HEMODIALYSIS. RESPIRATORY EVEN AND UNLABORED, NO SOB NOTED. NGT INTACT, VERIFIED PLACEMENT BY AUSCULTATION, NO RESIDUAL NOTED, RUNNING WITH NEPHRO 1.8 @ 30ML/HR. GUSTAFSON CATHETER INTACT, INFUSING WELL WITH CLEAR YELLOW URINE OUTPUT VIA GRAVITY. REPOSITION Q2HRS. BILATERAL SOFT WRIST RESTRAINT REASSESSED Q2HRS FOR CIRCULATION. ALL DUE MEDS GIVEN. ALL SAFETY PRECAUTION PROVIDED. BED IN LOWEST POSITION, LOCKED, BED ALARM ARMED. REPORT GIVEN TO MORNING SHIFT NURSE FOR CONTINUITY OF CARE.
[2021-11-17 07:12] LABS: CALCIUM, SERUM 8.5 mg/dL (8.5-10.1); CARBON DIOXIDE 31 mmol/L (21-32); CHLORIDE 99 mmol/L (98-107); CREATININE 2.1 mg/dL (0.6-1.3); GLUCOSE 301 mg/dL (74-106); POTASSIUM 2.9 mmol/L (3.5-5.1); SODIUM SERUM 137 mmol/L (136-145); UREA NITROGEN, BLOOD 48 mg/dL (7-18)
[2021-11-17] MEDS: LEVOTHYROXINE SODIUM 25 MCG TABLET GT SCH (07:24)
--- NOTE | 2021-11-17 07:30 | NUR ---
RN NOTES PT FOUND DISPLAYING NO S/S OF DISTRESS, FLACC = 0 AND BREATHING IS EVEN AND UNLABORED ON 2L O2 NC. CONFUSION CONTINUES BUT REPORTS FROM STAFF (DR AND RN) STATE IT IS IMPROVING. HD CURRENTLY ONGOING. TB VIA NG TUBE STOPPED TO PERMIT HOB < 30 DEGREES. R IJ HD CATH DRESSING IS CLEAN AND DRY. R UA ML IS PATIENT AND INTACT. GUSTAFSON CATH RESERVOIR IS BELOW PATIENT DRAINING BY GRAVITY. BILATERAL SOFT WRISTS APPLIED, PULSES PALPATED DISTALLY AND CAP REFILL < 3 SECONDS BILATERALLY. SAFETY MEASURES IN PLACE, BED LOCKED AND IN LOWEST POSITION, SIDE RAILS UPX3, CALL LIGHT WITHIN REACH, BED ALARM ARMED.
--- NOTE | 2021-11-17 08:40 | NUR ---
RN NOTE HD DONE, NO COMPLICATIONS, 1L REMOVED.
[2021-11-17] MEDS: HYDROXYUREA 500 MG CAPSULE GT SCH (09:02)
[2021-11-17] MEDS: PANTOPRAZOLE 40 MG/PACK PACK NG SCH (09:02)
[2021-11-17] MEDS: LEVETIRACETAM SOL (5 ML) 100 MG/ML UDC GT SCH ×2 (09:02→21:07)
[2021-11-17] MEDS: ASCORBIC ACID 500 MG TABLET GT SCH ×2 (09:02→17:35)
[2021-11-17] MEDS: ASPIRIN 81 MG TAB.CHEW GT SCH (09:02)
[2021-11-17] MEDS: MIDODRINE HCL (5MG) 5 MG TABLET GT SCH ×3 (09:03→17:36)
[2021-11-17] MEDS: AMIODARONE HCL 200 MG TABLET GT SCH (09:03)
[2021-11-17] MEDS: Z GUARD REMEDY 4 OZ OINT TP SCH (09:04)
[2021-11-17] MEDS: APIXABAN 5 MG TABLET PO SCH ×2 (09:22→17:36)
[2021-11-17] MEDS: POTASSIUM CL. PREMIX PERIPHER. 50 ML IV SCH ×5 (11:52→16:31)
--- NOTE | 2021-11-17 15:00 | NUR ---
MD VISIT DR SONI VISITED PATIENT, SPOKE TO RN ABOUT MENTAL STATUS, EXPRESSED WORRY OF RARE COMPLICATION ASSOCIATED WITH DECREASED MENTAL STATUS AND HD. RN WILL PUT IN INTERVENTION TO PERFORM MENTAL STATUS ASSESSMENT BEFORE, DURING AND AFTER HD. MD AGREED WITH INTERVENTION.
[2021-11-17] MEDS: GABAPENTIN 100 MG CAPSULE GT SCH (18:06)
--- NOTE | 2021-11-17 19:20 | NUR ---
RN NOTES PT FOUND DISPLAYING NO S/S OF DISTRESS, FLACC = 0 AND BREATHING IS EVEN AND UNLABORED ON 2L O2 NC. CONFUSION CONTINUES. TUBE FEEDING VIA NG TUBE, HOB < 30 DEGREES. R IJ HD CATH DRESSING IS CLEAN AND DRY. R UA ML IS PATIENT AND INTACT. GUSTAFSON CATH RESERVOIR IS BELOW PATIENT DRAINING BY GRAVITY. BILATERAL SOFT WRISTS APPLIED, PULSES PALPATED DISTALLY AND CAP REFILL < 3 SECONDS BILATERALLY. SBAR AND REPORT GIVEN TO ROD BUSTER RN, ALL QUESTIONS ANSWERED. SAFETY MEASURES IN PLACE, BED LOCKED AND IN LOWEST POSITION, SIDE RAILS UPX3, CALL LIGHT WITHIN REACH, BED ALARM ARMED. PT ENDORSED IN STABLE CONDITION FOR RADHA.
[2021-11-17] MEDS: ATORVASTATIN 10 MG TABLET GT SCH (21:07)
[2021-11-18] VITALS (41 sets, daily range): BP systolic 83–134; BP diastolic 31–65
--- NOTE | 2021-11-18 00:49 | NUR ---
RN NOTE INFORMED IN CALL ROJAS MANRIQUEZ LACE INSPECTOR THAT PATIENT IS 4L NC 93%, RR 34, TACHYPNEIC, INCREASE IN WORK OF BREATHING, USE OF ACCESSORY MUSCLES, VERY LETHARGIC. DNR/DNI. RECEIVED ORDER FOR ABG. RT INFORMED. NOTED AND CARRIED OUT.
[2021-11-18 01:03] LABS: ABG BASE EXCESS 0.5 mmol/L; ABG OXYGEN SATURATION 92.8 % (92.0-98.5); ABG PCO2 56.8 mmHg (35.0-45.0); ABG PH 7.301 (7.350-7.450); ABG PO2 74.6 mmHg (75.0-100.0); AaDO2 116.2 mmHg; COHb 0.4 % (0.5-1.5); MetHb 0.3 % (0.0-1.5); O2Hb 92.2 % (94.0-97.0); SITE, ABG Left Radial; VENT MODE, BG Nasal Cannula
--- NOTE | 2021-11-18 01:04 | NUR ---
ABG DONE RN NOTIFIED
--- NOTE | 2021-11-18 01:23 | NUR ---
RN NOTE ROJAS MANRIQUEZ DIRECTOR OF MUSIC THERAPY MADE AWARE OF ABGS, RECEIVED ORDER FOR RESCUE BIPAP. RT INFORMED. ORDER CARRIED OUT.
[2021-11-18] MEDS ORDERED: NOREPINEPHRINE 32 MG in IV NS 0.9% 250 ML IV PRN (02:00)
[2021-11-18] MEDS ORDERED: NOREPINEPHRINE 4 MG/4 ML AMPUL IV ONE (02:36)
--- NOTE | 2021-11-18 02:36 | NUR ---
LEVOPHED STARTED BY NIGHTSHIFT NURSE DURING MEDITECH DOWNTIME. REFER TO PATIENTS PHYSICAL CHART
--- NOTE | 2021-11-18 07:30 | NUR ---
RN OPENING NOTES RECEIVED PATIENT REPORT FROM NIGHTSHIFT RN. PATIENT ON BIPAP 15/5 RESPIRATORY RATE AT 18 BREATHS PER MINUTE, FIO2 @ 40% OXYGEN SATURATION 90-92%. PATIENT IS ALERT AND ORIENTED TIMES 1, LETHARGIC BUT ABLE TO TRACK WITH HER EYES. ATTACHED TO COMMUNITY LIAISON READING SINUS RHYTHM WITH PREMATURE VENTRICULAR CONTRACTIONS AND INVERTED T-WAVES, EJECTION FRACTION AT 55%. GUSTAFSON CATHETER DRAINING CLEAR YELLOW URINE. IV ACCESS ON RIGHT UPPER ARM MIDLINE INFUSING LEVOPHED AT 0.04 MGS AN HOUR. SKIN ALTERATIONS DOCUMENTED. RIGHT NARE WITH NASOGASTRIC TUBE RUNNING JEVITY AT 30 MLS/HR, NO RESIDUAL. BILATERAL WRIST RESTRAINTS NOTED, CIRCULATION WITHIN NORMAL LIMITS. SAFETY MEASURES IN PLACE, BED IN LOWEST LOCKED POSITION, SIDE RAILS UP TIMES TWO, CALL LIGHT WITHIN REACH. WILL CONTINUE PLAN OF CARE AND ANTICIPATE NEEDS.
[2021-11-18] MEDS: LEVOTHYROXINE SODIUM 25 MCG TABLET GT SCH (07:50)
[2021-11-18] MEDS: ASPIRIN 81 MG TAB.CHEW GT SCH (08:06)
[2021-11-18] MEDS: LEVETIRACETAM SOL (5 ML) 100 MG/ML UDC GT SCH ×2 (08:06→20:04)
[2021-11-18] MEDS: AMIODARONE HCL 200 MG TABLET GT SCH (08:06)
[2021-11-18] MEDS: PANTOPRAZOLE 40 MG/PACK PACK NG SCH (08:06)
[2021-11-18] MEDS: ASCORBIC ACID 500 MG TABLET GT SCH ×2 (08:07→17:02)
[2021-11-18] MEDS: MIDODRINE HCL (5MG) 5 MG TABLET GT SCH ×3 (08:07→17:02)
[2021-11-18] MEDS: HYDROXYUREA 500 MG CAPSULE GT SCH (08:07)
[2021-11-18] MEDS: APIXABAN 5 MG TABLET PO SCH ×2 (08:09→17:03)
[2021-11-18] MEDS: Z GUARD REMEDY 4 OZ OINT TP SCH (09:23)
[2021-11-18] MEDS: IV NS 0.9% 250 ML IV PRN (09:24)
[2021-11-18 09:37] LABS: CALCIUM, SERUM 9.1 mg/dL (8.5-10.1); CARBON DIOXIDE 29 mmol/L (21-32); CHLORIDE 114 mmol/L (98-107); CREATININE 2.6 mg/dL (0.6-1.3); POTASSIUM 4.6 mmol/L (3.5-5.1); SODIUM SERUM 155 mmol/L (136-145); UREA NITROGEN, BLOOD 66 mg/dL (7-18)
[2021-11-18] MEDS ORDERED: NOREPINEPHRINE 8 MG in IV NS 0.9% 242 ML IV PRN (10:00)
[2021-11-18 10:09] LABS: ABG BASE EXCESS 0.8 mmol/L; ABG OXYGEN SATURATION 94.4 % (92.0-98.5); ABG PCO2 42.4 mmHg (35.0-45.0); ABG PO2 75.3 mmHg (75.0-100.0); AaDO2 88.8 mmHg; COHb 0.9 % (0.5-1.5); MetHb 0.2 % (0.0-1.5); O2Hb 93.4 % (94.0-97.0); SITE, ABG Right Radial; VENT MODE, BG AC 15/5 RR18 30%
--- NOTE | 2021-11-18 10:09 | NUR ---
PATIENT TAKEN OFF BIPAP AND SWITCHED TO NASAL CANULA AT 2 LITERS PER MINUTE, OXYGEN SATURATION AT 99%.
--- NOTE | 2021-11-18 10:10 | NUR ---
pt placed off bipap post abg per md order. sp02 96% 3lpm n/c
--- NOTE | 2021-11-18 10:11 | NUR ---
LEVOPHED OFF. VITAL SIGNS ARE FOLLOWS. BLOOD PRESSURE: 133/36 PULSE: 75 RESPIRATIONS: 26 OXYGEN SATURATION: 97% TEMPERATURE 97.9 DEGREES FAHRENHEIT
[2021-11-18 10:57] LABS: GLUCOSE 394 mg/dL (74-106)
[2021-11-18] MEDS: BLOOD SUGAR DIAGNOSTIC 1 EACH STRIP IN SCH ×2 (11:37→17:15)
[2021-11-18] MEDS: INSULIN REGULAR, HUMAN 100 UNIT/ML 3 ML VIAL SQ PRN ×2 (11:40→17:18)
[2021-11-18] MEDS: ALBUMIN 25% 25 GM in PREMIX 1 EA IV PRN (13:24)
[2021-11-18] MEDS: NEPRO 1,000 ML BOTTLE GT PRN (16:03)
[2021-11-18] MEDS: GABAPENTIN 100 MG CAPSULE GT SCH (17:02)
--- NOTE | 2021-11-18 18:46 | NUR ---
RN CLOSING NOTES PATIENT REMAINS ON BIPAP 15/5 RESPIRATORY RATE AT 26 BREATHS PER MINUTE, FIO2 @ 50% OXYGEN SATURATION 99-100%. PATIENT IS ALERT AND ORIENTED TIMES 1, LETHARGIC BUT ABLE TO TRACK WITH HER EYES. ATTACHED TO HOME HEALTH ATTENDANT READING SINUS RHYTHM WITH PREMATURE VENTRICULAR CONTRACTIONS AND INVERTED T-WAVES, EJECTION FRACTION AT 55%. GUSTAFSON CATHETER DRAINING CLEAR YELLOW URINE OUTPUT OF 160 MLS DURING SHIFT. IV ACCESS ON RIGHT UPPER ARM MIDLINE INFUSING NORMAL SALINE TKO. SKIN ALTERATIONS DOCUMENTED. RIGHT NARE WITH NASOGASTRIC TUBE RUNNING JEVITY AT 30 MLS/HR, NO RESIDUAL. NGT MARKED AT 65 CMS. BILATERAL WRIST RESTRAINTS NOTED, CIRCULATION WITHIN NORMAL LIMITS. SAFETY MEASURES IN PLACE, BED IN LOWEST LOCKED POSITION, SIDE RAILS UP TIMES TWO, CALL LIGHT WITHIN REACH. PATIENT'S AT THE BEDSIDE. ALL DUE MEDICATIONS GIVEN, KEPT CLEAN AND DRY. WILL ENDORSE TO NIGHTSHIFT RN FOR CONTINUATION OF CARE.
--- NOTE | 2021-11-18 19:30 | NUR ---
RN OPENING NOTES RECEIVED PATIENT IN BED, ON BIPAP 15/5 RESPIRATORY RATE AT 18 BREATHS PER MINUTE, FIO2 @ 50%, OXYGEN SATURATION RANGING BETWEEN 77-80%. PATIENT IS LETHARGIC BUT ABLE TO TRACK WITH HER EYES. ATTACHED TO FINISHED GOODS STOCK CLERK READING SINUS RHYTHM WITH PREMATURE VENTRICULAR CONTRACTIONS AND INVERTED T-WAVES. IV ACCESS ON RIGHT UPPER ARM MIDLINE NOTED. RIGHT NARE WITH NASOGASTRIC TUBE RUNNING JEVITY AT 30 ML/HR, NO RESIDUAL. GUSTAFSON CATHETER NOTED DRAINING CLEAR YELLOW URINE BY GRAVITY. ALL SAFETY MEASURES IN PLACE: BED IN LOWEST LOCKED POSITION, SIDE RAILS UP TIMES TWO, CALL LIGHT WITHIN REACH. WILL CONTINUE PLAN OF CARE AND ANTICIPATE NEEDS.
--- NOTE | 2021-11-18 20:14 | NUR ---
ICU/RN: PT NOTED ASYSTOLE ON BEDSIDE MONITOR. NO PALPABLE PULSES. NO CHEST RISE. VERIFIED BY MYSELF AND FRANCE ELISE.
--- NOTE | 2021-11-18 20:30 | NUR ---
RN NOTE NOTIFIED , MR. GAGNON ABOUT PT PASSING. CALLED [facility] AROUND 2025, TALKED TO AKILAH. AFTER GIVING THE NECESSARY INFO, WAS TOLD THAT THEY WILL NOT PROCEED WITH THE REFERRAL. REFERENCE #: [id number].
== END 2021-11-18 20:14 | DRG 871 ==
LOC: ER 10:15 → TRANSITION 16:55 → TELE-TD 19:04 → ICU 10-26 01:02 → TELE1 10-31 12:01 → MEDSG1 11-03 10:41 → TELE1 11-09 00:57 → ICU 11-09 07:26 → TELE1 11-11 12:05 → ICU 11-15 12:03
PROVIDERS: ADMIT Registered Nurse; ATTEND Internal Medicine
PROC: 30233N1 Transfusion of Nonautologous Red Blood Cells into Peripheral Vein, Percutaneous Approach (ICD-10-PCS; 2021-10-25)
PROC: 5A09457 Assistance with Respiratory Ventilation, 24-96 Consecutive Hours, Continuous Positive Airway Pressure (ICD-10-PCS; principal; 2021-10-26)
PROC: 05HB33Z Insertion of Infusion Device into Right Basilic Vein, Percutaneous Approach (ICD-10-PCS; 2021-11-05)
PROC: 5A1D70Z Performance of Urinary Filtration, Intermittent, Less than 6 Hours Per Day (ICD-10-PCS; 2021-11-08)
PROC: 05HM33Z Insertion of Infusion Device into Right Internal Jugular Vein, Percutaneous Approach (ICD-10-PCS; 2021-11-08)
PROC: B543ZZA Ultrasonography of Right Jugular Veins, Guidance (ICD-10-PCS; 2021-11-08)
DX: A41.9 Sepsis, unspecified organism (principal); E11.10 Type 2 diabetes mellitus with ketoacidosis without coma; G93.41 Metabolic encephalopathy; I21.A1 Myocardial infarction type 2; J96.01 Acute respiratory failure with hypoxia; N17.0 Acute kidney failure with tubular necrosis; I50.33 Acute on chronic diastolic (congestive) heart failure; J15.9 Unspecified bacterial pneumonia; D68.59 Other primary thrombophilia; E87.1 Hypo-osmolality and hyponatremia; I82.412 Acute embolism and thrombosis of left femoral vein; J98.11 Atelectasis; Z20.822 Contact with and (suspected) exposure to COVID-19; Z79.82 Long term (current) use of aspirin; Z79.4 Long term (current) use of insulin; Z79.899 Other long term (current) drug therapy; I11.0 Hypertensive heart disease with heart failure; E78.5 Hyperlipidemia, unspecified; E03.9 Hypothyroidism, unspecified; M10.9 Gout, unspecified; G40.909 Epilepsy, unspecified, not intractable, without status epilepticus; D46.9 Myelodysplastic syndrome, unspecified; I48.91 Unspecified atrial fibrillation; R13.10 Dysphagia, unspecified; Z66 Do not resuscitate; E88.09 Other disorders of plasma-protein metabolism, not elsewhere classified; L89.156 Pressure-induced deep tissue damage of sacral region; E11.65 Type 2 diabetes mellitus with hyperglycemia; Z79.890 Hormone replacement therapy; E87.6 Hypokalemia; D63.8 Anemia in other chronic diseases classified elsewhere
CPT/HCPCS: 36410; 36415; 36600; 70450-TC; 71045-TC; 76700-TC; 76705-TC; 76770-TC; 80048-TC; 80053-TC; 80076-TC; 80177; 80202-TC; 81001; 82010-TC; 82247-TC; 82248-TC; 82570-TC; 82728-TC; 82803-TC; 82947-TC; 82962-TC; 83540-TC; 83605-TC; 83735-TC; 84100-TC; 84300-TC; 84443-TC; 84484-TC; 85025-TC; 85610-TC; 85730-TC; 86704; 86705; 86706; 86803; 86850-TC; 87040-TC; 87081-TC; 87086-TC; 87340; 90935-TC; 92526; 92611-TC; 93307-TC; 93970-TC; 94760-TC; 94799-TC; 97112-TC; 97530-TC; A4216; C9113; C9803; G0378; J0282; J0692; J0696; J0885; J1644; J1650; J1815; J1940; J1953; J2060; J2543; J2930; J3370; J3480; J3490; J7030; J7040; J7042; J7050; J7060; J7070; P9016; P9047; Q9967